=== PATIENT | male | born 1930 | race Caucasian/White ===

== ENCOUNTER 2016-11-26 16:36 | Inpatient (IN) | payer MEDICARE, BC ==
[2016-11-26] MEDS ORDERED: NS 0.9% 1000 ML* 1,000 ML IV ONE (17:15)
[2016-11-26 17:52] LABS: Hematocrit 42 % (42-52); Hemoglobin 14.3 g/dl (14.0-18.0); Mean Corpuscular HGB Conc 34 g/dl (31-36); Mean Corpuscular Hemoglobin 30 pg (27-31); Mean Corpuscular Volume 88 fL (80-94); Mean Platelet Volume 8 um3 (7.4-10.4); Red Cell Distribution Width 13 % (10.5-15); White Blood Count 7.5 10^3/ul (3.5-10.8)
--- NOTE | 2016-11-26 17:53 | RAD ---
INDICATION: Syncope COMPARISON: August 10, 2014 TECHNIQUE: An AP portable view obtained at 1730 hours is submitted. FINDINGS: Bones/Soft Tissues: There are no acute bony findings. Cardiomediastinal: The cardiomediastinal silhouette is normal. Lungs: There are no infiltrates. Pleura: There are no pleural effusions. Other: None IMPRESSION: NO ACTIVE DISEASE.
[2016-11-26 18:09] LABS: Albumin 3.7 g/dL (3.2-5.2); BUN/Creatinine Ratio 26.7 (8-20); Calcium 8.9 mg/dL (8.6-10.3); EGFR African American 90.1 (>60); Magnesium 1.7 mg/dL (1.9-2.7); Potassium 3.5 mmol/L (3.5-5.0); Total Bilirubin 1.3 mg/dL (0.2-1.0); Total Protein 6.7 g/dL (6.4-8.9)
[2016-11-26 18:10] LABS: Troponin I 0.01 ng/mL (<0.04)
--- NOTE | 2016-11-26 18:14 | RAD ---
INDICATION: Syncope COMPARISON: CT brain August 10, 2014 TECHNIQUE: Noncontrast axial source images were acquired from the skull base to the vertex. FINDINGS: Ventricles/sulci: There is cortical atrophy with compensatory dilatation of the CSF spaces. Brain parenchyma: There is mild periventricular and subcortical white matter change compatible with chronic ischemia. Intracranial hemorrhage:None. Extra-axial spaces: There are no abnormal extra axial fluid collections or evidence of extra-axial mass. Calvarium: There is no calvarial fracture or other calvarial abnormality. Scalp: There is no evidence of scalp or extracalvarial soft tissue abnormality. Paranasal sinuses/mastoid: The paranasal sinuses and mastoid air cells are clear. 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 IMPRESSION: No acute intracranial findings. 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
--- NOTE | 2016-11-26 18:19 | RAD ---
INDICATION: Syncope COMPARISON: None TECHNIQUE: Noncontrast axial source images was performed from the skull base to the thoracic inlet. Coronal and and sagittal reformatted images were generated. FINDINGS: Vertebrae: There is no fracture or acute focal bony lesion. There is minor mid cervical facet arthropathy. Alignment: The craniocervical junction appears normal. The cervical vertebrae are normally aligned. Central Canal: There are no significant CT abnormalities of the central canal or foramina. MR imaging is a more sensitive method to evaluate the canal and foramina. Intervertebral disc spaces: The disc spaces are maintained. Brain: The visualized brain appears unremarkable. Soft tissues: The visualized soft tissue elements of the neck are unremarkable. The prevertebral soft tissues appear normal. The lung apices are clear. IMPRESSION: NO ACUTE FINDINGS. MINOR AGE-RELATED DEGENERATIVE CHANGE.
[2016-11-26] MEDS ORDERED: Diltiazem IV* 5 MG/ML 5 ML VIAL (for loading dose/IV Push) (25 MG) IV SLOW PU ONE (18:26)
[2016-11-26 18:35] LABS: TSH (Thyroid Stimulating Horm) 1.47 mcIU/mL (0.34-5.60)
[2016-11-26] MEDS ORDERED: Heparin VIAL(*) 5000 UNITS/ML VIAL (FIVE THOUSAND) IV SCH (20:00)
[2016-11-26] MEDS ORDERED: Heparin DRIP 25,000 UNITS(*) 25,000 UNITS/500 ML BAG IVPB SCH (20:00)
[2016-11-26] MEDS ORDERED: Potassium Chlor TAB* 20 MEQ TAB.ER PO ONE (20:08)
[2016-11-26] MEDS ORDERED: Magnesium Sulfate 2 GM IV* 2 GM/50 ML BAG IVPB ONE (20:09)
[2016-11-26] MEDS ORDERED: NS 0.9% 1000 ML* 1,000 ML IV SCH (20:15)
--- NOTE | 2016-11-26 20:20 | ED ---
Bill Nice Rebecca, scribed for Vika Coy MD on 11/26/16 at 1648 . Syncope/Near Syncope - HPI Summary HPI Summary: Pt is an 86 y/o M BIBA who presents to ED s/p syncopal episode with positive LOC. Pt is unsure of the exact time that LOC occurred, stating that it occurred at some point at 1200 today. Reports he "woke up on the floor" and could not get up due to "not having strength." LOC aggravated by nothing, alleviated by spontaneous resolution. Pt c/o generalized weakness, rhinorrhea and DOLAN. Pt reports DOLAN is currently moderate, ranked 4/10. Denies CP, SOB, urinary or bowel incontinence. Pt lives alone but has a daughter that lives locally. He expresses concerns that he would not like to be D/C and that he is concerned about the episode that occurred today. - History Of Current Complaint Chief Complaint: EDSyncope Time Seen by Provider: 11/26/16 16:47 Hx Obtained From: Patient Onset/Duration: Sudden Onset, Resolved Timing: Constant Context: Loss Of Consciousness Activity At Onset: Unknown Associated Head Trauma: Yes Aggravating Factor(s): Nothing Alleviating Factor(s): Spontaneous Resolution Associated Signs And Symptoms: Headache, Weakness - Generalized, Other - Rhinorrhea Frequency: Episodes x___ - 1 - Allergies/Home Medications Allergies/Adverse Reactions: Allergies Allergy/AdvReac Type Severity Reaction Status Date / Time No Known Allergies Allergy Verified 08/10/14 12:40 Home Medications: Home Medications Aspirin EC Low Dose* [Ecotrin EC Low Dose 81 MG*] 81 mg PO DAILY 11/26/16 [ History Confirmed 11/26/16] Atorvastatin* [Lipitor 20 MG*] 20 mg PO DAILY 11/26/16 [History Confirmed ] Phosphatidylserine [Neuro-Ps] 150 mg PO DAILY 11/26/16 [History Confirmed ] PMH/Surg Hx/FS Hx/Imm Hx Previously Healthy: No Endocrine/Hematology History: Denies: Hx Diabetes, Hx Thyroid Disease, Hx Anemia Cardiovascular History: Reports: Hx Coronary Artery Disease - 2 STENTS, Hx Hypercholesterolemia, Hx Hypertension - ON MEDICATION FOR, Hx Syncope - Admission Dx Denies: Hx Angina, Hx Atrial Fibrillation, Hx Myocardial Infarction, Hx Pacemaker/ICD, Hx Rheumatic Fever, Hx Valvular Heart Disease Respiratory History: Denies: Hx Asthma, Hx Chronic Obstructive Pulmonary Disease (COPD) GI History: Reports: Hx Gall Bladder Disease, Hx Gastroesophageal Reflux Disease , Hx Hiatal Hernia History: Reports: Hx Benign Prostatic Hyperplasia Denies: Hx Dialysis, Hx Kidney Infection, Hx Kidney Stones Musculoskeletal History: Reports: Hx Back Problems - ruptured disc Denies: Hx Arthritis Sensory History: Reports: Hx Cataracts - surgery to both eyes, Hx Contacts or Glasses Denies: Hx Glaucoma, Hx Macular Degeneration, Hx Deafness, Hx Hearing Aid, Hx Hearing Problem Opthamlomology History: Reports: Hx Cataracts - surgery to both eyes, Hx Contacts or Glasses Denies: Hx Glaucoma, Hx Macular Degeneration Neurological History: Reports: Other Neuro Impairments/Disorders - aneurysm on CT brain 11/26/16, stable Psychiatric History: Denies: Hx Panic Disorder - Surgical History Surgery Procedure, Year, and Place: CATARACTS. TOOTH EXTRACTIONS. CARDIAC STENTS--4-5 YEARS AGO-[place]. gallbladder removed 2013. ERCP-2013. cholecystectomy-02/2014 Hx Anesthesia Reactions: No Infectious Disease History: No Infectious Disease History: Denies: Traveled Outside the [place] in Last 30 Days - Family History Known Family History: Positive: Cardiac Disease, Other - Stroke - Social History Lives: Alone Alcohol Use: Occasionally Alcohol Amount: 1 BEER Substance Use Type: Reports: None Smoking Status (MU): Former Smoker Amount Used/How Often: 1/2- 1 PPD X ? YEARS Have You Smoked in the Last Year: No Review of Systems Positive: Fatigue Positive: Nasal Discharge Negative: Chest Pain Negative: Shortness Of Breath Gastrointestinal: Negative Negative: incontinence Musculoskeletal: Negative Positive: Headache, Weakness - Generalized, Syncope - with positive LOC All Other Systems Reviewed And Are Negative: Yes Physical Exam Triage Information Reviewed: Yes Vital Signs On Initial Exam: Initial Vitals Temp Pulse Resp BP Pulse Ox 98.8 F 88 16 136/55 99 11/26/16 16:41 11/26/16 16:41 11/26/16 16:41 11/26/16 16:41 11/26/16 16:41 Vital Signs Reviewed: Yes Appearance: Positive: Well-Nourished, Ill-Appearing, Pain Distress Skin: Positive: Skin Color Reflects Adequate Perfusion, Other - Normal Head/Face: Positive: Normal Head/Face Inspection Eyes: Positive: Conjunctiva Clear ENT: Positive: Normal ENT inspection, Hearing grossly normal. Negative: Muffled /hoarse voice Neck: Positive: Supple, Nontender, No Lymphadenopathy Respiratory/Lung Sounds: Positive: Clear to Auscultation, Breath Sounds Present , Other - No respiratory distress Cardiovascular: Positive: RRR, Pulses are Symmetrical in both Upper and Lower Extremities, Tachycardia - afib on monitor, Other - Brisk capillary refill. Negative: Murmur, Rub Abdomen Description: Positive: Nontender, No Organomegaly, Soft. Negative: CVA Tenderness (R), CVA Tenderness (L), Distended, Guarding, Hepatomegaly, McBurney' s Point Tenderness, Peritoneal Signs, Pulsatile Mass, Splenomegaly Bowel Sounds: Positive: Present Musculoskeletal: Positive: Strength/ROM Intact. Negative: Edema Left, Edema Right Neurological: Positive: Sensory/Motor Intact, Alert, Oriented to Person Place, Time, Speech Normal. Negative: Facial Droop, Focal Deficit @, Slurred Speech Psychiatric: Positive: Normal Diagnostics - Vital Signs Vital Signs Temp Pulse Resp BP Pulse Ox 11/26/16 16:46 83 17 98 11/26/16 16:45 136/55 11/26/16 16:41 98.8 F 88 16 136/55 99 - Laboratory Lab Results: Lab Results 11/26/16 11/26/16 11/26/16 Range/Units 17:38 17:38 17:38 WBC 7.5 (3.5-10.8) 10^3/ul RBC 4.80 (4.0-5.4) 10^6/ul Hgb 14.3 (14.0-18.0) g/dl Hct 42 (42-52) % MCV 88 (80-94) fL MCH 30 (27-31) pg MCHC 34 (31-36) g/dl RDW 13 (10.5-15) % Plt Count 142 L (150-450) 10^3/ul MPV 8 (7.4-10.4) um3 Neut % (Auto) 80.4 (38-83) % Lymph % (Auto) 8.6 L (25-47) % Elmore % (Auto) 10.6 H (1-9) % Eos % (Auto) 0.1 (0-6) % Baso % (Auto) 0.3 (0-2) % Absolute Neuts (auto) 6.0 (1.5-7.7) 10^3/ul Absolute Lymphs (auto) 0.6 L (1.0-4.8) 10^3/ul Absolute Monos (auto) 0.8 (0-0.8) 10^3/ul Absolute Eos (auto) 0 (0-0.6) 10^3/ul Absolute Basos (auto) 0 (0-0.2) 10^3/ul Absolute Nucleated RBC 0 10^3/ul Nucleated RBC % 0 INR (Anticoag Therapy) 1.14 H (0.89-1.11) APTT 29.9 (26.0-36.3) seconds Sodium 134 (133-145) mmol/L Potassium 3.5 (3.5-5.0) mmol/L Chloride 97 L (101-111) mmol/L Carbon Dioxide 29 (22-32) mmol/L Anion Gap 8 (2-11) mmol/L BUN 27 H (6-24) mg/dL Creatinine 1.01 (0.67-1.17) mg/dL Est GFR ( Amer) 90.1 (>60) Est GFR (Non-Af Amer) 70.0 (>60) BUN/Creatinine Ratio 26.7 H (8-20) Glucose 130 H (70-100) mg/dL Lactic Acid (0.5-2.0) mmol/L Calcium 8.9 (8.6-10.3) mg/dL Magnesium 1.7 L (1.9-2.7) mg/dL Total Bilirubin 1.30 H (0.2-1.0) mg/dL AST 18 (13-39) U/L ALT 16 (7-52) U/L Alkaline Phosphatase 53 (34-104) U/L Total Creatine Kinase 54 (10-223) U/L Troponin I 0.01 (<0.04) ng/mL B-Natriuretic Peptide ( - 100) pg/mL Total Protein 6.7 (6.4-8.9) g/dL Albumin 3.7 (3.2-5.2) g/dL Globulin 3.0 (2-4) g/dL Albumin/Globulin Ratio 1.2 (1-3) TSH 1.47 (0.34-5.60) mcIU/mL 11/26/16 11/26/16 Range/Units 17:38 17:38 WBC (3.5-10.8) 10^3/ul RBC (4.0-5.4) 10^6/ul Hgb (14.0-18.0) g/dl Hct (42-52) % MCV (80-94) fL MCH (27-31) pg MCHC (31-36) g/dl RDW (10.5-15) % Plt Count (150-450) 10^3/ul MPV (7.4-10.4) um3 Neut % (Auto) (38-83) % Lymph % (Auto) (25-47) % Elmore % (Auto) (1-9) % Eos % (Auto) (0-6) % Baso % (Auto) (0-2) % Absolute Neuts (auto) (1.5-7.7) 10^3/ul Absolute Lymphs (auto) (1.0-4.8) 10^3/ul Absolute Monos (auto) (0-0.8) 10^3/ul Absolute Eos (auto) (0-0.6) 10^3/ul Absolute Basos (auto) (0-0.2) 10^3/ul Absolute Nucleated RBC 10^3/ul Nucleated RBC % INR (Anticoag Therapy) (0.89-1.11) APTT (26.0-36.3) seconds Sodium (133-145) mmol/L Potassium (3.5-5.0) mmol/L Chloride (101-111) mmol/L Carbon Dioxide (22-32) mmol/L Anion Gap (2-11) mmol/L BUN (6-24) mg/dL Creatinine (0.67-1.17) mg/dL Est GFR ( Amer) (>60) Est GFR (Non-Af Amer) (>60) BUN/Creatinine Ratio (8-20) Glucose (70-100) mg/dL Lactic Acid 0.8 (0.5-2.0) mmol/L Calcium (8.6-10.3) mg/dL Magnesium (1.9-2.7) mg/dL Total Bilirubin (0.2-1.0) mg/dL AST (13-39) U/L ALT (7-52) U/L Alkaline Phosphatase (34-104) U/L Total Creatine Kinase (10-223) U/L Troponin I (<0.04) ng/mL B-Natriuretic Peptide 91 ( - 100) pg/mL Total Protein (6.4-8.9) g/dL Albumin (3.2-5.2) g/dL Globulin (2-4) g/dL Albumin/Globulin Ratio (1-3) TSH (0.34-5.60) mcIU/mL Result Diagrams: 11/26/16 17:38 11/26/16 17:38 Lab Statement: Any lab studies that have been ordered have been reviewed, and results considered in the medical decision making process. - Radiology CXR Xray Interpretation: No Acute Changes - NO ACTIVE DISEASE Radiology Interpretation Completed By: Radiologist - CT Brain CT CT Interpretation: No Acute Changes - No acute intracranial findings. Stable 5.[address] Interpretation Completed By: Radiologist C-Spine CT CT Interpretation: No Acute Changes - NO ACUTE FINDINGS. MINOR AGE-RELATED DEGENERATIVE CHANGE. CT Interpretation Completed By: Radiologist - EKG 1650 Cardiac Rate: NL - 80 bpm EKG Rhythm: Sinus Rhythm Ectopy: PACs EKG Interpretation: Nl AV/IV CT, nl QTC, negative axis (-12) EKG Comparison: No Significant Change - As compared with EKG on 08/11/2014 Re-Evaluation - Re-Evaluation First Eval Re-Evaluation Time: 18:18 Change: Unchanged Comment: Discussed his intermittent A Fib since being in the ED. Reports he has no Hx of a fib and continues to c/o DOLAN. Course/Dx Assessment/Plan: Pt is an 86 y/o M BIBA who presents to ED s/p syncopal episode with positive LOC. Pt is unsure of the exact time that LOC occurred, stating that it occurred at some point at 1200 today. LOC aggravated by nothing, alleviated by spontaneous resolution. Pt c/o generalized weakness, rhinorrhea and DOLAN. Pt reports DOLAN is currently moderate, ranked 4/10. Denies CP, SOB, urinary or bowel incontinence. CXR, Brain CT and C-Spine CT reveal no acute findings. EKG reveals normal sinus rhythm with nl AV/IV CT, nl QTC, negative axis (-12) and is unchanged from a prior EKG. On monitor pt noted with rapid rhythm 130-160's consistent with new onset afib. Diltiazem 20mg IV given with decrease rate to 100's/ Discussed care of pt with Dr. Proctor who accepts pt for admission. Pt will be admitted with Dx of new onset A-fib and syncope. He understands and agrees. - Diagnoses Differential Diagnosis/HQI/PQRI: Positive: Coronary Artery Disease, Dysrhythmia , Metabolic Reaction, Myocardial Infarction Provider Diagnoses: New onset a-fib, Syncope - Physician Notifications Discussed Care of Patient With: Piotr Proctor Time Discussed With Above Provider: 19:15 Instructed by Provider To: Other - Accepts pt for admission. Discharge - Discharge Plan Condition: Good Disposition: ADMITTED TO [facility] The documentation as recorded by the Bill garay Rebecca accurately reflects the service I personally performed and the decisions made by , Vika Coy MD.
[2016-11-26 21:07] LABS: Urine Bilirubin Negative (Negative); Urine Glucose Negative (Negative); Urine Nitrite Negative (Negative)
[2016-11-26] MEDS: Metoprolol Tartrate TAB* 25 MG PO SCH (21:21)
--- NOTE | 2016-11-27 06:07 | HP ---
HISTORY AND PHYSICAL: DATE OF ADMISSION: 11/26/16 PRIMARY CARE PROVIDER: Esvin Tristan MD. ATTENDING PHYSICIAN: Ed Sim MD * (dictated by Anca Delgadillo NP). CHIEF COMPLAINT: Syncopal episode. HISTORY OF PRESENT ILLNESS: Mr. Campbell is an 86-year-old man with past medical history significant for coronary artery disease, hypertension, hyperlipidemia and valvular heart disease who presents to the emergency room with complaints of a headache and syncopal episode earlier today at home. According to Mr. Campbell, he has been feeling in his normal state of health with the exception of having sweats earlier today that soaked his clothes. He also reports three days of low back pain. He is unsure if this is similar to her normal low back pain or if this is new. He denies any numbness, tingling or extremity weakness. He denies any fever, chills, chest pain, palpitations, cough, shortness of breath, nausea, vomiting and diarrhea. The patient reports a headache since the syncopal episode that starts and goes up the back of his neck and into his head; if he does not think about, it it does not bother him. The patient also reports intermittent urinary incontinence. He says that this is normal for him. Due to concern, the patient presented to the emergency room for further evaluation of his symptoms. While in the emergency room, the patient initially had an EKG showing sinus rhythm with a rate of 80 and no acute signs of ischemia. The patient had a chest x-ray showing no active cardiopulmonary disease. He had a brain CT showing no acute intracranial findings and a stable 5.5 mm basilar tip aneurysm. The patient had a C-spine CT scan showing no acute findings and minor age-related degenerative changes. During the patient's time down in the ER, he was monitored on a accounting machine mechanic at which time, he was noted to have elevated heart rate. Upon further assessment, it appeared the patient was in an atrial fibrillation. The patient received a bolus of IV Cardizem and converted in a sinus rhythm with the rate into the 80s. The patient had labs that were fairly unremarkable. His potassium was noted to be 3.5 and his magnesium 1.7. Troponin 0.01 and TSH 1.47. The hospitalists were asked to evaluate the patient for admission. PAST MEDICAL HISTORY: 1. Mixed valvular disease. 2. Coronary artery disease. 3. Hyperlipidemia. 4. Hypertension. 5. GERD. 6. Gallstones. 7. BPH. 8. Chronic back pain. PAST SURGICAL HISTORY: 1. Status post bilateral cataract extraction. 2. Status post cholecystectomy. 3. Status post cardiac catheterization with angioplasty and cardiac stents x2 placed in the LAD and RCA. HOME MEDICATIONS: Include, 1. Potassium 20 mEq oral every morning and 10 mEq oral every evening. 2. Omeprazole 20 mg oral daily. 3. Multivitamin one tablet oral daily. 4. Metoprolol tartrate 25 mg oral twice daily. 5. Hydrochlorothiazide 25 mg oral daily. 6. Fosinopril 40 mg oral daily. 7. Aspirin 81 mg oral daily. 8 Atorvastatin 20 mg oral daily. 9. Glucosamine 3 tablets oral daily. 10. Back and Body 500/30 2.5 one to two tablets oral as needed for pain. 11. Neuro PS 150 mg oral daily. ALLERGIES: No known drug allergies. FAMILY HISTORY: The patient denies any family history of coronary artery disease or diabetes mellitus. The patient had an uncle with a history of brain tumor. SOCIAL HISTORY: The patient is a former smoker. He quit smoking approximately 30 years ago. Prior to that he smoked on and off for approximately 10 years. The patient occasionally drinks alcohol. He denies recreational drug use. He is retired, lives with his significant other. His daughter Amanda Campbell will be his surrogate decision maker in the event that he is unable to make decisions for himself. REVIEW OF SYSTEMS: I performed a 14-point review of systems. All the pertinent positives and negatives are mentioned in the history of present illness. The remaining review of systems is negative. PHYSICAL EXAMINATION GENERAL APPEARANCE: The patient is alert, pleasant, appears to be in no acute distress. VITAL SIGNS: Temperature 98.8, heart rate 101, respiratory rate 20, O2 sat 94% on room air, blood pressure 124/58. HEENT: Normocephalic, atraumatic. Pupils are equal and reactive to light. Extraocular movements are intact. RESPIRATORY: There is no accessory muscle use and lungs are clear to auscultation bilateral. CARDIOVASCULAR: Regular rate and rhythm. S1, S2 present. There are no murmurs , rubs, or gallops heard. ABDOMEN: Soft, nontender, nondistended. There are bowel sounds present x4. EXTREMITIES: There is no lower extremity edema. DP and PT pulses are 2+ and symmetric. MUSCULOSKELETAL: There is no clubbing or cyanosis noted. The patient exhibits good strength in all extremities. NEUROLOGIC: The patient is alert and oriented x4. Cranial nerves II through XII are grossly intact. PSYCHOLOGICAL: The patient is calm and cooperative. SKIN: There are no rashes or abnormalities seen. DIAGNOSTIC STUDIES/LABORATORY DATA: Sodium 134, potassium 3.5, chloride 97, CO2 29, BUN 27, creatinine 1.01, and glucose 130. Magnesium 1.7, troponin 0.01 , TSH 1.47. White blood cell count 7.5, hemoglobin 14.3, hematocrit 42, and platelet count 142. EKG shows a sinus rhythm with a rate of 80. No signs of acute ischemia. There are no changes when compared to previous EKG from 08/21/14. 1. Chest x-ray from today. Radiologist impression: No active disease. 2. Brain CT from today. Radiologist impression: No acute intracranial findings. 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 3. Cervical spine CT from today. Radiologist impression: No acute findings. Minor age-related degenerative change. IMPRESSION: Mr. Campbell is an 86-year-old man with past medical history significant for coronary artery disease, hypertension, hyperlipidemia, who presents to the emergency room with complaints of a syncopal episode with loss of consciousness. He will be admitted under observation for new onset atrial fibrillation and syncope. ASSESSMENT/PLAN: 1. New onset atrial fibrillation. The patient is currently in sinus rhythm. He received a bolus of IV Cardizem in the ER. For now, we will hold on any further medications. We will continue the patient on his home metoprolol dosing. The patient will be placed on a heparin drip. I have discussed with him the need for anticoagulation as his [id number] score is 4 putting him at a stroke risk of 4.8% per year and greater than 90,000 patients and 6.7% risk of stroke/TIA/systemic embolism. Due to the patient's history of valvular heart disease, he is not a candidate for Xarelto and would need to be on warfarin or Eliquis. The patient last had an echocardiogram in May 2016 showing a mixed valvular heart disease with an EF of 55% to 60%, aortic valve with mild regurgitation, mitral valve trace regurgitation, tricuspid mild-to- moderate regurgitation and pulmonic mild regurgitation. The patient will have a goal of potassium of greater than 4 and magnesium of greater than 2. 2. Syncope. The patient will be monitored on telemetry. I suspect part of this is related to the patient being slightly dehydrated. We will get him another liter of IV fluids, overnight and monitor her on telemetry. At this time, we will hold of an echocardiogram as he just had one in May. 3. Electrolyte abnormalities. Hypomagnesemia and hypokalemia. The patient will receive electrolyte replacement. We will recheck the labs in the morning. Due to the patient's new onset of atrial fibrillation he will have a goal of potassium greater than 4 and magnesium greater than 2. 4. Hypertension. At this time, the patient is normotensive. He will be continued on home metoprolol and fosinopril. 5. Hyperlipidemia. The patient will be continued on his home atorvastatin. 6. History of coronary artery disease. The patient will be continued on his beta- delbert, aspirin and statin. 7. Fluid, electrolytes, and nutrition. Heart healthy diet. 8. Code status. Full code. 9. DVT prophylaxis. The patient is at high risk and will be placed on a heparin drip. 10. Disposition. Observation. TIME SPENT: The time for this admission was 60 minutes, greater than half of that was spent with the patient and family discussing medications, past medical history, and the events leading up to his arrival today and performing a physical examination. The case was then reviewed with the attending, Dr. Sim, who agrees with the plan of care. Reviewed by OSMANI CANCHOLA 11/27/16 [id number]/[facility] #: [id number] JERRY
[2016-11-27 06:15] LABS: Hematocrit 39 % (42-52); Hemoglobin 13.2 g/dl (14.0-18.0); Mean Corpuscular HGB Conc 34 g/dl (31-36); Mean Corpuscular Hemoglobin 30 pg (27-31); Mean Corpuscular Volume 88 fL (80-94); Mean Platelet Volume 8 um3 (7.4-10.4); Red Cell Distribution Width 13 % (10.5-15); White Blood Count 5.4 10^3/ul (3.5-10.8)
[2016-11-27 06:28] LABS: BUN/Creatinine Ratio 26.7 (8-20); Calcium 8.1 mg/dL (8.6-10.3); EGFR African American 90.1 (>60); Magnesium 2.1 mg/dL (1.9-2.7); Potassium 3.4 mmol/L (3.5-5.0)
[2016-11-27] MEDS ORDERED: Lisinopril TAB* 10 MG PO SCH ×2 (09:00→13:22)
[2016-11-27] MEDS: Acetaminophen TAB* 325 MG PO PRN ×3 (09:03→20:14)
[2016-11-27] MEDS: Atorvastatin* 20 MG TAB PO SCH (09:04)
[2016-11-27] MEDS: Aspirin EC Low Dose* 81 MG TAB.EC PO SCH (09:04)
[2016-11-27] MEDS: Potassium Chlor TAB* 10 MEQ TAB.ER PO SCH (09:04)
[2016-11-27] MEDS: Metoprolol Tartrate TAB* 25 MG PO SCH (09:04)
[2016-11-27] MEDS: Hydrochlorothiazide TAB* 25 MG PO SCH (09:04)
[2016-11-27] MEDS: Omeprazole CAP* 20 MG PO SCH (09:04)
[2016-11-27] MEDS: Multivitamins/Minerals TAB PO SCH (09:04)
--- NOTE | 2016-11-27 13:47 | PN ---
Subjective Date of Service: 11/27/16 Interval History: C/O lower back pain. Had syncope yesterday, also 2 yrs ago. No palpitations. His SO states his HR was 120 in the ED. Objective Active Medications: Acetaminophen (Tylenol Tab*) 650 mg PO Q4H PRN PRN Reason: FEVER,PAIN Last Admin: 11/27/16 13:28 Dose: 650 mg Aspirin (Aspirin Ec Low Dose*) 81 mg PO DAILY [facility] Last Admin: 11/27/16 09:04 Dose: 81 mg Atorvastatin Calcium (Lipitor*) 20 mg PO DAILY [facility] Last Admin: 11/27/16 09:04 Dose: 20 mg Hydrochlorothiazide (Hydrodiuril Tab*) 25 mg PO DAILY [facility] Last Admin: 11/27/16 09:04 Dose: 25 mg Lisinopril (Prinivil Tab*) 10 mg PO DAILY [facility] Lisinopril (Prinivil Tab*) 20 mg PO DAILY [facility] Metoprolol Tartrate (Lopressor Tab*) 50 mg PO BID [facility] Multivitamins/Minerals (Theragran/Minerals Tab*) 1 tab PO DAILY [facility] Last Admin: 11/27/16 09:04 Dose: 1 tab Omeprazole (Prilosec Cap*) 20 mg PO DAILY [facility] Last Admin: 11/27/16 09:04 Dose: 20 mg Potassium Chloride (Klor Con Er Tab*) 10 meq PO DAILY [facility] Last Admin: 11/27/16 09:04 Dose: 10 meq Warfarin Sodium (Coumadin Tab(*)) 5 mg PO DAILY@1700 [facility] PRN Reason: Protocol Vital Signs 11/26/16 11/26/16 11/27/16 19:51 23:49 04:02 Temperature 100.1 F 99.3 F 99.7 F Pulse Rate 86 80 82 Respiratory 20 16 16 Rate Blood Pressure 131/62 108/49 117/55 (mmHg) O2 Sat by Pulse 99 94 94 Oximetry 11/27/16 11/27/16 08:14 11:16 Temperature 101.1 F 98.9 F Pulse Rate 96 62 Respiratory 16 16 Rate Blood Pressure 130/62 105/51 (mmHg) O2 Sat by Pulse 91 97 Oximetry Oxygen Devices in Use Now: None Appearance: Alert, partly up in bed. In good spirits. Looks comfortable at rest. Eyes: No Scleral Icterus Neck: NL Appearance and Movements; NL JVP, No Thyroid Enlargement, Masses Respiratory: Symmetrical Chest Expansion and Respiratory Effort, Clear to Auscultation, Clear to Percussion Cardiovascular: RRR, No Edema, - - 1/6 systolic murmur across precordium Extremities: No Edema, No Clubbing, Cyanosis, - Skin: No Rash or Ulcers, No Nodules or Sclerosis, - Neurological: Alert and Oriented x 3, NL Sensation, - - Sl wide -based gait. Got OOB unassisted with mild discomfort, walked to BR. Result Diagrams: 11/27/16 05:56 11/27/16 05:56 Additional Lab and Data: Lab Results 11/26/16 11/26/16 11/26/16 Range/Units 17:38 17:38 17:38 WBC 7.5 (3.5-10.8) 10^3/ul RBC 4.80 (4.0-5.4) 10^6/ul Hgb 14.3 (14.0-18.0) g/dl Hct 42 (42-52) % MCV 88 (80-94) fL MCH 30 (27-31) pg MCHC 34 (31-36) g/dl RDW 13 (10.5-15) % Plt Count 142 L (150-450) 10^3/ul MPV 8 (7.4-10.4) um3 Neut % (Auto) 80.4 (38-83) % Lymph % (Auto) 8.6 L (25-47) % [place] % (Auto) 10.6 H (1-9) % Eos % (Auto) 0.1 (0-6) % Baso % (Auto) 0.3 (0-2) % Absolute Neuts (auto) 6.0 (1.5-7.7) 10^3/ul Absolute Lymphs (auto) 0.6 L (1.0-4.8) 10^3/ul Absolute Monos (auto) 0.8 (0-0.8) 10^3/ul Absolute Eos (auto) 0 (0-0.6) 10^3/ul Absolute Basos (auto) 0 (0-0.2) 10^3/ul Absolute Nucleated RBC 0 10^3/ul Nucleated RBC % 0 INR (Anticoag Therapy) 1.14 H (0.89-1.11) APTT 29.9 (26.0-36.3) seconds Sodium 134 (133-145) mmol/L Potassium 3.5 (3.5-5.0) mmol/L Chloride 97 L (101-111) mmol/L Carbon Dioxide 29 (22-32) mmol/L Anion Gap 8 (2-11) mmol/L BUN 27 H (6-24) mg/dL Creatinine 1.01 (0.67-1.17) mg/dL Est GFR ( Amer) 90.1 (>60) Est GFR (Non-Af Amer) 70.0 (>60) BUN/Creatinine Ratio 26.7 H (8-20) Glucose 130 H (70-100) mg/dL Lactic Acid (0.5-2.0) mmol/L Calcium 8.9 (8.6-10.3) mg/dL Magnesium 1.7 L (1.9-2.7) mg/dL Total Bilirubin 1.30 H (0.2-1.0) mg/dL AST 18 (13-39) U/L ALT 16 (7-52) U/L Alkaline Phosphatase 53 (34-104) U/L Total Creatine Kinase 54 (10-223) U/L Troponin I 0.01 (<0.04) ng/mL B-Natriuretic Peptide ( - 100) pg/mL Total Protein 6.7 (6.4-8.9) g/dL Albumin 3.7 (3.2-5.2) g/dL Globulin 3.0 (2-4) g/dL Albumin/Globulin Ratio 1.2 (1-3) TSH 1.47 (0.34-5.60) mcIU/mL 11/26/16 11/26/16 Range/Units 17:38 17:38 WBC (3.5-10.8) 10^3/ul RBC (4.0-5.4) 10^6/ul Hgb (14.0-18.0) g/dl Hct (42-52) % MCV (80-94) fL MCH (27-31) pg MCHC (31-36) g/dl RDW (10.5-15) % Plt Count (150-450) 10^3/ul MPV (7.4-10.4) um3 Neut % (Auto) (38-83) % Lymph % (Auto) (25-47) % [place] % (Auto) (1-9) % Eos % (Auto) (0-6) % Baso % (Auto) (0-2) % Absolute Neuts (auto) (1.5-7.7) 10^3/ul Absolute Lymphs (auto) (1.0-4.8) 10^3/ul Absolute Monos (auto) (0-0.8) 10^3/ul Absolute Eos (auto) (0-0.6) 10^3/ul Absolute Basos (auto) (0-0.2) 10^3/ul Absolute Nucleated RBC 10^3/ul Nucleated RBC % INR (Anticoag Therapy) (0.89-1.11) APTT (26.0-36.3) seconds Sodium (133-145) mmol/L Potassium (3.5-5.0) mmol/L Chloride (101-111) mmol/L Carbon Dioxide (22-32) mmol/L Anion Gap (2-11) mmol/L BUN (6-24) mg/dL Creatinine (0.67-1.17) mg/dL Est GFR ( Amer) (>60) Est GFR (Non-Af Amer) (>60) BUN/Creatinine Ratio (8-20) Glucose (70-100) mg/dL Lactic Acid 0.8 (0.5-2.0) mmol/L Calcium (8.6-10.3) mg/dL Magnesium (1.9-2.7) mg/dL Total Bilirubin (0.2-1.0) mg/dL AST (13-39) U/L ALT (7-52) U/L Alkaline Phosphatase (34-104) U/L Total Creatine Kinase (10-223) U/L Troponin I (<0.04) ng/mL B-Natriuretic Peptide 91 ( - 100) pg/mL Total Protein (6.4-8.9) g/dL Albumin (3.2-5.2) g/dL Globulin (2-4) g/dL Albumin/Globulin Ratio (1-3) TSH (0.34-5.60) mcIU/mL Assess/Plan/Problems-Billing Assessment: - Patient Problems (1) PAF (paroxysmal atrial fibrillation) Current Visit: Yes Status: Acute Code(s): I48.0 - PAROXYSMAL ATRIAL FIBRILLATION SNOMED Code(s): 558734784 Comment: Start warfarin. Increase metoprolol to 50 mg bid and reduce lisinopril to 10 mg daily. Anticipate discharge 11/28 if stable. (2) CAD (coronary artery disease) Current Visit: No Status: Chronic Priority: Medium Code(s): I25.10 - ATHSCL HEART DISEASE OF [place] CORONARY ARTERY W/O ANG PCTRS SNOMED Code(s): 34240817 Comment: Continue ASA, statin, BB. (3) HTN (hypertension) Current Visit: No Status: Chronic Priority: High Code(s): I10 - ESSENTIAL (PRIMARY) HYPERTENSION SNOMED Code(s): 70887219 Comment: Will change back to fosinopril on discharge. (4) GERD (gastroesophageal reflux disease) Current Visit: Yes Status: Acute Code(s): K21.9 - GASTRO-ESOPHAGEAL REFLUX DISEASE WITHOUT ESOPHAGITIS SNOMED Code(s): 464022671 Comment: Continue omeprazole.
--- NOTE | 2016-11-27 14:12 | RAD ---
INDICATION: Low back pain. COMPARISON: There are no prior studies available for comparison. TECHNIQUE: 3 views of the lumbar spine were obtained including lateral, AP and a coned-down lateral view of the lumbar sacral junction. FINDINGS: There is a mild lumbar scoliosis convex toward the right side. The vertebra are otherwise in normal alignment. No fracture is seen. There is [id number] disc space narrowing and endplate hypertrophic changes at the L1-L2, L2-L3, L4-L5 and L5-S1 levels consistent with mild to moderate diffuse degenerative disc disease. 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
[2016-11-27] MEDS: Warfarin TAB(*) 5 MG PO SCH (16:22)
[2016-11-27] MEDS: Metoprolol Tartrate TAB* 50 mg PO SCH (20:14)
[2016-11-28] MEDS: Acetaminophen TAB* 325 MG PO PRN ×3 (03:44→22:15)
[2016-11-28 05:32] LABS: Hematocrit 38 % (42-52); Hemoglobin 13.2 g/dl (14.0-18.0); Mean Corpuscular HGB Conc 35 g/dl (31-36); Mean Corpuscular Hemoglobin 30 pg (27-31); Mean Corpuscular Volume 87 fL (80-94); Mean Platelet Volume 8 um3 (7.4-10.4); Red Blood Count 4.39 10^6/ul (4.0-5.4); Red Cell Distribution Width 13 % (10.5-15); White Blood Count 4.9 10^3/ul (3.5-10.8)
[2016-11-28 09:09] LABS: Urine Bilirubin Negative (Negative); Urine Glucose Negative (Negative); Urine Nitrite Negative (Negative)
[2016-11-28] MEDS: Omeprazole CAP* 20 MG PO SCH (09:12)
[2016-11-28] MEDS: Multivitamins/Minerals TAB PO SCH (09:12)
[2016-11-28] MEDS: Atorvastatin* 20 MG TAB PO SCH (09:12)
[2016-11-28] MEDS: Aspirin EC Low Dose* 81 MG TAB.EC PO SCH (09:12)
[2016-11-28] MEDS: Potassium Chlor TAB* 10 MEQ TAB.ER PO SCH (09:13)
[2016-11-28] MEDS: traMADol TAB* 50 MG PO PRN (09:13)
[2016-11-28] MEDS: Lisinopril TAB* 10 MG PO SCH (09:13)
[2016-11-28] MEDS: Metoprolol Tartrate TAB* 50 mg PO SCH ×2 (09:14→20:01)
[2016-11-28] MEDS: Hydrochlorothiazide TAB* 25 MG PO SCH (09:14)
--- NOTE | 2016-11-28 14:02 | PN ---
"Progress Note - Progress Note Date of Service: 11/28/16 Note: Search Terms: nixon gonzales, 1930 Search Date: 11/28/2016 01:57:11 PM The Drug Utilization Report below displays all of the controlled substance prescriptions, if any, that your patient has filled in the last twelve months. The information displayed on this report is compiled from pharmacy submissions to the Department, and accurately reflects the information as submitted by the pharmacies. This report was requested by: Alfred Mejia | Reference #: [id number] There are no results for the search terms that you entered. Time spent on discharge 50 minutes."
--- NOTE | 2016-11-28 14:10 | DCNOTE ---
Subjective Date of Service: 11/28/16 Interval History: C/O back and hip pain for about 2 years, worse recently. He could walk to the without assistance but was having trouble gardening and doing cooking and cleaning and laundry at home. Objective Active Medications: Acetaminophen (Tylenol Tab*) 650 mg PO Q4H PRN PRN Reason: FEVER,PAIN Last Admin: 11/28/16 03:44 Dose: 650 mg Aspirin (Aspirin Ec Low Dose*) 81 mg PO DAILY [facility] Last Admin: 11/28/16 09:12 Dose: 81 mg Atorvastatin Calcium (Lipitor*) 20 mg PO DAILY [facility] Last Admin: 11/28/16 09:12 Dose: 20 mg Hydrochlorothiazide (Hydrodiuril Tab*) 25 mg PO DAILY [facility] Last Admin: 11/28/16 09:14 Dose: 25 mg Lisinopril (Prinivil Tab*) 10 mg PO DAILY [facility] Last Admin: 11/28/16 09:13 Dose: 10 mg Metoprolol Tartrate (Lopressor Tab*) 50 mg PO BID [facility] Last Admin: 11/28/16 09:14 Dose: 50 mg Multivitamins/Minerals (Theragran/Minerals Tab*) 1 tab PO DAILY [facility] Last Admin: 11/28/16 09:12 Dose: 1 tab Omeprazole (Prilosec Cap*) 20 mg PO DAILY [facility] Last Admin: 11/28/16 09:12 Dose: 20 mg Potassium Chloride (Klor Con Er Tab*) 10 meq PO DAILY [facility] Last Admin: 11/28/16 09:13 Dose: 10 meq Tramadol HCl (Ultram*) 50 mg PO Q8H PRN PRN Reason: PAIN Last Admin: 11/28/16 09:13 Dose: 50 mg Warfarin Sodium (Coumadin Tab(*)) 5 mg PO DAILY@1700 [facility] PRN Reason: Protocol Last Admin: 11/27/16 16:22 Dose: 5 mg Vital Signs 11/27/16 11/27/16 11/27/16 15:44 15:46 20:00 Temperature 98.4 F 98.4 F Pulse Rate 70 71 Respiratory 16 16 Rate Blood Pressure 99/51 (mmHg) O2 Sat by Pulse 96 95 Oximetry 11/27/16 11/27/16 11/28/16 20:19 23:40 03:36 Temperature 100.8 F 99.3 F 100.3 F Pulse Rate 79 84 Respiratory 16 16 16 Rate Blood Pressure 120/63 88/43 137/66 (mmHg) O2 Sat by Pulse 95 94 93 Oximetry 11/28/16 11/28/16 11/28/16 07:19 07:20 07:46 Temperature 98.9 F 98.9 F Pulse Rate 80 98 Respiratory 16 16 16 Rate Blood Pressure 111/53 106/50 (mmHg) O2 Sat by Pulse 94 95 Oximetry 11/28/16 11/28/16 11/28/16 09:13 11:13 11:23 Temperature 99.3 F Pulse Rate 65 Respiratory 16 16 16 Rate Blood Pressure 117/57 (mmHg) O2 Sat by Pulse 96 Oximetry 11/28/16 12:35 Temperature 99.3 F Pulse Rate 65 Respiratory 16 Rate Blood Pressure 117/57 (mmHg) O2 Sat by Pulse 96 Oximetry Oxygen Devices in Use Now: None Appearance: Alert, supine in bed. In fair spirits. Look comfortable. Respiratory: Symmetrical Chest Expansion and Respiratory Effort, Clear to Auscultation, Clear to Percussion Cardiovascular: NL Sounds; No Murmurs; No JVD, RRR, No Edema, - Extremities: No Edema, No Clubbing, Cyanosis, - Skin: No Nodules or Sclerosis, - - many seborrheic keratoses on trunk Neurological: Alert and Oriented x 3, NL Sensation, NL Gait Result Diagrams: 11/28/16 04:26 11/28/16 04:26 Additional Lab and Data: Lab Results 11/26/16 11/26/16 11/26/16 Range/Units 17:38 17:38 17:38 WBC 7.5 (3.5-10.8) 10^3/ul RBC 4.80 (4.0-5.4) 10^6/ul Hgb 14.3 (14.0-18.0) g/dl Hct 42 (42-52) % MCV 88 (80-94) fL MCH 30 (27-31) pg MCHC 34 (31-36) g/dl RDW 13 (10.5-15) % Plt Count 142 L (150-450) 10^3/ul MPV 8 (7.4-10.4) um3 Neut % (Auto) 80.4 (38-83) % Lymph % (Auto) 8.6 L (25-47) % [place] % (Auto) 10.6 H (1-9) % Eos % (Auto) 0.1 (0-6) % Baso % (Auto) 0.3 (0-2) % Absolute Neuts (auto) 6.0 (1.5-7.7) 10^3/ul Absolute Lymphs (auto) 0.6 L (1.0-4.8) 10^3/ul Absolute Monos (auto) 0.8 (0-0.8) 10^3/ul Absolute Eos (auto) 0 (0-0.6) 10^3/ul Absolute Basos (auto) 0 (0-0.2) 10^3/ul Absolute Nucleated RBC 0 10^3/ul Nucleated RBC % 0 INR (Anticoag Therapy) 1.14 H (0.89-1.11) APTT 29.9 (26.0-36.3) seconds Sodium 134 (133-145) mmol/L Potassium 3.5 (3.5-5.0) mmol/L Chloride 97 L (101-111) mmol/L Carbon Dioxide 29 (22-32) mmol/L Anion Gap 8 (2-11) mmol/L BUN 27 H (6-24) mg/dL Creatinine 1.01 (0.67-1.17) mg/dL Est GFR ( Amer) 90.1 (>60) Est GFR (Non-Af Amer) 70.0 (>60) BUN/Creatinine Ratio 26.7 H (8-20) Glucose 130 H (70-100) mg/dL Lactic Acid (0.5-2.0) mmol/L Calcium 8.9 (8.6-10.3) mg/dL Magnesium 1.7 L (1.9-2.7) mg/dL Total Bilirubin 1.30 H (0.2-1.0) mg/dL AST 18 (13-39) U/L ALT 16 (7-52) U/L Alkaline Phosphatase 53 (34-104) U/L Total Creatine Kinase 54 (10-223) U/L Troponin I 0.01 (<0.04) ng/mL B-Natriuretic Peptide ( - 100) pg/mL Total Protein 6.7 (6.4-8.9) g/dL Albumin 3.7 (3.2-5.2) g/dL Globulin 3.0 (2-4) g/dL Albumin/Globulin Ratio 1.2 (1-3) TSH 1.47 (0.34-5.60) mcIU/mL 11/26/16 11/26/16 Range/Units 17:38 17:38 WBC (3.5-10.8) 10^3/ul RBC (4.0-5.4) 10^6/ul Hgb (14.0-18.0) g/dl Hct (42-52) % MCV (80-94) fL MCH (27-31) pg MCHC (31-36) g/dl RDW (10.5-15) % Plt Count (150-450) 10^3/ul MPV (7.4-10.4) um3 Neut % (Auto) (38-83) % Lymph % (Auto) (25-47) % [place] % (Auto) (1-9) % Eos % (Auto) (0-6) % Baso % (Auto) (0-2) % Absolute Neuts (auto) (1.5-7.7) 10^3/ul Absolute Lymphs (auto) (1.0-4.8) 10^3/ul Absolute Monos (auto) (0-0.8) 10^3/ul Absolute Eos (auto) (0-0.6) 10^3/ul Absolute Basos (auto) (0-0.2) 10^3/ul Absolute Nucleated RBC 10^3/ul Nucleated RBC % INR (Anticoag Therapy) (0.89-1.11) APTT (26.0-36.3) seconds Sodium (133-145) mmol/L Potassium (3.5-5.0) mmol/L Chloride (101-111) mmol/L Carbon Dioxide (22-32) mmol/L Anion Gap (2-11) mmol/L BUN (6-24) mg/dL Creatinine (0.67-1.17) mg/dL Est GFR ( Amer) (>60) Est GFR (Non-Af Amer) (>60) BUN/Creatinine Ratio (8-20) Glucose (70-100) mg/dL Lactic Acid 0.8 (0.5-2.0) mmol/L Calcium (8.6-10.3) mg/dL Magnesium (1.9-2.7) mg/dL Total Bilirubin (0.2-1.0) mg/dL AST (13-39) U/L ALT (7-52) U/L Alkaline Phosphatase (34-104) U/L Total Creatine Kinase (10-223) U/L Troponin I (<0.04) ng/mL B-Natriuretic Peptide 91 ( - 100) pg/mL Total Protein (6.4-8.9) g/dL Albumin (3.2-5.2) g/dL Globulin (2-4) g/dL Albumin/Globulin Ratio (1-3) TSH (0.34-5.60) mcIU/mL Assess/Plan/Problems-Billing Assessment: - Patient Problems (1) PAF (paroxysmal atrial fibrillation) Current Visit: Yes Status: Acute Code(s): I48.0 - PAROXYSMAL ATRIAL FIBRILLATION SNOMED Code(s): 716727435 Comment: COntinue warfarin. I discussed bleeding risk, interactions with meds, need to avoid extra ASA or any other NSAID. Continue metoprolol 50 mg bid and lisinopril 10 mg daily. Discharge now. INR in 2 days. Fup Azalea Angel. (2) CAD (coronary artery disease) Current Visit: No Status: Chronic Priority: Medium Code(s): I25.10 - ATHSCL HEART DISEASE OF [place] CORONARY ARTERY W/O ANG PCTRS SNOMED Code(s): 40234874 Comment: Continue ASA, statin, BB. (3) HTN (hypertension) Current Visit: No Status: Chronic Priority: High Code(s): I10 - ESSENTIAL (PRIMARY) HYPERTENSION SNOMED Code(s): 97699719 Comment: Rx for new doses metoprolol and lisinopril given to pt to bring to [place], also fax'd to [facility]. (4) GERD (gastroesophageal reflux disease) Current Visit: Yes Status: Acute Code(s): K21.9 - GASTRO-ESOPHAGEAL REFLUX DISEASE WITHOUT ESOPHAGITIS SNOMED Code(s): 397271017 Comment: Continue omeprazole. Status and Disposition: Discharge now. Fup Azalea Angel.
--- NOTE | 2016-11-28 14:59 | PN ---
Progress Note - Progress Note Date of Service: 11/28/16 Note: In vew of temp 102.1 today and patient's malaise, weakness, and back pain, will cancel discharge and start FUO wup. I note procalcitonin today wnl.
[2016-11-28] MEDS: Warfarin TAB(*) 5 MG PO SCH (17:10)
[2016-11-28] MEDS: Ibuprofen TAB* 400 MG PO PRN (23:16)
[2016-11-29 06:01] LABS: Hematocrit 40 % (42-52); Hemoglobin 14.1 g/dl (14.0-18.0); Mean Corpuscular HGB Conc 35 g/dl (31-36); Mean Corpuscular Hemoglobin 31 pg (27-31); Mean Corpuscular Volume 89 fL (80-94); Mean Platelet Volume 8 um3 (7.4-10.4); Red Blood Count 4.53 10^6/ul (4.0-5.4); Red Cell Distribution Width 13 % (10.5-15); White Blood Count 6.9 10^3/ul (3.5-10.8)
[2016-11-29 06:54] LABS: Erythrocyte Sed Rate 23 mm/Hr (0-40)
[2016-11-29] MEDS: traMADol TAB* 50 MG PO PRN (08:47)
[2016-11-29] MEDS: Lisinopril TAB* 10 MG PO SCH (08:47)
[2016-11-29] MEDS: Metoprolol Tartrate TAB* 50 mg PO SCH ×2 (08:48→22:57)
[2016-11-29] MEDS: Potassium Chlor TAB* 10 MEQ TAB.ER PO SCH (08:48)
[2016-11-29] MEDS: Multivitamins/Minerals TAB PO SCH (08:48)
[2016-11-29] MEDS: Aspirin EC Low Dose* 81 MG TAB.EC PO SCH (08:48)
[2016-11-29] MEDS: Hydrochlorothiazide TAB* 25 MG PO SCH (08:48)
[2016-11-29] MEDS: Acetaminophen TAB* 325 MG PO PRN ×3 (08:48→22:57)
[2016-11-29] MEDS: Omeprazole CAP* 20 MG PO SCH (08:48)
[2016-11-29] MEDS: Atorvastatin* 20 MG TAB PO SCH (08:48)
--- NOTE | 2016-11-29 11:05 | PN ---
Subjective Date of Service: 11/29/16 Interval History: No subj change. Back pain about the same, bothers him when he tries to get OOB. Objective Active Medications: Acetaminophen (Tylenol Tab*) 650 mg PO Q4H PRN PRN Reason: FEVER,PAIN Last Admin: 11/29/16 08:48 Dose: 650 mg Aspirin (Aspirin Ec Low Dose*) 81 mg PO DAILY [facility] Last Admin: 11/29/16 08:48 Dose: 81 mg Atorvastatin Calcium (Lipitor*) 20 mg PO DAILY [facility] Last Admin: 11/29/16 08:48 Dose: 20 mg Hydrochlorothiazide (Hydrodiuril Tab*) 25 mg PO DAILY [facility] Last Admin: 11/29/16 08:48 Dose: 25 mg Ibuprofen (Motrin Tab*) 400 mg PO Q6H PRN PRN Reason: FEVER/PAIN Last Admin: 11/28/16 23:16 Dose: 400 mg Lisinopril (Prinivil Tab*) 10 mg PO DAILY [facility] Last Admin: 11/29/16 08:47 Dose: 10 mg Metoprolol Tartrate (Lopressor Tab*) 50 mg PO BID [facility] Last Admin: 11/29/16 08:48 Dose: 50 mg Multivitamins/Minerals (Theragran/Minerals Tab*) 1 tab PO DAILY [facility] Last Admin: 11/29/16 08:48 Dose: 1 tab Omeprazole (Prilosec Cap*) 20 mg PO DAILY [facility] Last Admin: 11/29/16 08:48 Dose: 20 mg Potassium Chloride (Klor Con Er Tab*) 10 meq PO DAILY [facility] Last Admin: 11/29/16 08:48 Dose: 10 meq Tramadol HCl (Ultram*) 50 mg PO Q8H PRN PRN Reason: PAIN Last Admin: 11/29/16 08:47 Dose: 50 mg Warfarin Sodium (Coumadin Tab(*)) 5 mg PO DAILY@1700 [facility] PRN Reason: Protocol Last Admin: 11/28/16 17:10 Dose: 5 mg Vital Signs 11/28/16 11/28/16 11/28/16 15:10 19:19 20:00 Temperature 100.6 F 99.8 F Pulse Rate 125 81 Respiratory 20 24 24 Rate Blood Pressure 117/64 115/50 (mmHg) O2 Sat by Pulse 94 97 Oximetry 11/29/16 11/29/16 11/29/16 00:09 00:13 03:47 Temperature 101.1 F 99.0 F Pulse Rate 77 78 57 Respiratory 16 16 16 Rate Blood Pressure 94/60 113/44 (mmHg) O2 Sat by Pulse 93 94 95 Oximetry 11/29/16 11/29/16 11/29/16 07:35 08:00 08:47 Temperature 101.0 F Pulse Rate 84 Respiratory 20 16 16 Rate Blood Pressure 130/54 (mmHg) O2 Sat by Pulse 97 Oximetry 11/29/16 11/29/16 10:02 10:47 Temperature 100.1 F Pulse Rate Respiratory 16 Rate Blood Pressure (mmHg) O2 Sat by Pulse Oximetry Oxygen Devices in Use Now: None Appearance: Alert, supine in bed. In fair spirits. Looks comfortable. Eyes: No Scleral Icterus Neck: NL Appearance and Movements; NL JVP, No Thyroid Enlargement, Masses Respiratory: Symmetrical Chest Expansion and Respiratory Effort, Clear to Auscultation, Clear to Percussion Cardiovascular: NL Sounds; No Murmurs; No JVD, RRR, No Edema Extremities: No Edema, No Clubbing, Cyanosis, - Skin: No Rash or Ulcers Neurological: Alert and Oriented x 3, NL Sensation Result Diagrams: 11/29/16 05:44 11/28/16 04:26 Additional Lab and Data: Lab Results 11/26/16 11/26/16 11/26/16 Range/Units 17:38 17:38 17:38 WBC 7.5 (3.5-10.8) 10^3/ul RBC 4.80 (4.0-5.4) 10^6/ul Hgb 14.3 (14.0-18.0) g/dl Hct 42 (42-52) % MCV 88 (80-94) fL MCH 30 (27-31) pg MCHC 34 (31-36) g/dl RDW 13 (10.5-15) % Plt Count 142 L (150-450) 10^3/ul MPV 8 (7.4-10.4) um3 Neut % (Auto) 80.4 (38-83) % Lymph % (Auto) 8.6 L (25-47) % [place] % (Auto) 10.6 H (1-9) % Eos % (Auto) 0.1 (0-6) % Baso % (Auto) 0.3 (0-2) % Absolute Neuts (auto) 6.0 (1.5-7.7) 10^3/ul Absolute Lymphs (auto) 0.6 L (1.0-4.8) 10^3/ul Absolute Monos (auto) 0.8 (0-0.8) 10^3/ul Absolute Eos (auto) 0 (0-0.6) 10^3/ul Absolute Basos (auto) 0 (0-0.2) 10^3/ul Absolute Nucleated RBC 0 10^3/ul Nucleated RBC % 0 INR (Anticoag Therapy) 1.14 H (0.89-1.11) APTT 29.9 (26.0-36.3) seconds Sodium 134 (133-145) mmol/L Potassium 3.5 (3.5-5.0) mmol/L Chloride 97 L (101-111) mmol/L Carbon Dioxide 29 (22-32) mmol/L Anion Gap 8 (2-11) mmol/L BUN 27 H (6-24) mg/dL Creatinine 1.01 (0.67-1.17) mg/dL Est GFR ( Amer) 90.1 (>60) Est GFR (Non-Af Amer) 70.0 (>60) BUN/Creatinine Ratio 26.7 H (8-20) Glucose 130 H (70-100) mg/dL Lactic Acid (0.5-2.0) mmol/L Calcium 8.9 (8.6-10.3) mg/dL Magnesium 1.7 L (1.9-2.7) mg/dL Total Bilirubin 1.30 H (0.2-1.0) mg/dL AST 18 (13-39) U/L ALT 16 (7-52) U/L Alkaline Phosphatase 53 (34-104) U/L Total Creatine Kinase 54 (10-223) U/L Troponin I 0.01 (<0.04) ng/mL B-Natriuretic Peptide ( - 100) pg/mL Total Protein 6.7 (6.4-8.9) g/dL Albumin 3.7 (3.2-5.2) g/dL Globulin 3.0 (2-4) g/dL Albumin/Globulin Ratio 1.2 (1-3) TSH 1.47 (0.34-5.60) mcIU/mL 06/23/17 06/23/17 Range/Units 17:38 17:38 WBC (3.5-10.8) 10^3/ul RBC (4.0-5.4) 10^6/ul Hgb (14.0-18.0) g/dl Hct (42-52) % MCV (80-94) fL MCH (27-31) pg MCHC (31-36) g/dl RDW (10.5-15) % Plt Count (150-450) 10^3/ul MPV (7.4-10.4) um3 Neut % (Auto) (38-83) % Lymph % (Auto) (25-47) % [place] % (Auto) (1-9) % Eos % (Auto) (0-6) % Baso % (Auto) (0-2) % Absolute Neuts (auto) (1.5-7.7) 10^3/ul Absolute Lymphs (auto) (1.0-4.8) 10^3/ul Absolute Monos (auto) (0-0.8) 10^3/ul Absolute Eos (auto) (0-0.6) 10^3/ul Absolute Basos (auto) (0-0.2) 10^3/ul Absolute Nucleated RBC 10^3/ul Nucleated RBC % INR (Anticoag Therapy) (0.89-1.11) APTT (26.0-36.3) seconds Sodium (133-145) mmol/L Potassium (3.5-5.0) mmol/L Chloride (101-111) mmol/L Carbon Dioxide (22-32) mmol/L Anion Gap (2-11) mmol/L BUN (6-24) mg/dL Creatinine (0.67-1.17) mg/dL Est GFR ( Amer) (>60) Est GFR (Non-Af Amer) (>60) BUN/Creatinine Ratio (8-20) Glucose (70-100) mg/dL Lactic Acid 0.8 (0.5-2.0) mmol/L Calcium (8.6-10.3) mg/dL Magnesium (1.9-2.7) mg/dL Total Bilirubin (0.2-1.0) mg/dL AST (13-39) U/L ALT (7-52) U/L Alkaline Phosphatase (34-104) U/L Total Creatine Kinase (10-223) U/L Troponin I (<0.04) ng/mL B-Natriuretic Peptide 91 ( - 100) pg/mL Total Protein (6.4-8.9) g/dL Albumin (3.2-5.2) g/dL Globulin (2-4) g/dL Albumin/Globulin Ratio (1-3) TSH (0.34-5.60) mcIU/mL Assess/Plan/Problems-Billing Assessment: - Patient Problems (1) PAF (paroxysmal atrial fibrillation) Current Visit: Yes Status: Acute Code(s): I48.0 - PAROXYSMAL ATRIAL FIBRILLATION SNOMED Code(s): 048666480 Comment: Continue warfarin. I discussed bleeding risk, interactions with meds, need to avoid extra ASA or any other NSAID. Continue metoprolol 50 mg bid and lisinopril 10 mg daily. INR 6/27. (2) CAD (coronary artery disease) Current Visit: No Status: Chronic Priority: Medium Code(s): I25.10 - ATHSCL HEART DISEASE OF [place] CORONARY ARTERY W/O ANG PCTRS SNOMED Code(s): 21817297 Comment: Continue ASA, statin, BB. (3) HTN (hypertension) Current Visit: No Status: Chronic Priority: High Code(s): I10 - ESSENTIAL (PRIMARY) HYPERTENSION SNOMED Code(s): 28332238 Comment: Rx for new doses metoprolol and lisinopril given to pt to bring to [place], also fax'd to [facility]. (4) GERD (gastroesophageal reflux disease) Current Visit: Yes Status: Acute Code(s): K21.9 - GASTRO-ESOPHAGEAL REFLUX DISEASE WITHOUT ESOPHAGITIS SNOMED Code(s): 448459573 Comment: Continue omeprazole. (5) Fever Current Visit: Yes Status: Acute Code(s): R50.9 - FEVER, UNSPECIFIED SNOMED Code(s): 995207295 Comment: Procalcitoin wnl. CRP 100+. JOSE ALFREDO, RF, tick-borne panel, Lyme serology pending. Dr. Li's consult appreciated. MRI spine pending. (6) Back pain Current Visit: Yes Status: Acute Code(s): M54.9 - DORSALGIA, UNSPECIFIED SNOMED Code(s): 382440521 Comment: MRI spine pending. Little relief with tramadol, with order oxycodone PRN. Status and Disposition: Discharge now. Fup Azalea Angel.
[2016-11-29] MEDS ORDERED: oxyCODONE TAB* 5 MG TAB PO PRN (11:09)
[2016-11-29 11:35] LABS: BUN/Creatinine Ratio 27.4 (8-20); Calcium 8.6 mg/dL (8.6-10.3); EGFR African American 85.2 (>60); EGFR Non-African American 66.2 (>60); Potassium 3.3 mmol/L (3.5-5.0)
--- NOTE | 2016-11-29 12:40 | CONS ---
CONSULTATION REPORT: DATE OF CONSULTATION: 11/29/16 REQUESTING PHYSICIAN: Jose A Mejia MD. CONSULTING SERVICE: Infectious Disease. REASON FOR CONSULTATION: Fever and back pain. IMPRESSION: 1. Daily fevers for the last three days that he has been here. He also endorses two to three weeks of malaise, decreased appetite and sweats. He has a CRP of 100. Blood cultures were negative at 24 hours. That makes an infective endocarditis or other intravascular infection less likely. His focal symptom, which has been persistent for two and a half weeks is low back pain, worse with movement. I do think spinal infection including vertebral osteo diskitis as a consideration. He is neurologically intact in the lower extremities, but he could also have a small epidural abscess as well. 2. New onset atrial fibrillation in the setting of coronary disease and valvular heart disease, could be due to underlying inflammatory disorder. RECOMMENDATIONS: MRI of the thoracic and lumbar spine with and without gadolinium. Will follow up his blood cultures, hold on antibiotics at this point. Pain control as you are doing. HISTORY OF PRESENT ILLNESS: This is an 86-year-old male with coronary disease admitted after an episode of syncope. He was having sweats, decreased appetite and malaise for two to three weeks and then about a week of low back pain that was worse with movement. He had not tried anything for the back pain. It did not feel like his usual back pain. He did not have any weakness or numbness in his legs and no trouble urinating or controlling his bowel movements. He woke up on the floor on the day of admission, unsure of what happened. Was found to have a heart rate and sinus rhythm in the 80s, when he came into the ER. 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 CT of the cervical spine was negative. He was found to be in atrial fibrillation later in the ER. His troponin has been negative. He has had fevers to 38.9 every few hours since he has been here. He has noted sweats when he has been febrile. White count was 7 on admission. Blood pressure has been stable. Blood cultures were sent yesterday and they are negative at 24 hours. Urinalysis showed trace ketones, no blood or leukocyte esterase. He has not been on antibiotics here. PAST MEDICAL HISTORY: 1. Coronary disease. History of angioplasty and stents in the LAD and right coronary artery. 2. Hyperlipidemia. 3. Hypertension. 4. Gastroesophageal reflux disease. 5. Gallstone. 6. Benign prostatic hypertrophy. 7. Chronic back pain. 8. Status post bilateral cataract surgery. 9. Status post cholecystectomy. MEDICATIONS: 1. Tylenol. 2. Aspirin. 3. Hydrochlorothiazide. 4. Ibuprofen as needed. 5. Lisinopril. 6. Metoprolol. 7. Multivitamin. 8. Omeprazole. 9. Warfarin. 10. Tramadol. ALLERGIES: No known drug allergies. FAMILY HISTORY: No recurrent infections. SOCIAL HISTORY: Lives in [place] with his significant other. He has no pets. He spends a lot of time outdoors. No travel. No sick contacts. REVIEW OF SYSTEMS: All negative, except as noted above. PHYSICAL EXAMINATION: Vital Signs: Temperature is 38.3, heart rate 80, respiratory rate 20, blood pressure 130/50, O2 sat 97% on room air. In general, he is awake, not in distress. Neurologic: He is oriented x3 and follows all commands. Sensation is intact to light touch in the lower extremities bilaterally. Strength is 5/5 in the quadriceps, tibialis anterior, and gastrocnemius bilaterally in the lower extremities and there is no lower extremity tenderness bilaterally. Neck is supple without nuchal rigidity. Lymph Nodes: There is no cervical, supraclavicular, inguinal, axillary or epitrochlear lymphadenopathy. Heart has regular rate and rhythm without murmurs , rubs or gallops. Cardiovascular: He has bounding radial pulses bilaterally. Lungs: Clear to auscultation bilaterally. Abdomen: Soft, nontender, nondistended. There are bowel sounds present. Skin: There is no rash or splinter hemorrhages. Musculoskeletal: There is lumbar spine tenderness to palpation. There is no joint synovitis. A logroll is negative bilaterally. LABORATORY DATA: Creatinine is 1. CRP is 100. White blood cell count is 7, hemoglobin 14, platelets 127. A TSH was 1.4. Please see impressions and recommendations as outlined above, which I have discussed with Dr. Mejia. Thank you for asking me to see Mr. Campbell in consultation. [id number]/[facility] #: [id number] MTDD
--- NOTE | 2016-11-29 13:56 | ECHO ---
Patient: NATAN ALDRICH [facility] Rec#: [id number] : 1930 Date: 11/29/2016 Age: 86y Height: 172.72 cm / 68.0 in Weight: 77.11 kg / 170.0 lbs Sex: M BSA: 1.91 Room#: 439 Admit Date#: 11/28/2016 Type: Inpatient Referring: Alfred Mejia MD Reading: Odell Ritchie MD Rope Maker: Anca BurtJAMES CC: Esvin Tristan MD Transthoracic Echocardiogram Indication: Fever BP: 130/54 HR: 75 Rhythm: NSR with PACs Indications Fever Findings History: CAD, HTN, HLD, valvular disease. Technical Comments: The study quality is fair. Completed at 1300. Left Ventricle: The left ventricular chamber size is normal. There is no left ventricular hypertrophy. Global left ventricular wall motion and contractility are within normal limits. Left ventricular systolic function is at the lower limits of normal. The estimated ejection fraction is 50-55%. There is no consistent Doppler evidence of clinically significant diastolic dysfunction. Left Atrium: The left atrium is severely dilated. Right Ventricle: Moderator Band present. The right ventricular cavity size is normal. The right ventricular global systolic function is normal. Right Atrium: The right atrium is mildly dilated. Aortic Valve: The aortic valve is trileaflet. The aortic valve leaflets are mildly thickened. There is evidence of aortic sclerosis without stenosis. There is mild to moderate aortic regurgitation. There is no evidence of aortic stenosis. Mitral Valve: The mitral valve leaflets are mildly thickened. There is trace to mild mitral regurgitation. There is no evidence of mitral stenosis. Tricuspid Valve: The tricuspid valve leaflets are normal. There is moderate tricuspid regurgitation. There is evidence of moderate pulmonary hypertension. There is no tricuspid stenosis. Pulmonic Valve: The pulmonic valve appears normal. There is mild to moderate pulmonic regurgitation. There is no pulmonic stenosis. Pericardium: There is no significant pericardial effusion. A pericardial fat pad is visualized. Aorta: There is mild dilatation of the ascending aorta. There is no dilatation of the aortic arch. There is no dilation of the aortic root. Pulmonary Artery: The main pulmonary artery appears normal. Venous: The inferior vena cava is dilated. There is a greater than 50% respiratory change in the inferior vena cava dimension. Summary: There are no significant changes when compared to the previous study done on 08/12/14 Conclusions Global left ventricular wall motion and contractility are within normal limits. Left ventricular systolic function is at the lower limits of normal. The estimated ejection fraction is 50-55%. The right ventricular global systolic function is normal. There is mild to moderate aortic regurgitation. There is no evidence of aortic stenosis. There is trace to mild mitral regurgitation. There is moderate tricuspid regurgitation. There is evidence of moderate pulmonary hypertension. There is no significant pericardial effusion. There are no significant changes when compared to the previous study done on 08/12/14 Measurements Name Value Normal Range RVIDd (AP) 2D 2.6 cm (0.9 - 2.6) RVDdMajor (2D) 3.6 cm (2.2 - 4.4) RAd ISD 4CH 4.9 cm (3.4 - 4.9) RA (A4C)W 4.8 cm (2.9 - 4.6) IVSd (2D) 0.7 cm (0.6 - 1) LVPWd (2D) 0.9 cm (0.6 - 1) LVIDd (2D) 4 cm (3.6 - 5.4) LVIDs (2D) 2.7 cm - LV FS (2D) 32 % (25 - 45) Aortic Annulus 1.9 cm (1.4 - 2.6) Ao root diameter (2D) 3.4 cm (2.1 - 3.5) Ascending Ao 3.8 cm (2.1 - 3.4) Aortic arch 3.15 cm (1.8 - 3.4) LA dimension (AP) 2D 3.8 cm (2.3 - 3.8) LAd ISD 4CH 6 cm (2.9 - 5.3) LA ISD 4CH W 4.1 cm (2.5 - 4.5) Name Value Normal Range LA ESV SP 4CH (A/L) 120 ml - LA ESV SP 2CH (A/L) 74 ml - LA ESV BP (A/L) 95 ml - LA ESV BP (A/L) index 49.93 ml/m2 - LA ESV SP 4CH (MOD) 109 ml - LA ESV SP 2CH (MOD) 70 ml - Name Value Normal Range MV E-wave Vmax 0.75 m/sec - MV deceleration time 226.33 msec - MV A-wave Vmax 0.97 m/sec - MV E:A ratio 0.77 ratio - LV septal e' Vmax 0.1 m/sec - LV lateral e' Vmax 0.06 m/sec - LV E:e' septal ratio 7.5 ratio - LV E:e' lateral ratio 12.5 ratio - Name Value Normal Range AV Vmax 1.8 m/sec - AV VTI 37.5 cm - AV peak gradient 12.57 mmHg - AV mean gradient 7.51 mmHg - LVOT diameter 2 cm - LVOT Vmax 1.1 m/sec - LVOT VTI 21.3 cm - LVOT peak gradient 5.18 mmHg - LVOT mean gradient 2.9 mmHg - AR PHT 300.39 msec - AR peak gradient 55.4 mmHg - BIGG Vmax 0.62 m/sec - Name Value Normal Range TR Vmax 3.1 m/sec - TR peak gradient 38 mmHg - RAP 8 mmHg - RVSP 46 mmHg - IVC diameter 2.1 cm - Name Value Normal Range PV Vmax 0.9 m/sec - PV peak gradient 3.41 mmHg - AK end-diastolic Vmax 1.26 m/sec -
[2016-11-29] MEDS: Warfarin TAB(*) 5 MG PO SCH (15:49)
[2016-11-29] MEDS: Ibuprofen TAB* 400 MG PO PRN (17:50)
--- NOTE | 2016-11-29 21:26 | RAD ---
INDICATION: Screening for orbital foreign bodies prior to MRI. COMPARISON: No relevant prior exams available on the [facility] PACS for comparison. TECHNIQUE: AP and lateral views of the orbits were obtained. FINDINGS: No radiopaque foreign bodies are identified at the level of the orbits or visualized calvarium. Senile morphology mandible. Edentulous. IMPRESSION: No radiopaque orbital foreign bodies evident.
[2016-11-29] MEDS ORDERED: Gadoteridol* (CONTRAST) 279.3 MG/ML 10 ML IV ONE (21:38)
--- NOTE | 2016-11-29 22:48 | RAD ---
Indication: Back pain with fever for 3 days. Presented with syncopal episode and acute onset headache. Assess for spinal infection. Comparison: August 11, 2014 CT angiogram chest with sagittal reformatted images of the thoracic spine. Technique: Seva Searcha 1.5 Breanna [id number] with GEM suite. Noncontrast and contrast-enhanced MRI thoracic spine. 15 mL ProHance administered IV. Report: The thoracic spinal cord is normal in morphology and patterns of signal intensity. Negative syringohydromyelia. Negative for abnormal intra or extra-axial enhancement. No epidural fluid collection or lesion evident. Bone marrow signal is normal throughout. Negative for abnormal osseous enhancement. Negative for T2 hyperintense edema or abnormal enhancement at the disc spaces. Negative for fracture or spondylolysis at any level. Normal vertebral alignment accounting for exam positioning without spondylolisthesis or subluxation at any level. Small Schmorl node endplate herniations noted without concern. At T10-T11 there is moderate disc space narrowing and mild annular disc bulge without significant resulting acquired spinal stenosis. At T12-L1 there is a small LEFT paracentral to RIGHT foraminal disc protrusion without significant resulting acquired spinal stenosis. IMPRESSION: No evidence for osteomyelitis discitis of the thoracic spine. No inflammatory process evident throughout the [id number].
--- NOTE | 2016-11-29 23:16 | RAD ---
Indication: Back pain and fever for 3 days. Presented with syncopal episode. Acute onset headache. History of chronic low back pain. Assess for infection. Comparison: November 27, 2016 radiographs. Technique: NudgeRxa 1.5 Breanna [id number] with GEM suite. Noncontrast MRI lumbar sacral spine. The patient refused administration of contrast for the lumbar sacral spine exam due to poor tolerance for MRI examination secondary to magnitude of back pain. Report: Unremarkable conus medullaris and cauda equina. Bone marrow signal is normal throughout. Negative for fracture or spondylolysis at any level. Normal vertebral alignment accounting for exam positioning without spondylolisthesis or subluxation at any level. Multilevel mild Schmorl node endplate herniations. T12-L1: Posterior central to RIGHT foraminal mild disc protrusion with only mild resulting impression on the RIGHT anterior margin of the thecal sac. Along with facet joint osteoarthritis this results in mild RIGHT foraminal stenosis. L1-L2: RIGHT subarticular to foraminal mild disc protrusion and vertebral endplate osteophytosis which results in mild RIGHT foraminal stenosis. L2-L3: Bilateral subarticular to foraminal mild disc protrusions and vertebral endplate osteophytosis with resulting mild acquired foraminal stenosis. L3-L4: Severe RIGHT and less marked LEFT facet joint osteoarthritis with resulting mild bilateral foraminal stenosis. Mild alteration in the shape of the thecal sac without significant resulting central canal stenosis. L4-L5: Moderately severe bilateral facet joint osteoarthritis which along with mild vertebral endplate osteophytosis results in moderate LEFT foraminal stenosis. Only slight RIGHT foraminal stenosis. L5-S1: Severe disc space narrowing. Mild annular disc bulge with mild resulting impression on the ventral margin of the thecal sac. Degenerative spondylosis and mild facet joint osteoarthritis results in mild RIGHT and moderate LEFT foraminal stenosis. No epidural or paravertebral inflammatory process evident within limits of noncontrast examination. The inferior vena cava is partially decompressed indicating lower volume state. IMPRESSION: 1. While sensitivity is decreased without IV contrast there is no compelling evidence for osteomyelitis discitis of the lumbar sacral spine. The patient refused IV contrast administration for the lumbar spine exam due to magnitude of pain/discomfort during the examination. 2. 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 3. Partially decompressed IVC indicating lower volume state.
[2016-11-30 06:16] LABS: Hematocrit 38 % (42-52); Hemoglobin 13.4 g/dl (14.0-18.0); Mean Corpuscular HGB Conc 35 g/dl (31-36); Mean Corpuscular Hemoglobin 31 pg (27-31); Mean Corpuscular Volume 88 fL (80-94); Mean Platelet Volume 9 um3 (7.4-10.4); Red Blood Count 4.35 10^6/ul (4.0-5.4); Red Cell Distribution Width 13 % (10.5-15); White Blood Count 8.6 10^3/ul (3.5-10.8)
[2016-11-30] MEDS: Omeprazole CAP* 20 MG PO SCH (08:11)
[2016-11-30] MEDS: Atorvastatin* 20 MG TAB PO SCH (08:11)
[2016-11-30] MEDS: Potassium Chlor TAB* 10 MEQ TAB.ER PO SCH (08:11)
[2016-11-30] MEDS: Aspirin EC Low Dose* 81 MG TAB.EC PO SCH (08:11)
[2016-11-30] MEDS: Lisinopril TAB* 10 MG PO SCH (08:12)
[2016-11-30] MEDS: Multivitamins/Minerals TAB PO SCH (08:12)
[2016-11-30] MEDS: Metoprolol Tartrate TAB* 50 mg PO SCH ×2 (08:12→20:56)
[2016-11-30] MEDS: Hydrochlorothiazide TAB* 25 MG PO SCH (08:12)
[2016-11-30 12:11] LABS: Rheumatoid Factor <15 IU/mL (<15)
--- NOTE | 2016-11-30 12:26 | PN ---
Subjective Date of Service: 11/30/16 Interval History: No new c/o. Still has back pain. Walked to once so far today. Objective Active Medications: Acetaminophen (Tylenol Tab*) 650 mg PO Q4H PRN PRN Reason: FEVER,PAIN Last Admin: 11/29/16 22:57 Dose: 650 mg Aspirin (Aspirin Ec Low Dose*) 81 mg PO DAILY [facility] Last Admin: 11/30/16 08:11 Dose: 81 mg Atorvastatin Calcium (Lipitor*) 20 mg PO DAILY [facility] Last Admin: 11/30/16 08:11 Dose: 20 mg Ibuprofen (Motrin Tab*) 400 mg PO Q6H PRN PRN Reason: FEVER/PAIN Last Admin: 11/29/16 17:50 Dose: 400 mg Lisinopril (Prinivil Tab*) 10 mg PO DAILY [facility] Last Admin: 11/30/16 08:12 Dose: 10 mg Metoprolol Tartrate (Lopressor Tab*) 50 mg PO BID [facility] Last Admin: 11/30/16 08:12 Dose: 50 mg Multivitamins/Minerals (Theragran/Minerals Tab*) 1 tab PO DAILY [facility] Last Admin: 11/30/16 08:12 Dose: 1 tab Omeprazole (Prilosec Cap*) 20 mg PO DAILY [facility] Last Admin: 11/30/16 08:11 Dose: 20 mg Oxycodone HCl (Roxycodone Tab*) 5 mg PO Q4H PRN PRN Reason: PAIN Potassium Chloride (Klor Con Er Tab*) 10 meq PO DAILY [facility] Last Admin: 11/30/16 08:11 Dose: 10 meq Vital Signs 11/29/16 11/29/16 11/29/16 15:26 17:47 19:32 Temperature 103.0 F 101 F 99.0 F Pulse Rate 90 79 Respiratory 24 20 Rate Blood Pressure 133/60 109/47 (mmHg) O2 Sat by Pulse 94 93 Oximetry 11/29/16 11/30/16 11/30/16 20:00 00:24 00:56 Temperature 98.5 F Pulse Rate 59 Respiratory 18 16 Rate Blood Pressure 89/49 104/51 (mmHg) O2 Sat by Pulse 92 Oximetry 11/30/16 11/30/16 11/30/16 04:39 07:11 08:00 Temperature 98.4 F 98.0 F Pulse Rate 67 68 Respiratory 16 16 16 Rate Blood Pressure 105/50 116/69 (mmHg) O2 Sat by Pulse 91 93 Oximetry Oxygen Devices in Use Now: None Appearance: Alert, supine in bed. In fair spirits. Looks comfortable at rest. Eyes: No Scleral Icterus Neck: NL Appearance and Movements; NL JVP, No Thyroid Enlargement, Masses Respiratory: Symmetrical Chest Expansion and Respiratory Effort, Clear to Auscultation, Clear to Percussion Cardiovascular: NL Sounds; No Murmurs; No JVD, No Edema, - - frequent premature beats Extremities: No Edema, No Clubbing, Cyanosis, - Skin: No Rash or Ulcers, No Nodules or Sclerosis, - Neurological: Alert and Oriented x 3, NL Sensation Result Diagrams: 11/30/16 05:35 11/29/16 11:07 Additional Lab and Data: Lab Results 11/26/16 11/26/16 11/26/16 Range/Units 17:38 17:38 17:38 WBC 7.5 (3.5-10.8) 10^3/ul RBC 4.80 (4.0-5.4) 10^6/ul Hgb 14.3 (14.0-18.0) g/dl Hct 42 (42-52) % MCV 88 (80-94) fL MCH 30 (27-31) pg MCHC 34 (31-36) g/dl RDW 13 (10.5-15) % Plt Count 142 L (150-450) 10^3/ul MPV 8 (7.4-10.4) um3 Neut % (Auto) 80.4 (38-83) % Lymph % (Auto) 8.6 L (25-47) % [place] % (Auto) 10.6 H (1-9) % Eos % (Auto) 0.1 (0-6) % Baso % (Auto) 0.3 (0-2) % Absolute Neuts (auto) 6.0 (1.5-7.7) 10^3/ul Absolute Lymphs (auto) 0.6 L (1.0-4.8) 10^3/ul Absolute Monos (auto) 0.8 (0-0.8) 10^3/ul Absolute Eos (auto) 0 (0-0.6) 10^3/ul Absolute Basos (auto) 0 (0-0.2) 10^3/ul Absolute Nucleated RBC 0 10^3/ul Nucleated RBC % 0 INR (Anticoag Therapy) 1.14 H (0.89-1.11) APTT 29.9 (26.0-36.3) seconds Sodium 134 (133-145) mmol/L Potassium 3.5 (3.5-5.0) mmol/L Chloride 97 L (101-111) mmol/L Carbon Dioxide 29 (22-32) mmol/L Anion Gap 8 (2-11) mmol/L BUN 27 H (6-24) mg/dL Creatinine 1.01 (0.67-1.17) mg/dL Est GFR ( Amer) 90.1 (>60) Est GFR (Non-Af Amer) 70.0 (>60) BUN/Creatinine Ratio 26.7 H (8-20) Glucose 130 H (70-100) mg/dL Lactic Acid (0.5-2.0) mmol/L Calcium 8.9 (8.6-10.3) mg/dL Magnesium 1.7 L (1.9-2.7) mg/dL Total Bilirubin 1.30 H (0.2-1.0) mg/dL AST 18 (13-39) U/L ALT 16 (7-52) U/L Alkaline Phosphatase 53 (34-104) U/L Total Creatine Kinase 54 (10-223) U/L Troponin I 0.01 (<0.04) ng/mL B-Natriuretic Peptide ( - 100) pg/mL Total Protein 6.7 (6.4-8.9) g/dL Albumin 3.7 (3.2-5.2) g/dL Globulin 3.0 (2-4) g/dL Albumin/Globulin Ratio 1.2 (1-3) TSH 1.47 (0.34-5.60) mcIU/mL 11/26/16 11/26/16 Range/Units 17:38 17:38 WBC (3.5-10.8) 10^3/ul RBC (4.0-5.4) 10^6/ul Hgb (14.0-18.0) g/dl Hct (42-52) % MCV (80-94) fL MCH (27-31) pg MCHC (31-36) g/dl RDW (10.5-15) % Plt Count (150-450) 10^3/ul MPV (7.4-10.4) um3 Neut % (Auto) (38-83) % Lymph % (Auto) (25-47) % [place] % (Auto) (1-9) % Eos % (Auto) (0-6) % Baso % (Auto) (0-2) % Absolute Neuts (auto) (1.5-7.7) 10^3/ul Absolute Lymphs (auto) (1.0-4.8) 10^3/ul Absolute Monos (auto) (0-0.8) 10^3/ul Absolute Eos (auto) (0-0.6) 10^3/ul Absolute Basos (auto) (0-0.2) 10^3/ul Absolute Nucleated RBC 10^3/ul Nucleated RBC % INR (Anticoag Therapy) (0.89-1.11) APTT (26.0-36.3) seconds Sodium (133-145) mmol/L Potassium (3.5-5.0) mmol/L Chloride (101-111) mmol/L Carbon Dioxide (22-32) mmol/L Anion Gap (2-11) mmol/L BUN (6-24) mg/dL Creatinine (0.67-1.17) mg/dL Est GFR ( Amer) (>60) Est GFR (Non-Af Amer) (>60) BUN/Creatinine Ratio (8-20) Glucose (70-100) mg/dL Lactic Acid 0.8 (0.5-2.0) mmol/L Calcium (8.6-10.3) mg/dL Magnesium (1.9-2.7) mg/dL Total Bilirubin (0.2-1.0) mg/dL AST (13-39) U/L ALT (7-52) U/L Alkaline Phosphatase (34-104) U/L Total Creatine Kinase (10-223) U/L Troponin I (<0.04) ng/mL B-Natriuretic Peptide 91 ( - 100) pg/mL Total Protein (6.4-8.9) g/dL Albumin (3.2-5.2) g/dL Globulin (2-4) g/dL Albumin/Globulin Ratio (1-3) TSH (0.34-5.60) mcIU/mL Assess/Plan/Problems-Billing Assessment: - Patient Problems (1) PAF (paroxysmal atrial fibrillation) Current Visit: Yes Status: Acute Code(s): I48.0 - PAROXYSMAL ATRIAL FIBRILLATION SNOMED Code(s): 382358739 Comment: Hold warfarin 11/30, repeat INR 12/01. Continue metoprolol 50 mg bid and lisinopril 10 mg daily. (2) CAD (coronary artery disease) Current Visit: No Status: Chronic Priority: Medium Code(s): I25.10 - ATHSCL HEART DISEASE OF [place] CORONARY ARTERY W/O ANG PCTRS SNOMED Code(s): 03286669 Comment: Continue ASA, statin, BB. (3) HTN (hypertension) Current Visit: No Status: Chronic Priority: High Code(s): I10 - ESSENTIAL (PRIMARY) HYPERTENSION SNOMED Code(s): 45026067 Comment: Rx for new doses metoprolol and lisinopril given to pt to bring to [place], also fax'd to [facility]. Stop thiazide, continue KCL for now. (4) GERD (gastroesophageal reflux disease) Current Visit: Yes Status: Acute Code(s): K21.9 - GASTRO-ESOPHAGEAL REFLUX DISEASE WITHOUT ESOPHAGITIS SNOMED Code(s): 211003671 Comment: Continue omeprazole. (5) Fever Current Visit: Yes Status: Acute Code(s): R50.9 - FEVER, UNSPECIFIED SNOMED Code(s): 449452532 Comment: Procalcitoin wnl. CRP 100+. JOSE ALFREDO, RF, tick-borne panel, Lyme serology pending. Dr. Li's consult appreciated. MRI spine pending. (6) Back pain Current Visit: Yes Status: Acute Code(s): M54.9 - DORSALGIA, UNSPECIFIED SNOMED Code(s): 706652525 Comment: MRI spine pending. Little relief with tramadol, with order oxycodone PRN. Status and Disposition: Discharge now. Fup Azalea Angel.
[2016-12-01 00:54] LABS: B. miyamotoi PCR, B Negative (Negative); Babesia divergens/MO-1 Negative (Negative); Babesia ducani Negative (Negative); Ehrlichia ewingii/canis Negative (Negative)
[2016-12-01] MEDS ORDERED: Lidocaine 2% JELLY* 6 ML JELLY TOPICAL ONE (01:02)
[2016-12-01] MEDS: Acetaminophen TAB* 325 MG PO PRN ×3 (01:17→20:20)
[2016-12-01 05:28] LABS: Hematocrit 39 % (42-52); Hemoglobin 13.8 g/dl (14.0-18.0); Mean Corpuscular HGB Conc 35 g/dl (31-36); Mean Corpuscular Hemoglobin 31 pg (27-31); Mean Corpuscular Volume 88 fL (80-94); Mean Platelet Volume 8 um3 (7.4-10.4); Red Blood Count 4.48 10^6/ul (4.0-5.4); Red Cell Distribution Width 13 % (10.5-15); White Blood Count 9.4 10^3/ul (3.5-10.8)
[2016-12-01] MEDS: Lisinopril TAB* 10 MG PO SCH (09:34)
[2016-12-01] MEDS: Atorvastatin* 20 MG TAB PO SCH (09:34)
[2016-12-01] MEDS: Multivitamins/Minerals TAB PO SCH (09:34)
[2016-12-01] MEDS: Omeprazole CAP* 20 MG PO SCH (09:34)
[2016-12-01] MEDS: Metoprolol Tartrate TAB* 50 mg PO SCH ×2 (09:35→20:12)
[2016-12-01] MEDS: Potassium Chlor TAB* 10 MEQ TAB.ER PO SCH (09:35)
[2016-12-01] MEDS: Aspirin EC Low Dose* 81 MG TAB.EC PO SCH (09:35)
--- NOTE | 2016-12-01 10:14 | PN ---
Progress Note - Progress Note Date of Service: 12/01/16 SOAP: Subjective: CC: fever HPI: 86 yo man with fever, sweats, low back pain admitted with syncope. Low back pain about the same, worse with movement. Neck pain today as well, most muscles feel achy. No rash or diarrhea. Objective: [] Vital Signs Temp 36.9 C 12/01/16 07:21 Pulse 73 12/01/16 07:21 Resp 16 12/01/16 07:21 BP 106/53 12/01/16 07:21 Pulse Ox 96 12/01/16 07:21 Intake & Output 11/30/16 12/01/16 12/01/16 18:59 06:59 18:59 Intake Total 810 100 Output Total 200 250 Balance 610 -150 Intake: Oral 810 100 Output: Urine 200 250 Other: Estimated Void Small Medium # Bowel Movements 1 0 Estimated Stool Amount Small # Voids 2 3 Gen:awake, no distress HEENT:PERRL, MMM Neck:supple no rigidity Heart:RRR no murmur Lungs:CTA BL Abd:+BS NTND soft Skin: on his left thigh there is a faint erythematous oval patch approx 4 cm MSK: no spine tenderness Laboratory Results - last 24 hr 11/29/16 11/29/16 11/29/16 05:44 05:44 11:07 WBC RBC Hgb Hct MCV MCH MCHC RDW Plt Count MPV Neut % (Auto) Lymph % (Auto) [place] % (Auto) Eos % (Auto) Baso % (Auto) Absolute Neuts (auto) Absolute Lymphs (auto) Absolute Monos (auto) Absolute Eos (auto) Absolute Basos (auto) Absolute Nucleated RBC Nucleated RBC % INR (Anticoag Therapy) Rheumatoid Factor <15 Anti-Nuclear Antibody 0.3 Anaplasma DNA (PCR) Negative B. divergens/MO-1 PCR Negative Babesia duncani DNA PCR Negative Babesia microti DNA PCR Negative Borrelia miyamotoi (PCR) Negative E.chaffeensis DNA (PCR) Negative E. ewingii/canis (PCR) Negative E. muris-like DNA (PCR) Negative Miscellaneous Test See comment 12/01/16 12/01/16 05:13 05:13 WBC 9.4 RBC 4.48 Hgb 13.8 L Hct 39 L MCV 88 MCH 31 MCHC 35 RDW 13 Plt Count 147 L MPV 8 Neut % (Auto) 79.7 Lymph % (Auto) 11.3 L [place] % (Auto) 7.6 Eos % (Auto) 0.9 Baso % (Auto) 0.5 Absolute Neuts (auto) 7.5 Absolute Lymphs (auto) 1.1 Absolute Monos (auto) 0.7 Absolute Eos (auto) 0.1 Absolute Basos (auto) 0 Absolute Nucleated RBC 0 Nucleated RBC % 0 INR (Anticoag Therapy) 4.59 H Rheumatoid Factor Anti-Nuclear Antibody Anaplasma DNA (PCR) B. divergens/MO-1 PCR Babesia duncani DNA PCR Babesia microti DNA PCR Borrelia miyamotoi (PCR) E.chaffeensis DNA (PCR) E. ewingii/canis (PCR) E. muris-like DNA (PCR) Miscellaneous Test MRI T and L spine no infection or inflammatory changes Telemetry: PVC's no bradycardia Assessment: 1. fever, small rash on left thigh, significant outdoor time, will treat emperically for Lyme 2. back pain with negative MRI 3. syncope Plan: 1. emperic doxycycline 100 mg po bid x10 days. Tyelnol. 25 minutes floor time >50% face to face in counseling with patient and daughter about empiric Lyme treatment, all questions answered.
[2016-12-01] MEDS: DOXYcycline CAP(*) 100 MG PO SCH ×2 (12:15→20:12)
--- NOTE | 2016-12-01 13:24 | PN ---
Subjective Date of Service: 12/01/16 Interval History: Pt feels well. Telem shows sinus arrhythmia. Did well with PT , but was noted to have OT needs. Need for rehab d/w pt and daughter. Daughter stated that pt lives alone in a mobile home Objective Active Medications: Acetaminophen (Tylenol Tab*) 650 mg PO Q4H PRN PRN Reason: FEVER,PAIN Last Admin: 12/01/16 01:17 Dose: 650 mg Aspirin (Aspirin Ec Low Dose*) 81 mg PO DAILY [facility] Last Admin: 12/01/16 09:35 Dose: 81 mg Atorvastatin Calcium (Lipitor*) 20 mg PO DAILY [facility] Last Admin: 12/01/16 09:34 Dose: 20 mg Doxycycline Hyclate (Vibramycin Cap(*)) 100 mg PO BID [facility] Last Admin: 12/01/16 12:15 Dose: 100 mg Ibuprofen (Motrin Tab*) 400 mg PO Q6H PRN PRN Reason: FEVER/PAIN Last Admin: 11/29/16 17:50 Dose: 400 mg Metoprolol Tartrate (Lopressor Tab*) 50 mg PO BID [facility] Last Admin: 12/01/16 09:35 Dose: 50 mg Multivitamins/Minerals (Theragran/Minerals Tab*) 1 tab PO DAILY [facility] Last Admin: 12/01/16 09:34 Dose: 1 tab Omeprazole (Prilosec Cap*) 20 mg PO DAILY [facility] Last Admin: 12/01/16 09:34 Dose: 20 mg Oxycodone HCl (Roxycodone Tab*) 5 mg PO Q4H PRN PRN Reason: PAIN Potassium Chloride (Klor Con Er Tab*) 10 meq PO DAILY [facility] Last Admin: 12/01/16 09:35 Dose: 10 meq Vital Signs 11/30/16 11/30/16 11/30/16 15:16 19:45 20:00 Temperature 99.6 F 99.2 F Pulse Rate 80 90 Respiratory 22 20 20 Rate Blood Pressure 139/61 (mmHg) O2 Sat by Pulse 95 93 Oximetry 12/01/16 12/01/16 12/01/16 00:30 04:19 07:21 Temperature 100.7 F 98.7 F 98.4 F Pulse Rate 77 70 73 Respiratory 16 16 16 Rate Blood Pressure 126/61 114/50 106/53 (mmHg) O2 Sat by Pulse 94 96 96 Oximetry 12/01/16 12/01/16 11:14 12:50 Temperature 98.5 F Pulse Rate 70 Respiratory 16 16 Rate Blood Pressure 111/48 (mmHg) O2 Sat by Pulse 96 Oximetry Oxygen Devices in Use Now: None Appearance: 86 yo M in nAD, AAOx3 Eyes: No Scleral Icterus, PERRLA Ears/Nose/Mouth/Throat: NL Teeth, Lips, Gums, Mucous Membranes Moist Neck: NL Appearance and Movements; NL JVP, Trachea Midline Respiratory: Symmetrical Chest Expansion and Respiratory Effort, Clear to Auscultation Cardiovascular: NL Sounds; No Murmurs; No JVD, - - irregular Lymphatic: No Cervical Adenopathy Extremities: No Edema, No Clubbing, Cyanosis Skin: No Nodules or Sclerosis, - - 4 cm area of erythema on left anterior thigh Neurological: Alert and Oriented x 3, NL Muscle Strength and Tone Result Diagrams: 12/01/16 05:13 11/29/16 11:07 Additional Lab and Data: Lab Results 11/26/16 11/26/16 11/26/16 Range/Units 17:38 17:38 17:38 WBC 7.5 (3.5-10.8) 10^3/ul RBC 4.80 (4.0-5.4) 10^6/ul Hgb 14.3 (14.0-18.0) g/dl Hct 42 (42-52) % MCV 88 (80-94) fL MCH 30 (27-31) pg MCHC 34 (31-36) g/dl RDW 13 (10.5-15) % Plt Count 142 L (150-450) 10^3/ul MPV 8 (7.4-10.4) um3 Neut % (Auto) 80.4 (38-83) % Lymph % (Auto) 8.6 L (25-47) % [place] % (Auto) 10.6 H (1-9) % Eos % (Auto) 0.1 (0-6) % Baso % (Auto) 0.3 (0-2) % Absolute Neuts (auto) 6.0 (1.5-7.7) 10^3/ul Absolute Lymphs (auto) 0.6 L (1.0-4.8) 10^3/ul Absolute Monos (auto) 0.8 (0-0.8) 10^3/ul Absolute Eos (auto) 0 (0-0.6) 10^3/ul Absolute Basos (auto) 0 (0-0.2) 10^3/ul Absolute Nucleated RBC 0 10^3/ul Nucleated RBC % 0 INR (Anticoag Therapy) 1.14 H (0.89-1.11) APTT 29.9 (26.0-36.3) seconds Sodium 134 (133-145) mmol/L Potassium 3.5 (3.5-5.0) mmol/L Chloride 97 L (101-111) mmol/L Carbon Dioxide 29 (22-32) mmol/L Anion Gap 8 (2-11) mmol/L BUN 27 H (6-24) mg/dL Creatinine 1.01 (0.67-1.17) mg/dL Est GFR ( Amer) 90.1 (>60) Est GFR (Non-Af Amer) 70.0 (>60) BUN/Creatinine Ratio 26.7 H (8-20) Glucose 130 H (70-100) mg/dL Lactic Acid (0.5-2.0) mmol/L Calcium 8.9 (8.6-10.3) mg/dL Magnesium 1.7 L (1.9-2.7) mg/dL Total Bilirubin 1.30 H (0.2-1.0) mg/dL AST 18 (13-39) U/L ALT 16 (7-52) U/L Alkaline Phosphatase 53 (34-104) U/L Total Creatine Kinase 54 (10-223) U/L Troponin I 0.01 (<0.04) ng/mL B-Natriuretic Peptide ( - 100) pg/mL Total Protein 6.7 (6.4-8.9) g/dL Albumin 3.7 (3.2-5.2) g/dL Globulin 3.0 (2-4) g/dL Albumin/Globulin Ratio 1.2 (1-3) TSH 1.47 (0.34-5.60) mcIU/mL 11/26/16 11/26/16 Range/Units 17:38 17:38 WBC (3.5-10.8) 10^3/ul RBC (4.0-5.4) 10^6/ul Hgb (14.0-18.0) g/dl Hct (42-52) % MCV (80-94) fL MCH (27-31) pg MCHC (31-36) g/dl RDW (10.5-15) % Plt Count (150-450) 10^3/ul MPV (7.4-10.4) um3 Neut % (Auto) (38-83) % Lymph % (Auto) (25-47) % [place] % (Auto) (1-9) % Eos % (Auto) (0-6) % Baso % (Auto) (0-2) % Absolute Neuts (auto) (1.5-7.7) 10^3/ul Absolute Lymphs (auto) (1.0-4.8) 10^3/ul Absolute Monos (auto) (0-0.8) 10^3/ul Absolute Eos (auto) (0-0.6) 10^3/ul Absolute Basos (auto) (0-0.2) 10^3/ul Absolute Nucleated RBC 10^3/ul Nucleated RBC % INR (Anticoag Therapy) (0.89-1.11) APTT (26.0-36.3) seconds Sodium (133-145) mmol/L Potassium (3.5-5.0) mmol/L Chloride (101-111) mmol/L Carbon Dioxide (22-32) mmol/L Anion Gap (2-11) mmol/L BUN (6-24) mg/dL Creatinine (0.67-1.17) mg/dL Est GFR ( Amer) (>60) Est GFR (Non-Af Amer) (>60) BUN/Creatinine Ratio (8-20) Glucose (70-100) mg/dL Lactic Acid 0.8 (0.5-2.0) mmol/L Calcium (8.6-10.3) mg/dL Magnesium (1.9-2.7) mg/dL Total Bilirubin (0.2-1.0) mg/dL AST (13-39) U/L ALT (7-52) U/L Alkaline Phosphatase (34-104) U/L Total Creatine Kinase (10-223) U/L Troponin I (<0.04) ng/mL B-Natriuretic Peptide 91 ( - 100) pg/mL Total Protein (6.4-8.9) g/dL Albumin (3.2-5.2) g/dL Globulin (2-4) g/dL Albumin/Globulin Ratio (1-3) TSH (0.34-5.60) mcIU/mL Assess/Plan/Problems-Billing Assessment: 86 yo M presented after a syncopal episode at home, noted to be in a. fib, also fevers, myalgias x several days - Patient Problems (1) Fever Comment: Procalcitoin wnl. CRP 100+. JOSE ALFREDO, RF neg. tick-borne panel neg, Lyme serology pending. Dr. Flor's consult appreciated. MRI spine shows DDD, but no infection today pt noted a patch of erythema on left thigh. As per d/w Dr. Flor , will tx empiricallly for Lyme (2) PAF (paroxysmal atrial fibrillation) Comment: Hold warfarin , repeat INR>4. Continue metoprolol 50 mg bid, due to SBP 's in 110, will hold ACEI (3) Back pain Comment: MRI spine shows DDD and acquires spinal stenosis. Lidocaine jelly ordered as per pt's request (4) HTN (hypertension) Comment: cont metoprolol Stop thiazide, ACEI, continue KCL for now. (5) DVT prophylaxis Comment: fully anticoagulated Status and Disposition: inpatient, awaiting STR, medically ready for discharge
[2016-12-01] MEDS ORDERED: Potassium Chlor TAB* 20 MEQ TAB.ER PO ONE (13:26)
[2016-12-01] MEDS: Lidocaine 2% JELLY* 30 GM TUBE TOPICAL PRN ×2 (15:00→20:13)
[2016-12-02] MEDS: Acetaminophen TAB* 325 MG PO PRN ×2 (00:21→11:49)
[2016-12-02] MEDS: Aspirin EC Low Dose* 81 MG TAB.EC PO SCH (09:18)
[2016-12-02] MEDS: Atorvastatin* 20 MG TAB PO SCH (09:18)
[2016-12-02] MEDS: Metoprolol Tartrate TAB* 50 mg PO SCH (09:18)
[2016-12-02] MEDS: Potassium Chlor TAB* 10 MEQ TAB.ER PO SCH (09:18)
[2016-12-02] MEDS: Multivitamins/Minerals TAB PO SCH (09:18)
[2016-12-02] MEDS: DOXYcycline CAP(*) 100 MG PO SCH (09:19)
[2016-12-02] MEDS: Omeprazole CAP* 20 MG PO SCH (09:19)
[2016-12-02 14:15] VITALS: BP 115/40
[2016-12-02] MEDS ORDERED: Warfarin TAB(*) 3 MG PO SCH (17:00)
--- NOTE | 2016-12-03 10:29 | DS ---
CC: Dr. Tristan; Dr. Li; [facility].* DISCHARGE SUMMARY: DATE OF ADMISSION: 11/26/16 DATE OF DISCHARGE AND TRANSFER TO [facility] FACILITY: 12/02/16 PRIMARY CARE PROVIDER: Dr. Tristan. DISCHARGE DIAGNOSES: 1. Febrile illness, most likely due to Lyme. 2. Syncopal episodes due to new diagnosis paroxysmal atrial fibrillation. SECONDARY DIAGNOSES: 1. History of coronary artery disease. 2. Hyperlipidemia. 3. Hypertension. 4. Gastroesophageal reflux disease. 5. Cholelithiasis. 6. Chronic back pain. 7. History of bilateral cataract surgery. 8. Cholecystectomy. 9. Cardiac stents placed into LAD and RCA in 2008. CONSULTATIONS DURING THE HOSPITAL STAY: Included Dr. Li from Infectious Diseases. LABORATORY DATA: Performed included tick-borne disease serology was negative and that includes negative anaplasma, negative B. divergens, negative Babesia duncani and Babesia microti, as well as Borrelia miyamotoi. Ehrlichia PCRs were also negative. Blood cultures were negative to date. Lyme serology is pending at the time of dictation. On 11/29/16; sodium of 132, potassium 3.3, chloride 97, carbon dioxide 28, BUN 29, creatinine 1.06. C-reactive protein was 104 documented on 11/29/16. Procalcitonin level was 0.2 documented on 11/28/16. TSH was within normal limits at 1.47 on 11/26/16. The patient's most recent INR was 3.98. The patient's INR was 3.9 on 11/30/16 and 4.5 on 12/01/16. The patient's Coumadin was held on 11/30/16 and prior to that the patient was taking 5 mg of Coumadin daily for 4 days. Coumadin is being restarted at the time of discharge at 3 mg daily with recommendations to have a next INR check tomorrow. Thoracic spine MRI obtained on 11/29/16. Impression: "No evidence of osteomyelitis or discitis of the thoracic spine. No inflammatory process evident throughout the field of view." Lumbar spine MRI. Impression: "While the sensitivity is decreased without IV contrast, there is no compelling evidence of osteomyelitis or discitis of the lumbosacral spine. The patient refused IV contrast administration to the lumbar spine due to magnitude of discomfort during the evaluation. Multilevel degenerative spondylosis with posterior element osteoarthritis with resulting multilevel foraminal stenosis associated level by level. Partially decompressed IVC indicated lower volume status." Cervical spine CT obtained on 11/26/16 showed "no acute findings. Minor age- related degenerative change." Chest x-ray obtained on 11/26/16. Impression: "No active disease." Transthoracic echocardiogram obtained on 11/29/16. Impression: "Global left ventricular wall motion and contractility within normal limits. Left ventricular systolic function is in the lower-limit of normal. The estimated ejection fraction is 50% to 55%. The right ventricular global systolic function is normal. There is mild to moderate aortic regurgitation. There is no evidence of aortic stenosis. There was trace to mild mitral regurgitation and moderate tricuspid regurgitation. There was evidence of moderate pulmonary hypertension and no significant pericardial effusion. There are no significant changes when compared to previous study from 08/12/14." HOSPITAL COURSE: Gene Cambpell is an 86-year-old male who lives alone with a history of coronary artery disease and hypertension, who presented to the hospital after an episode of syncope. He stated that he fainted in his trailer on the way to his bedroom. He lost consciousness and he was not sure how long he was unconscious. In addition to that the patient has been having problems with myalgias for the past several days as well as chills. The patient was noted to be in atrial fibrillation with rapid ventricular response on admission. That was controlled with increase in the dose of his beta-delbert. The patient was started on Coumadin and eventually he was noted to be in sinus arrhythmia for the remaining time of his hospital stay and converted spontaneously from atrial fibrillation. He is going to be anticoagulated with Coumadin at the time of discharge. Initially, he was placed on Coumadin at 5 mg daily for approximately 3 days and his INR xiomara up to 4.59 on 12/01/16. His Coumadin was held for the last 3 days of his hospital stay and is going to be restarted on the day of discharge at a lower dose at 3 mg. On 12/02/16, his INR was 3.98. The patient has had intermittent fevers throughout his hospital stay with its peak at 103 degrees on 11/29/16. Due to low procalcitonin levels and no leukocytosis, it was very difficult to evaluate this patient and the source of his fevers. The patient's erythrocyte sedimentation rate was also low at 26, but his C-reactive protein was over 100. Dr. Li saw the patient in consultation. Tick-borne diseases serology was obtained and was negative. The day prior to the patient's discharge, the patient developed a circular lesion on his left thigh, although it was not clear cut target lesion it was suspicious for such and he was empirically started on doxycycline. At this point, the patient was diagnosed with possible lyme by Dr. Li and recommended to take doxycycline for a total of 10 days after discharge. Please note that on the day of discharge, the patient has still had an episode of fever of 101 degrees and some myalgias, but since the was just started within the past 24 hours, it was acceptable. During this hospital stay, he was noted to have occupational therapy needs and due to that he lives alone and has history of recent syncope and that he is on need of anticoagulation, he was recommended for a short-term rehabilitation at [facility]. He is going to be transferred to [facility] on 12/02/16. At discharge, the patient is recommended to have an INR check tomorrow. The patient is recommended to follow up with the physician at [facility] within the next 3 days or so. There are no ambulation limitations. Please also note that due to the patient had been normotensive throughout his hospital stay, his fosinopril and hydrochlorothiazide was discontinued. PHYSICAL EXAMINATION: At the time of discharge temperature of 99.2, heart rate of 83 and regular, respiratory rate 16, oxygen saturation 93% on room air, blood pressure of 105/47. General: The patient is a very pleasant 86-year-old male who is in no acute distress. The patient is alert, awake, and oriented x3. HEENT: Head atraumatic and normocephalic. Eyes; pupils are equal, round, and reactive to light and accommodation. Oropharynx clear. Mucosa moist. Neck is supple. No JVD, no bruits bilaterally. Cardiovascular: Regular, rate, and rhythm. No murmur. Respiratory: Clear to auscultation bilaterally. Abdomen: Soft and nontender. Bowel sounds present in all 4 quadrants. Extremities: There is no edema. Pulses are +2 bilaterally. There is no clubbing or cyanosis. Skin: The patient has a circular lesion of erythema of approximately 5 cm on his anterior mid left thigh. There is no evidence of central sparing. Neuro Evaluation: Speech clear. Cranial nerves II through XII grossly intact. Motor strength is 5/5 bilaterally. Please note that this is a short summary of the patient's hospital stay, please refer to further medical records for details. Approximately 40 minutes was spent on the patient's discharge. [id number]/[facility] #: [id number] [facility] HOSPITALYohannes
[2016-12-05 11:58] LABS: Lyme Disease IgG Ab WB Negative (Negative)
== END 2016-12-02 15:30 | DRG 869 ==
LOC: ED 16:36 → MEDTELE 19:19 → OBSVTOIN 11-28 14:54
PROVIDERS: ADMIT Hospitalist; ATTEND Internal Medicine
DX: A69.20 Lyme disease, unspecified (principal); I27.2 Other secondary pulmonary hypertension; I48.0 Paroxysmal atrial fibrillation; R55 Syncope and collapse; E78.5 Hyperlipidemia, unspecified; I08.3 Combined rheumatic disorders of mitral, aortic and tricuspid valves; I10 Essential (primary) hypertension; I25.10 Atherosclerotic heart disease of native coronary artery without angina pectoris; G89.29 Other chronic pain; K21.9 Gastro-esophageal reflux disease without esophagitis; M54.9 Dorsalgia, unspecified; Z90.49 Acquired absence of other specified parts of digestive tract; Z95.5 Presence of coronary angioplasty implant and graft; Z98.42 Cataract extraction status, left eye; Z98.41 Cataract extraction status, right eye; M47.896 Other spondylosis, lumbar region; M48.06 Spinal stenosis, lumbar region; L98.8 Other specified disorders of the skin and subcutaneous tissue; Z79.01 Long term (current) use of anticoagulants; Z72.89 Other problems related to lifestyle; E78.00 Pure hypercholesterolemia, unspecified; N40.0 Benign prostatic hyperplasia without lower urinary tract symptoms; Z82.49 Family history of ischemic heart disease and other diseases of the circulatory system; Z82.3 Family history of stroke; Z87.891 Personal history of nicotine dependence; Z83.3 Family history of diabetes mellitus; Z80.8 Family history of malignant neoplasm of other organs or systems
CPT/HCPCS: 36415; 70030; 70450; 71010; 72100; 72125; 72148; 72157; 80048; 80053; 81003; 82550; 83605; 83735; 83880; 84145; 84443; 84484; 84520; 85025; 85610; 85652; 85730; 86038; 86140; 86431; 86617; 86618; 86666; 86753; 87040; 87798; 93005; 93306; A9270-GY; A9579; G0378; J1644

== ENCOUNTER 2019-06-23 17:25 | Emergency (ER) | payer MEDICARE, BC ==
--- NOTE | 2019-06-23 17:44 | ED ---
Abdominal Pain/Male - HPI Summary HPI Summary: 89-year-old male with a significant past medical history of atrial fibrillation on Coumadin, coronary artery disease, hyperlipidemia, hypertension, cholelithiasis status post cholecystectomy, cardiac stents placed into LAD and RCA in 2008 Presents to the emergency department today complaining of diffuse 4 out of 10 "bloating" abdominal pain which began this morning. Patient states he has had "on and off" constipation for 3 weeks and today woke with this abdominal pain, nausea, vomiting, diarrhea. Patient denies blood per rectum or dark stools. Patient believes he had a fever this morning. Patient otherwise feels well and denies chest pain, shortness breath, cough, rash, pain with urination. Patient denies recent alcohol use or recreational drug use. Social history and family history noncontributory. - History of Current Complaint Chief Complaint: EDAbdPain Stated Complaint: GENERAL ILLNESS PER EMS Time Seen by Provider: 06/23/19 17:32 Hx Obtained From: Patient, Family/Fitting Room Associate - daughter Onset/Duration: Gradual Onset Timing: Constant Severity Initially: Moderate Severity Currently: Moderate Pain Intensity: 5 Pain Scale Used: 0-10 Numeric Location: Diffuse Radiates: No Character: Cramping Alleviating Factor(s): Bowel Movement Associated Signs And Symptoms: Positive: Fever, Constipation, Nausea, Vomiting, Diarrhea. Negative: Cough, Chest Pain, Urinary Symptoms - Allergies/Home Medications Allergies/Adverse Reactions: Allergies Allergy/AdvReac Type Severity Reaction Status Date / Time No Known Allergies Allergy Verified 08/10/14 12:40 Home Medications: Home Medications Finasteride TAB* [Proscar TAB*] 5 mg PO DAILY 06/23/19 [History Confirmed ] Glucosam/Chondr/Collagn/Hyalur [Th Glucosamine/Chondroiti] 2 cap PO DAILY [History Confirmed 06/23/19] Hydrochlorothiazide TAB* [Hydrodiuril TAB*] 25 mg PO DAILY 06/23/19 [History Confirmed 06/23/19] Lisinopril TAB* [Prinivil TAB*] 10 mg PO DAILY 06/23/19 [History Confirmed 06/23] Potassium Chlor TAB* [Klor Con ER TAB*] 10 meq PO DAILY 06/23/19 [History Confirmed 06/23/19] Tamsulosin HCl 0.4 mg PO DAILY 06/23/19 [History Confirmed 06/23/19] Warfarin TAB(*) [Coumadin TAB(*)] 2 mg PO SEE INSTRUCTIONS 06/23/19 [History Confirmed 06/23/19] Warfarin TAB(*) [Coumadin TAB(*)] 3 mg PO SEE INSTRUCTIONS 06/23/19 [History Confirmed 06/23/19] PMH/Surg Hx/FS Hx/Imm Hx Endocrine/Hematology History: Denies: Hx Diabetes, Hx Thyroid Disease, Hx Anemia Cardiovascular History: Reports: Hx Coronary Artery Disease - 2 STENTS, Hx Hypercholesterolemia, Hx Hypertension, Hx Syncope - Admission Dx Denies: Hx Angina, Hx Atrial Fibrillation, Hx Myocardial Infarction, Hx Pacemaker/ICD, Hx Rheumatic Fever, Hx Valvular Heart Disease Respiratory History: Denies: Hx Asthma, Hx Chronic Obstructive Pulmonary Disease (COPD) GI History: Reports: Hx Gall Bladder Disease, Hx Gastroesophageal Reflux Disease , Hx Hiatal Hernia, Other GI Disorders - GALLSTONES History: Reports: Hx Benign Prostatic Hyperplasia Denies: Hx Dialysis, Hx Kidney Infection, Hx Kidney Stones, Hx Renal Disease Musculoskeletal History: Reports: Hx Back Problems - ruptured disc Denies: Hx Arthritis Sensory History: Reports: Hx Cataracts - surgery to both eyes, Hx Contacts or Glasses Denies: Hx Glaucoma, Hx Macular Degeneration, Hx Deafness, Hx Hearing Aid, Hx Hearing Problem Opthamlomology History: Reports: Hx Cataracts - surgery to both eyes, Hx Contacts or Glasses Denies: Hx Glaucoma, Hx Macular Degeneration Neurological History: Reports: Other Neuro Impairments/Disorders - 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 TOOTH EXTRACTIONS. CARDIAC STENTS--4-5 YEARS AGO-[place]. gallbladder removed 2013. ERCP-2013. cholecystectomy-02/2014 Hx Anesthesia Reactions: No Infectious Disease History: No Infectious Disease History: Denies: Traveled Outside the [place] in Last 30 Days - Family History Known Family History: Positive: Cardiac Disease, Other - Stroke - Social History Alcohol Use: Occasionally Alcohol Amount: 1 BEER Substance Use Type: Reports: None Smoking Status (MU): Former Smoker Amount Used/How Often: 1/2- 1 PPD X ? YEARS Have You Smoked in the Last Year: No Review of Systems Positive: Fever. Negative: Chills, Fatigue, Skin Diaphoresis, Other Eyes: Negative ENT: Negative Cardiovascular: Negative Respiratory: Negative Positive: Abdominal Pain, Vomiting, Diarrhea, Nausea Genitourinary: Negative Musculoskeletal: Negative Skin: Negative Neurological: Negative Psychological: Normal All Other Systems Reviewed And Are Negative: Yes Physical Exam - Summary Physical Exam Summary: Inspection of the abdomen reveals no ecchymosis or masses. Auscultation reveals normoactive bowel sounds. Palpation reveals diffuse 4 out of 10 abdominal pain with no guarding or rigidity, or peritoneal signs. Negative psoas, Rovsing, obturator, McBurney's, Bryant's sign. Triage Information Reviewed: Yes Vital Signs On Initial Exam: Initial Vitals Temp Pulse Resp BP Pulse Ox 98 F 119 20 140/94 92 06/23/19 17:35 06/23/19 17:35 06/23/19 17:35 06/23/19 17:35 06/23/19 17:35 Vital Signs Reviewed: Yes Appearance: Positive: Well-Appearing, No Pain Distress, Well-Nourished Skin: Positive: Warm, Skin Color Reflects Adequate Perfusion Eyes: Positive: EOMI, MARGIE ENT: Positive: Hearing grossly normal Respiratory/Lung Sounds: Positive: Clear to Auscultation, Breath Sounds Present Cardiovascular: Positive: IRR, S1, S2 Abdomen Description: Positive: Soft. Negative: Distended, Guarding, McBurney's Point Tenderness, Peritoneal Signs Bowel Sounds: Positive: Present Musculoskeletal: Positive: Strength/ROM Intact Neurological: Positive: Sensory/Motor Intact, Alert, Oriented to Person Place, Time, Normal Gait, Facial Symmetry, Speech Normal Psychiatric: Positive: Normal, Affect/Mood Appropriate AVPU Assessment: Alert Procedures - Sedation Patient Received Moderate/Deep Sedation with Procedure: No Diagnostics - Vital Signs Vital Signs Temp Pulse Resp BP Pulse Ox 06/23/19 17:35 98 F 119 20 140/94 92 - Laboratory Result Diagrams: 06/23/19 17:49 06/23/19 17:49 Lab Statement: Any lab studies that have been ordered have been reviewed, and results considered in the medical decision making process. Abdominal Pain Male Course/Dx - Course Course Of Treatment: Patient was evaluated in the emergency department today for abdominal pain. Patient seen and examined his vitals are stable and he is afebrile. The patient is mildly tachycardic with a heart rate of 119. Labs returned showing no leukocytosis with white blood cell count of 8.1. There is an elevated CRP at 12. 3. There is evidence of hyperglycemia at 171. Mild hypomagnesemia at 1.5. Patient given normal saline 2 L for dehydration and hyperglycemia as well as 2 g of magnesium sulfate for hypomagnesemia. CT abd/ pelvis W showed evidence of enteritis without obstruction, and diverticulosis without active diverticulitis. Pt is likely suffering from a viral gastroenteritis, and has secondary mild dehydration and hypomagnesemia. Pt discharged with outpatient followup. - Diagnoses Differential Diagnosis/HQI/PQRI: Appendicitis, Bowel Obstruction, Constipation, Gall Bladder Disease, Ischemic Bowel, Peptic Ulcer Disease, Urinary Tract Infection Provider Diagnoses: Gastroenteritis, Hypomagnesemia Discharge ED - Sign-Out/Discharge Documenting (check all that apply): Patient Departure - Discharge Plan Condition: Stable Disposition: HOME Patient Education Materials: Acute Abdominal Pain (ED) Referrals: Esvin Tristan MD [Primary Care Provider] - 5 Days Additional Instructions: You were seen in the emergency department today for abdominal pain. There is no evidence that your symptoms are due to a life-threatening or infectious process requiring intervention at this time. Please follow up with your primary care provider or courtesy car driver in 3 days for further evaluation and management of your symptoms. Please return to the emergency department immediately if you develop any new or worsening symptoms. - Billing Disposition and Condition Condition: STABLE Disposition: Home - Attestation Statements Provider Attestation: I was available for consult. This patient was seen by the [facility]. The patient was not presented to, seen by, or examined by me. Asher Quintana MD
[2019-06-23 18:08] LABS: ABS Lymphocytes 0.3 10^3/ul (1.0-4.8); ABS Monocytes 0.4 10^3/ul (0-0.8); ABS Neutrophils 7.3 10^3/ul (1.5-7.7); Eosinophil % 0.1 %; Hematocrit 47 % (42-52); Hemoglobin 16.7 g/dL (14.0-18.0); Lymphocyte % 4.1 %; Mean Corpuscular HGB Conc 36 g/dL (31-36); Mean Corpuscular Hemoglobin 33 pg (27-31); Mean Corpuscular Volume 92 fL (80-94); Mean Platelet Volume 7.9 fL (7.4-10.4); Nucleated Red Blood Cells % 0.1; Platelet Count 170 10^3/uL (150-450); Red Blood Count 5.12 10^6 /uL (4.18-5.48); Red Cell Distribution Width 13 % (10-15); White Blood Count 8.1 10^3/uL (3.5-10.8)
[2019-06-23 18:10] LABS: INR 2.69 (0.82-1.09)
[2019-06-23] MEDS ORDERED: NS 0.9% 1000 ML** 1,000 ML IV ONE ×2 (18:10→20:24)
[2019-06-23 18:23] LABS: Albumin 3.9 g/dL (3.2-5.2); Albumin/Globulin Ratio 1.4 (1-3); BUN/Creatinine Ratio 26.6 (8-20); C Reactive Protein 12.27 mg/L (<8.01); EGFR African American 66.4 (>60); EGFR Non-African American 54.9 (>60); Globulin 2.8 g/dL (2-4); Magnesium 1.5 mg/dL (1.9-2.7); Potassium 3.7 mmol/L (3.5-5.0); Total Bilirubin 1.4 mg/dL (0.2-1.0); Total Protein 6.7 g/dL (6.4-8.9)
[2019-06-23 18:24] LABS: Troponin I 0.01 ng/mL (<0.03)
[2019-06-23] MEDS ORDERED: Ondansetron INJ* 2 MG/ML VIAL IV ONE (18:29)
[2019-06-23 18:53] LABS: TSH (Thyroid Stimulating Horm) 2.99 mcIU/mL (0.34-5.60)
[2019-06-23] MEDS ORDERED: Iodixanol* (CONTRAST) 320 MG/ML 100 ML SDV IV ONE (19:40)
[2019-06-23] MEDS ORDERED: Magnesium Sulfate 2 GM IV* 2 GM/50 ML BAG IVPB ONE (20:24)
[2019-06-23 21:53] LABS: Urine Appearance Clear; Urine Bilirubin Negative (Negative); Urine Blood Negative (Negative); Urine Color Yellow; Urine Glucose Negative (Negative); Urine Ketones Negative (Negative); Urine Nitrite Negative (Negative); Urine Protein Negative (Negative); Urine Urobilinogen Negative (Negative)
[2019-06-23 22:51] VITALS: BP 110/69
== END 2019-06-23 23:00 | disposition home or self-care (01) ==
LOC: ED 17:25
DX: K52.9 Noninfective gastroenteritis and colitis, unspecified (principal); E83.42 Hypomagnesemia; R50.9 Fever, unspecified; K59.00 Constipation, unspecified; R11.2 Nausea with vomiting, unspecified; I25.10 Atherosclerotic heart disease of native coronary artery without angina pectoris; Z95.5 Presence of coronary angioplasty implant and graft; E78.00 Pure hypercholesterolemia, unspecified; I10 Essential (primary) hypertension; Z79.01 Long term (current) use of anticoagulants; Z79.899 Other long term (current) drug therapy
CPT/HCPCS: 36415; 74177; 80053; 81003; 83605; 83690; 83735; 83880; 84443; 84484; 85025; 85610; 86140; 96365; 99283; J2405; J3475; Q9967

== ENCOUNTER 2019-07-15 10:18 | Inpatient (IN) | payer MEDICARE, BC ==
[2019-07-15] MEDS ORDERED: NS 0.9% 1000 ML** 1,000 ML IV ONE (10:28)
--- NOTE | 2019-07-15 10:31 | ED ---
Syncope/Near Syncope - HPI Summary HPI Summary: 89 y/o male presented to [facility] after passing out at a diner [employer] while getting breakfast. According to family, patient spontaneously became shaky, had trouble breathing and became unresponsive. Family endorses diaphoretic skin, and the patient and family deny headache, blurry vision, nausea, vomiting, abdominal pain, and fever. Family notes the patient has been feeling weak the past couple of days, has had runny stool, and has low blood pressure this morning. He has had the stomach flu recently. Patient has a history of heart issues and takes his medication regularly, including this morning. - History Of Current Complaint Hx Obtained From: Patient, Family/Line Service Supervisor Onset/Duration: Sudden Onset, Resolved Context: Witnessed Activity At Onset: At Rest Aggravating Factor(s): Nothing Alleviating Factor(s): Nothing Associated Signs And Symptoms: Diaphoresis, Other - runny stool - Allergies/Home Medications Allergies/Adverse Reactions: Allergies Allergy/AdvReac Type Severity Reaction Status Date / Time No Known Allergies Allergy Verified 07/15/19 10:29 PMH/Surg Hx/FS Hx/Imm Hx Endocrine/Hematology History: Denies: Hx Diabetes, Hx Thyroid Disease, Hx Anemia Cardiovascular History: Reports: Hx Coronary Artery Disease - 2 STENTS, Hx Hypercholesterolemia, Hx Hypertension, Hx Syncope - Admission Dx Denies: Hx Angina, Hx Atrial Fibrillation, Hx Myocardial Infarction, Hx Pacemaker/ICD, Hx Rheumatic Fever, Hx Valvular Heart Disease Respiratory History: Denies: Hx Asthma, Hx Chronic Obstructive Pulmonary Disease (COPD) GI History: Reports: Hx Gall Bladder Disease, Hx Gastroesophageal Reflux Disease , Hx Hiatal Hernia, Other GI Disorders - GALLSTONES History: Reports: Hx Benign Prostatic Hyperplasia Denies: Hx Dialysis, Hx Kidney Infection, Hx Kidney Stones, Hx Renal Disease Musculoskeletal History: Reports: Hx Back Problems - ruptured disc Denies: Hx Arthritis Sensory History: Reports: Hx Cataracts - surgery to both eyes, Hx Contacts or Glasses Denies: Hx Glaucoma, Hx Macular Degeneration, Hx Deafness, Hx Hearing Aid, Hx Hearing Problem Opthamlomology History: Reports: Hx Cataracts - surgery to both eyes, Hx Contacts or Glasses Denies: Hx Glaucoma, Hx Macular Degeneration Neurological History: Reports: Other Neuro Impairments/Disorders - 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 TOOTH EXTRACTIONS. CARDIAC STENTS--4-5 YEARS AGO-[place]. gallbladder removed 2013. ERCP-2013. cholecystectomy-02/2014 Hx Anesthesia Reactions: No Infectious Disease History: No Infectious Disease History: Denies: Traveled Outside the [place] in Last 30 Days - Family History Known Family History: Positive: Cardiac Disease, Other - Stroke - Social History Alcohol Use: Occasionally Alcohol Amount: 1 BEER Substance Use Type: Reports: None Smoking Status (MU): Former Smoker Amount Used/How Often: 1/2- 1 PPD X ? YEARS Have You Smoked in the Last Year: No Review of Systems Positive: Skin Diaphoresis. Negative: Fever Negative: Blurred Vision Negative: Abdominal Pain, Vomiting, Nausea Negative: Headache All Other Systems Reviewed And Are Negative: Yes Physical Exam - Summary Physical Exam Summary: VITAL SIGNS: Reviewed. GENERAL: Patient is a well-developed and nourished male who is lying comfortable in the stretcher. Patient is not in any acute respiratory distress. HEAD AND FACE: No signs of trauma. No ecchymosis, hematomas or skull depressions. No sinus tenderness. EYES: PERRLA, EOMI x 2, No injected conjunctiva, no nystagmus. EARS: Hearing grossly intact. Ear canals and tympanic membranes are within normal limits. MOUTH: Oropharynx within normal limits. NECK: Supple, trachea is midline, no adenopathy, no JVD, no carotid bruit, no c- spine tenderness, neck with full ROM. CHEST: Symmetric, no tenderness at palpation. LUNGS: Clear to auscultation bilaterally. No wheezing or crackles. CVS: Regular rate and rhythm, S1 and S2 present, no murmurs or gallops appreciated. ABDOMEN: Soft, non-tender. No signs of distention. No rebound, no guarding, and no masses palpated. Bowel sounds are normal. EXTREMITIES: FROM in all major joints, no edema, no cyanosis or clubbing. NEURO: Alert and oriented x 3. No acute neurological deficits. Speech is normal and follows commands. SKIN: Dry and warm. GCS: 15. Triage Information Reviewed: Yes Vital Signs On Initial Exam: Initial Vitals Temp Pulse Resp BP Pulse Ox 97.8 F 54 16 114/61 95 07/15/19 10:27 07/15/19 10:27 07/15/19 10:27 07/15/19 10:27 07/15/19 10:27 Vital Signs Reviewed: Yes - [place] Coma Scale Best Eye Response: 4 - Spontaneous Best Motor Response: 6 - Obeys Commands Best Verbal Response: 5 - Oriented Coma Scale Total: 15 Procedures - Sedation Patient Received Moderate/Deep Sedation with Procedure: No Diagnostics - Vital Signs Vital Signs Temp Pulse Resp BP Pulse Ox 07/15/19 10:27 97.8 F 54 16 114/61 95 - Laboratory Result Diagrams: 07/15/19 10:55 07/15/19 10:55 Lab Statement: Any lab studies that have been ordered have been reviewed, and results considered in the medical decision making process. - Radiology cxr Radiology Interpretation Completed By: Radiologist Summary of Radiographic Findings: IMPRESSION: STABLE RIGHT LOWER LUNG ATELECTASIS. Thsi report was reviewed by the ED physician. - CT head CT Interpretation Completed By: Radiologist Summary of CT Findings: IMPRESSION: NO ACUTE INTRACRANIAL PATHOLOGY. DIFFUSE INVOLUTIONAL CHANGE WITH CHRONIC SMALL VESSEL ISCHEMIC CHANGES. This report was reviewed by the ED physician. - EKG 1040 Cardiac Rate: Bradycardia EKG Rhythm: Sinus Bradycardia Summary of EKG Findings: Sinus bradycardia at 49bpm. No ST elevations. No STEMI. This EKG was reviewed and interpreted by the ED physician. Course/Dx Assessment/Plan: 89 y/o male presented to [facility] after passing out at a diner [employer] while getting breakfast. According to family, the patient spontaneously became shaky, had trouble breathing and became unresponsive. Family endorses diaphoretic skin, and the patient and family deny headache, blurry vision, nausea, vomiting, abdominal pain, and fever. Family notes the patient has been feeling weak the past couple of days, has had runny stool, and has low blood pressure this morning. He has had the stomach flu recently. Patient has a history of heart issues and takes his medication regularly, including this morning. In the ED course the patient was placed in a steam oven operator, IV access was obtained, IV fluids started. Blood test w/o a significant abnormality except for potassium of 3.4, BUN of 34, glucose of 138, and ammonia of 61. Urinalysis show nitrates, 3+ WBCs, 2+ RBCs, appearing contaminated. EKG shows a sinus bradycardia without any ST elevation. Chest x-ray impression: Stable right lower lung atelectasis. Head CT impression: No acute interconnected pathology. Diffuse involutional changes with chronic a small distal ischemic changes. I discussed my physical exam and test results with Dr. Meraz from the hospitalist services, and she agrees to admit the patient to his services. The patient is hemodynamically stable alert and oriented x 3. - Diagnoses Differential Diagnosis/HQI/PQRI: Positive: Cerebral Vascular Accident, Coronary Artery Disease, Dysrhythmia, Metabolic Reaction, Myocardial Infarction, Seizure , Transient Ischemic Attack, Vasovagal Episode Provider Diagnoses: Syncope - Physician Notifications Discussed Care of Patient With: Madalyn Meraz Time Discussed With Above Provider: 11:51 Instructed by Provider To: Other - Patient's case was discussed with Dr. Meraz, who will admit the patient for syncope. Discharge ED - Sign-Out/Discharge Documenting (check all that apply): Patient Departure - admit - Discharge Plan Condition: Stable Disposition: ADMITTED TO [facility] - Billing Disposition and Condition Condition: STABLE Disposition: Admitted to [facility] - Attestation Statements Document Initiated by Scribe: Yes Documenting Scribe: Lora Perry Provider For Whom Beverly is Documenting (Include Credential): Josue Rodriguez MD Scribe Attestation: I, Lora Perry, scribed for Josue Rodriguez MD on at 2138. Scribe Documentation Reviewed: Yes Provider Attestation: The documentation as recorded by the scribe, Lora Perry accurately reflects the service I personally performed and the decisions made by me, Josue Rodriguez MD Status of Scribe Document: Viewed
[2019-07-15 11:02] LABS: ABS Eosinophils 0.1 10^3/ul (0-0.6); ABS Monocytes 0.8 10^3/ul (0-0.8); ABS Neutrophils 4.2 10^3/ul (1.5-7.7); Eosinophil % 1.5 %; Hematocrit 41 % (42-52); Hemoglobin 14.4 g/dL (14.0-18.0); Lymphocyte % 16.1 %; Mean Corpuscular HGB Conc 35 g/dL (31-36); Mean Corpuscular Hemoglobin 33 pg (27-31); Mean Corpuscular Volume 92 fL (80-94); Platelet Count 170 10^3/uL (150-450); Red Blood Count 4.41 10^6 /uL (4.18-5.48); Red Cell Distribution Width 13 % (10-15); White Blood Count 6.1 10^3/uL (3.5-10.8)
[2019-07-15 11:12] LABS: INR 2.17 (0.82-1.09)
[2019-07-15 11:19] LABS: ALT 12 U/L (7-52); AST 13 U/L (13-39); Albumin 3.8 g/dL (3.2-5.2); Albumin/Globulin Ratio 1.5 (1-3); Alkaline Phosphatase 55 U/L (34-104); Anion Gap 6 mmol/L (2-11); BUN/Creatinine Ratio 30.6 (8-20); Blood Urea Nitrogen 34 mg/dL (6-24); CO2 Carbon Dioxide 29 mmol/L (22-32); Calcium 8.8 mg/dL (8.6-10.3); Chloride 105 mmol/L (101-111); EGFR African American 75.5 (>60); EGFR Non-African American 62.4 (>60); Globulin 2.6 g/dL (2-4); Glucose 138 mg/dL (70-100); Magnesium 1.9 mg/dL (1.9-2.7); Potassium 3.4 mmol/L (3.5-5.0); Sodium 140 mmol/L (135-145); Total Protein 6.4 g/dL (6.4-8.9)
[2019-07-15 11:21] LABS: Troponin I 0.01 ng/mL (<0.03)
[2019-07-15 11:50] LABS: Alcohol < 10 mg/dL (<10)
[2019-07-15 12:03] LABS: TSH (Thyroid Stimulating Horm) 8.92 mcIU/mL (0.34-5.60)
[2019-07-15] MEDS ORDERED: Acetaminophen TAB* 325 MG PO PRN (12:52)
[2019-07-15 13:03] LABS: Urine Appearance Cloudy; Urine Bilirubin Negative (Negative); Urine Blood Negative (Negative); Urine Color Yellow; Urine Glucose Negative (Negative); Urine Ketones Negative (Negative); Urine Nitrite Positive (Negative); Urine Protein Negative (Negative); Urine Specific Gravity 1.018 (1.010-1.030); Urine Urobilinogen Negative (Negative)
[2019-07-15] MEDS ORDERED: Potassium Chlor TAB* 20 MEQ TAB.ER PO ONE (13:04)
[2019-07-15 13:08] LABS: Urine Bacteria Absent (Absent); Urine Red Blood Cell 2+(6-10/hpf) (Absent); Urine Squamous Epithelial Cell Present (Absent); Urine White Blood Cell 3+(>20/hpf) (Absent)
[2019-07-15] MEDS ORDERED: Magnesium Sulfate 2 GM IV* 2 GM/50 ML BAG IVPB ONE (13:08)
[2019-07-15 13:28] LABS: Free T4 0.86 ng/dL (0.61-1.12)
[2019-07-15] MEDS: Levothyroxine TAB* 25 MCG TAB PO SCH (14:31)
--- NOTE | 2019-07-15 15:07 | HP ---
CC: Dr. Tristan; Dr. Driver * HISTORY AND PHYSICAL: DATE OF ADMISSION: 07/15/19 PRIMARY CARE PHYSICIAN: Dr. Tristan. CURATORIAL SPECIALIST: Dr. Driver. ATTENDING PHYSICIAN: Dr. Madalyn Meraz * (dictation provided Comfort Tapia NP). CHIEF COMPLAINT: Syncope. HISTORY OF PRESENT ILLNESS: Mr. Campbell is an 89-year-old male with past medical history of paroxysmal atrial fibrillation, on chronic Coumadin therapy; coronary artery disease with stent placement in 2008; who presents today to the hospital after a syncopal episode while out at a diner. Mr. Campbell states that in the recent month he has had a fair significant bout of a "GI bug." He was seen here in our hospital on 06/23/19 for this concern at which time he had a CT abdomen and pelvis that showed concern for possible enteritis. The patient was discharged to home from the ED and states that his symptoms did resolve. The patient was with his at a local diner when they were waiting for food and the patient had a syncopal episode. The patient was seated at this time. His describes him as leaning forward, being unconscious, having some shaking of his extremities, and some difficulty breathing or apnea. The patient was in and out of consciousness for several minutes and only regained consciousness once EMS arrived. The patient states he is feeling fine now. He has no complaints. He has no chest pain, no shortness of breath, no nausea, vomiting, diarrhea, or abdominal pain. Mr. Campbell was last seen by his Route Contractor Dr. Driver in January 2019. At that time, the patient reported some odd chest "sensations" while seated and the plan was for a Holter monitor. Per the patient's report, the Holter monitor showed no significant relevant abnormalities. I am not able to view that in the [facility] chart today. The patient does confirm that he was having this type of symptoms that are difficult for him to describe in his chest. They do not seem to be related specifically to activity. In addition to the episode today, he describes feeling unusual while walking around in [employer] recently with some perhaps presyncopal type symptoms, but again he has difficulty describing them. In the emergency room, the patient had labs which showed only potassium of 3.4, his TSH was elevated at 8.92. He has no history of hypothyroidism. Free T3 and T4 pending. He has no leukocytosis. His INR is appropriate too given that he is on warfarin. He appears may be perhaps mildly orthostatic via blood pressure criteria and he has been relatively bradycardic with the heart rate running as low as 48, but generally hanging in the 50s. Again he is asymptomatic now. I will note that the patient has had 2 previous admissions that were related to syncope in the setting of not feeling well. In 2014 he was described to have 3 episodes of syncope related to gastroenteritis and he was again admitted in 2017 with syncope thought to be related to paroxysmal atrial fibrillation in the setting of lyme disease. PAST MEDICAL HISTORY: 1. History of atrial fibrillation on Coumadin. 2. Coronary artery disease status post stent to LAD and RCA in 2008. 3. Hyperlipidemia. 4. Hypertension. 5. History of cholecystectomy. 6. BPH. MEDICATIONS: 1. Glucosamine chondroitin 2 caps p.o. daily. 2. Metoprolol tartrate 50 mg p.o. b.i.d. 3. Multivitamin 1 cap p.o. daily. 4. Tylenol 650 mg p.o. q.4 hours p.r.n. 5. Aspirin 81 mg p.o. daily. 6. Atorvastatin 40 mg p.o. daily. 7. Finasteride 5 mg p.o. daily. 8. Hydrochlorothiazide 25 mg p.o. daily. 9. Lisinopril 10 mg p.o. daily. 10. Potassium chloride 10 mEq p.o. daily. 11. Tamsulosin 0.4 mg p.o. daily. 12. Warfarin 3 mg everyday except for Tuesday when he takes 2 mg. ALLERGIES: No known drug allergies. FAMILY HISTORY: No report of early heart disease in the family. His uncle did have a brain tumor. SOCIAL HISTORY: The patient is a former smoker, but he quit more than 30 years ago. Only occasional alcohol use. He lives with his Amanda who is his health care proxy. REVIEW OF SYSTEMS: A 14-point review of systems was completed with Mr. Campbell and those mentioned above were negative. PHYSICAL EXAMINATION GENERAL: Mr. Campbell is lying in bed with his Amanda at the bedside. VITAL SIGNS: Temperature 97.8, pulse rate 54, respiratory rate 17, O2 saturation 95% on room air, blood pressure 142/63. LUNGS: Clear to auscultation bilaterally with no accessory muscle use and good aeration. HEART: S1 and S2. No murmur, rub, or gallop and regular. ABDOMEN: Soft and nontender with bowel sounds positive x4. EXTREMITIES: No cyanosis or edema. SKIN: Intact. NEUROLOGIC: He is alert, he is oriented x3. He moves all extremities equally. There is no facial asymmetry or focal weakness. Extraocular movements are intact. LABORATORY DATA: WBC is 6.1, hemoglobin 14.4, hematocrit 41, platelet count 170, INR 2.17. Sodium 140, potassium 3.4, chloride 105, serum bicarbonate 34, creatinine 1.11, glucose 138, lactic acid 1.3, magnesium 1.9. Troponin 0.01. Ammonia 61, TSH 8.92, free T4 and T3 pending. Brain CT shows no acute abnormality. Chest x-ray shows no acute abnormality. EKG shows sinus bradycardia with a heart rate of about 45. ASSESSMENT: Mr. Campbell is an 89-year-old male with a past medical history of atrial fibrillation on Coumadin and coronary artery disease with stent placement in 2008, who presents today with concern for syncope. PLAN/RECOMMENDATIONS: As follows: 1. Syncope: Certainly, the patient has a history of syncope but his symptoms are concerning for potential cardiac abnormality. He will be monitored on telemetry unit at all times. I am encouraging him to get up and ambulate on the unit to see if we can provoke any symptoms while we are having him monitored and he will go on for a transthoracic echocardiogram. Plan to replete potassium and magnesium. He does show bradycardia, and plan to reduce the metoprolol by half. He has some relative orthostasis though this is mild, but for now plan to hold lisinopril and hydrochlorothiazide until we can reevaluate and reconsider whether or not this should be dosed in the a.m. He does seem to have some relative hypothyroidism and I am starting a low dose of levothyroxine now while we await free T3, T4 given that he perhaps has symptomatic bradycardia. I suspect that he would greatly benefit from a loop recorder placement outpatient as he has had a Holter monitor with no finding. 2. Atrial fibrillation, on Coumadin. Plan to continue Coumadin. His INR is therapeutic. He will be on telemetry monitoring. 3. Coronary artery disease. No evidence of acute coronary syndrome. Troponin is negative. 4. Hypertension. Again we are holding lisinopril/hydrochlorothiazide and reducing his dose of metoprolol for now, but these may need to be resumed in the a.m. 5. History of BPH. Continue home medications. 6. DVT prophylaxis with Coumadin. 7. Code status is full home. This was reviewed with him and his at the bedside. TIME SPENT: Approximately 60 minutes was spent in the admission of this patient , more than half the time was spent with the patient at the bedside reviewing the events leading up to this hospitalization, performing physical examination, and reviewing my plan of care. COMFORT TAPIA NP [id number]/CPS #: [id number] MTDYohannes
[2019-07-15] MEDS ORDERED: Warfarin TAB(*) 2 MG PO SCH (17:00)
[2019-07-15] MEDS: cefTRIAXone(*) 1 GM in NS 0.9% 50 ML* 50 ML IVPB SCH (20:20)
[2019-07-15] MEDS: Metoprolol Tartrate TAB* 25 MG PO SCH (21:16)
[2019-07-15] MEDS ORDERED: Calcium Carbonate CHEW TAB* 500 MG (TUMS) PO PRN (21:29)
[2019-07-16] MEDS: Levothyroxine TAB* 25 MCG TAB PO SCH (05:24)
[2019-07-16] MEDS ORDERED: Lisinopril TAB* 10 MG PO SCH (09:00)
[2019-07-16] MEDS ORDERED: Hydrochlorothiazide TAB* 25 MG PO SCH (09:00)
[2019-07-16] MEDS: Tamsulosin CAP* 0.4 MG PO SCH ×3 (09:42→16:53)
[2019-07-16] MEDS: Metoprolol Tartrate TAB* 25 MG PO SCH ×2 (09:42→21:01)
[2019-07-16] MEDS: Atorvastatin* 40 MG TAB PO SCH (09:42)
[2019-07-16] MEDS: Potassium Chlor TAB* 10 MEQ TAB.ER PO SCH (09:43)
[2019-07-16] MEDS: Finasteride TAB* 5 MG PO SCH (09:43)
[2019-07-16] MEDS: Aspirin EC TAB* 81 MG TAB.EC PO SCH (09:44)
--- NOTE | 2019-07-16 10:14 | PN ---
Subjective Date of Service: 07/16/19 Interval History: Pt is feeling ok this AM. No episodes of syncope since being admitted. He has not been up and walking more than to the bathroom but during that walk his HR got up to about 130 but he was asymptomatic. He tolerated breakfast. Objective Active Medications: Acetaminophen (Tylenol Tab*) 650 mg PO Q4H PRN PRN Reason: FEVER,PAIN Aspirin (Aspirin Ec Tab*) 81 mg PO DAILY [facility] Last Admin: 07/16/19 09:44 Dose: 81 mg Atorvastatin Calcium (Lipitor*) 40 mg PO DAILY [facility] Last Admin: 07/16/19 09:42 Dose: 40 mg Calcium Carbonate (Tums*) 500 mg PO Q4H PRN PRN Reason: HEARTBURN Last Admin: 07/15/19 21:38 Dose: 500 mg Finasteride (Proscar Tab*) 5 mg PO DAILY [facility] Last Admin: 07/16/19 09:43 Dose: 5 mg Ceftriaxone Sodium 1 gm/ (Sodium Chloride) 50 mls @ 100 mls/hr IVPB Q24H [facility] Last Admin: 07/15/19 20:20 Dose: 100 mls/hr Levothyroxine Sodium (Synthroid Tab*) 25 mcg PO DAILY@0600 [facility] Last Admin: 07/16/19 05:24 Dose: 25 mcg Metoprolol Tartrate (Lopressor Tab*) 25 mg PO BID [facility] Last Admin: 07/16/19 09:42 Dose: 25 mg Potassium Chloride (Klor Con Er Tab*) 10 meq PO DAILY [facility] Last Admin: 07/16/19 09:43 Dose: 10 meq Tamsulosin HCl (Flomax Cap*) 0.4 mg PO DAILY [facility] Warfarin Sodium (Coumadin Tab(*)) 2 mg PO MoWeThFr@1700 [facility]; Protocol Warfarin Sodium (Coumadin Tab(*)) 3 mg PO Tu@1700 [facility]; Protocol Warfarin Sodium (Coumadin Tab(*)) 2 mg PO Sa@1700 [facility] Warfarin Sodium (Coumadin Tab(*)) 2 mg PO Mendoza@1700 [facility] Last Admin: 07/15/19 17:19 Dose: 2 mg Vital Signs - 8 hr 07/16/19 07/16/19 07/16/19 03:38 07:29 07:32 Temperature 98.4 F 98.1 F 98.3 F Pulse Rate 74 64 55 Respiratory 16 16 16 Rate Blood Pressure 117/57 129/54 132/73 (mmHg) O2 Sat by Pulse 95 94 100 Oximetry 07/16/19 07:59 Temperature Pulse Rate 62 Respiratory Rate Blood Pressure (mmHg) O2 Sat by Pulse Oximetry Oxygen Devices in Use Now: None Appearance: Elderly male sitting up in bed, NAD Eyes: No Scleral Icterus Ears/Nose/Mouth/Throat: Mucous Membranes Moist Respiratory: Symmetrical Chest Expansion and Respiratory Effort, Clear to Auscultation Cardiovascular: NL Sounds; No Murmurs; No JVD, RRR, No Edema Abdominal: NL Sounds; No Tenderness; No Distention Extremities: No Clubbing, Cyanosis Skin: No Nodules or Sclerosis Neurological: Alert and Oriented x 3 Result Diagrams: 07/15/19 10:55 07/15/19 10:55 Assess/Plan/Problems-Billing Mr Campbell is an 89 yo M who has a h/o afib on coumadin, CAD, HTN and HLD who presented to the ER with c/o syncope. - Patient Problems (1) Syncope Current Visit: Yes Status: Acute Code(s): R55 - SYNCOPE AND COLLAPSE SNOMED Code(s): 960365516 Comment: Pt with episode of syncope yesterday while sitting at a resturant waiting for his food to be delivered. He states he may have felt a little odd before passing out but he denied lightheadedness or a sensation that he was going to pass out. This is similar to episodes he has had in the past. Cardiology consultation requested for determining if he would be a candidate for a linx monitor. Check orthostatic vitals. I doubt he is volume deplete from his recent GI bug as he was eating/drinking normally. He was mildly bradycardic on admission but no longer. (2) PAF (paroxysmal atrial fibrillation) Current Visit: Yes Status: Acute Code(s): I48.0 - PAROXYSMAL ATRIAL FIBRILLATION SNOMED Code(s): 588105006 Comment: Pt is in NSR currently with PVCs. Continue metoprolol- dose was reduced to 25mg BID due to bradycardia. INR is therapeutic. Continue current dose of coumadin. (3) HTN (hypertension) Current Visit: Yes Status: Chronic Priority: High Code(s): I10 - ESSENTIAL (PRIMARY) HYPERTENSION SNOMED Code(s): 98807751 Comment: BP is under good control on metoprolol alone, HCTZ and lisinopril are on hold. (4) CAD (coronary artery disease) Current Visit: Yes Status: Chronic Code(s): I25.10 - ATHSCL HEART DISEASE OF [place] CORONARY ARTERY W/O ANG PCTRS SNOMED Code(s): 51700169 Comment: No c/o chest pain. Continue ASA, lipitor and metoprolol. (5) Hyperlipidemia Current Visit: Yes Status: Chronic Code(s): E78.5 - HYPERLIPIDEMIA, UNSPECIFIED SNOMED Code(s): 83143230 Comment: Continue lipitor. (6) BPH (benign prostatic hypertrophy) Current Visit: Yes Status: Chronic Code(s): N40.0 - BENIGN PROSTATIC HYPERPLASIA WITHOUT LOWER URINRY TRACT SYMP SNOMED Code(s): 231799484 Comment: Continue flomax and proscar. (7) GERD (gastroesophageal reflux disease) Current Visit: Yes Status: Acute Code(s): K21.9 - GASTRO-ESOPHAGEAL REFLUX DISEASE WITHOUT ESOPHAGITIS SNOMED Code(s): 273828494 Comment: Continue omeprazole. (8) DVT prophylaxis Current Visit: Yes Status: Acute Onset Date: 08/10/14 Code(s): IXH3833 - SNOMED Code(s): 052104890 Comment: therapeutic INR (9) Full code status Current Visit: Yes Status: Acute Code(s): Z78.9 - OTHER SPECIFIED HEALTH STATUS SNOMED Code(s): 172469576
--- NOTE | 2019-07-16 13:50 | ECHO ---
*[facility]* [place] [address] Fax #: [phone] Transthoracic Echocardiogram Patient: Gene Campbell : 1930 Study Date: 07/16/2019 Age: 89 Gender: M HR: 66 bpm Height: 68 in /172.7 cm BSA: 1.87 m^2 Weight: 159.7 lb /72.6 kg BMI: 24.3 kg/m^2 *Bull Riveter: Tiffanie Collins [facility] *Referring Physician: * Comfort Tapia *Reading Physician: * Odell Ritchie MD Indications: Syncope. History: Coronary artery disease. Risk factors: Hypertension. Dyslipidemia. Labs, prior tests, procedures, and surgery: Catheterization. There was a stenosis which was treated with a stent. Conclusions Summary: - Left ventricle: Systolic function is at the lower limits of normal. The estimated ejection fraction is 50-55%. Wall motion is normal; there are no regional wall motion abnormalities. - Mitral valve: There is trace regurgitation. - Aortic valve: The findings are consistent with mild stenosis. There is mild regurgitation. The mean systolic gradient is 8.0 mm Hg. The valve area by the velocity-time integral method is 1.40 cm^2. The valve area by the peak velocity method is 1.50 cm^2. The regurgitation pressure half-time is 466 ms. - Tricuspid valve: There is trace to mild regurgitation. - Pulmonary arteries: Systolic pressure is mildly increased. - Compared to study of 11/29/16, there is no significant change Study data: Transthoracic echocardiogram. Procedure: Transthoracic echocardiography was performed. Image quality was fair. Complete 2D, spectral Doppler, and color flow Doppler. Location: Bedside. Patient status: Inpatient. Patient room number: 448 01. Rhythm: Normal sinus rhythm with PVC's. Findings Left ventricle: The cavity size is normal. Wall thickness is normal. Systolic function is at the lower limits of normal. The estimated ejection fraction is 50-55%. Wall motion is normal; there are no regional wall motion abnormalities. Doppler parameters are consistent with abnormal left ventricular relaxation (grade 1 diastolic dysfunction). Right ventricle: The cavity size is normal. Systolic function is normal. Left atrium: The atrium is at the upper limits of normal in size. Right atrium: The atrium is normal in size. Mitral valve: The Mitral valve annulus appears calcified. The leaflets are mildly thickened. There is no evidence of stenosis. There is trace regurgitation. Aortic valve: The annulus is mildly calcified. The valve is trileaflet. The leaflets are moderately thickened. Left coronary cusp mobility is restricted. The findings are consistent with mild stenosis. There is mild regurgitation. Tricuspid valve: The leaflets are normal thickness. There is no evidence of stenosis. There is trace to mild regurgitation. Pulmonic valve: The leaflets are normal thickness. There is no evidence of stenosis. There is mild regurgitation. Aorta: Aortic root: The aortic root is mildly dilated. Ascending aorta: The ascending aorta is mildly dilated. Aortic arch: The aortic arch is appears normal. Pericardium: There is no significant pericardial effusion. Pulmonary arteries: Systolic pressure is mildly increased. Systemic veins: Inferior vena cava: Not well visualized. Measurements Left ventricle Value Ref Aortic valve continued Value Ref JOIE, LAX 4.9 cm 4.2 - 5.8 Peak grad, S 14.0 mm Hg ----- ESD, LAX 3.0 cm 2.5 - 4.0 LVOT/AV, VTI ratio 0.4 ----- FS, LAX 39 % 25 - 43 VALERIANO, VTI 1.40 cm^2 ----- PW, ED, LAX 1.0 cm 0.6 - 1.0 VALERIANO, Vmax 1.50 cm^2 ----- E', lat nereyda, TDI (L) 5.0 cm/sec >=10.0 AR peak v 3.71 m/sec ----- E/e', lat nereyda, 11 AR decel time 1606 ms --- -- TDI AR PHT 466 ms ----- E', med nereyda, TDI (L) 5.0 cm/sec >=7.0 AR peak grad 55 mm Hg ----- E/e', med nereyda, 11 TDI Mitral valve Value Ref E', avg, TDI 5.0 cm/sec Peak E 0.54 m/sec --- -- E/e', avg, TDI 11 <=14 Peak A 0.92 m/sec ----- VTI leaflet coapt 29.4 cm ----- LVOT Value Ref Decel time 229 ms ----- Diam, S 2.00 cm PHT 94 ms ----- Area 3.1 cm^2 Mean grad, D 1.7 mm Hg ----- Peak matthias, S 0.9 m/sec Peak grad, D 4.7 mm Hg ----- VTI, S 19.2 cm Peak E/A ratio 0.59 ----- Peak grad, S 3 mm Hg MVA, PHT 2.4 cm^2 ----- Mean grad, S 2 mm Hg Pulmonic valve Value Ref Ventricular septum Value Ref Peak v, S 0.6 m/sec ----- IVS, ED 0.9 cm 0.6 - 1.0 Peak grad, S 1.4 mm Hg ----- Right ventricle Value Ref Tricuspid valve Value Ref JOIE, LAX 2.9 cm Peak grad, D 31.0 mm Hg ----- Pressure, S 39 mm Hg TR peak v 2.8 m/sec <=2.8 Left atrium Value Ref Aortic root Value Ref AP dim, ES 3.50 cm 3.00 - Root diam 3.6 cm <4.0 4.00 ML dim, A4C 4.7 cm Ascending aorta Value Ref SI dim, A4C 6.5 cm AAo AP diam, S 3.6 cm ----- Vol/bsa, ES, 2-p 33 ml/m^2 16 - 34 AAo AP diam/bsa, S 1.9 cm/m^2 ----- Right atrium Value Ref Aortic arch Value Ref SI dim, ES 4.5 cm 3.4 - 5.3 Arch diam 2.7 cm ----- ML dim, ES, A4C 4.1 cm 2.6 - 4.4 Estimated RAP 8 mm Hg Decending aorta Value Ref Alfonso peak matthias 0.39 m/sec ----- Aortic valve Value Ref Nereyda diam, ED 2.0 cm Pulmonary artery Value Ref Nereyda diam/bsa, ED 1.1 cm/m^2 Pressure, S 37.6 mm Hg ----- Peak v, S 1.9 m/sec VTI, S 44.0 cm Mean grad, S 8.0 mm Hg Legend: (L) and (H) smiley values outside specified reference range. Prepared and electronically signed by Odell Ritchie MD 07/16/2019 13:50
--- NOTE | 2019-07-16 14:20 | CONS ---
CONSULTATION REPORT: DATE OF CONSULT: 07/16/19 ATTENDING PHYSICIAN: Dr. Odell Ritchie, Cardiology.* (DICTATED BY MARISA NORRIS NP) PRIMARY CHAR FILTER TANK TENDER HEAD: Historically, Dr. Driver. CHIEF COMPLAINT: Syncope. HISTORY OF PRESENT ILLNESS: This is a pleasant 89-year-old male patient who follows Dr. Driver of our practice due to a notable history of paroxysmal AFib, coronary artery disease with prior intervention, hypertension, hyperlipidemia, who presented to [facility] on 07/15/19 due to complaints of syncope. The patient states over the course of the last 3 to 4 weeks he has been noticing exertional fatigue in addition to lightheadedness. The patient states his last episode of syncope was several years ago when he had paroxysmal AFib with RVR. He denies chest pain. States historically his prior anginal equivalent was exertional fatigue and dyspnea. Yesterday morning around 9 o'clock, he states that he was at a restaurant with his daughter. The patient states he had a syncopal episode that was witnessed with no prodromal symptoms. He adds that afterwards he was diaphoretic and pale. I spoke to his daughter who is present, who states that the patient was unconscious for approximately 10 minutes. It was verified that he was pale and diaphoretic post episode. The patient denied chest pain or palpitations. While being evaluated at [facility], troponin was normal, TSH was 8.9, ammonia level 61, potassium was 3.4, urinalysis was nitrite positive. We were asked to see the patient in consultation for possible loop recorder implantation due to recurrent syncope. Last ischemic evaluation 2014; per MPI report there was mild decrease in activity in the inferior wall on both resting and stress imaging. ? dur to infarct versus attenuation artifact. normal wall motion. LVEF 73%. Last cardiac catheterization according to our medical records was in 2008. At that time, left main was short, luminal irregularities. LAD 95% to 99% stenosis. Left circumflex 30% stenosis. Right coronary artery proximal to mid 70% stenosis. The patient states he underwent intervention at [facility]. I have requested outpatient medical records to confirm PCI in addition to last ischemic evaluation. [facility] cardiac cath report from 10/11/2008; successful PTCA /4x18mm endeavor stent to mid RCA, PTCA/2.5x12mm endeavor stent to proximal LAD. Last echocardiogram in November of 2018. Per report, LVEF 50% to 55%, left atrium severely dilated. [id number] aortic regurgitation. Trace to mild mitral insufficiency, moderate tricuspid regurgitation, moderate pulmonary hypertension. PAST MEDICAL HISTORY: 1. Pulmonary hypertension. 2. Aortic insufficiency. 3. Tricuspid insufficiency. 4. Coronary artery disease. 5. Hypertension. 6. Hyperlipidemia. 7. GERD. 8. BPH. 9. Paroxysmal AFib, on Coumadin therapy. PAST SURGICAL HISTORY: Includes: 1. ERCP. 2. Cholecystectomy. 3. Cataract surgery. 4. Coronary intervention at [place]. HOME MEDICATIONS: Per admission med rec. ALLERGIES: No known drug allergies. FAMILY HISTORY: Noncontributory. SOCIAL HISTORY: The patient is listed as full code. Denies tobacco abuse, alcohol abuse, or illegal drug use. PHYSICAL EXAM: Temperature 98.8, pulse 60, respirations 16, oxygenation 97% on room air, blood pressure 122/62. General: The patient is lying upright in bed , appears in no apparent distress, is cooperative with examination, daughter at bedside. HEENT: Head is atraumatic, normocephalic. Oral mucosa is moist. Tongue is midline. Neck: Supple. Trachea midline. No JVD. No carotid bruits. Cardiac: Normal S1, S2. Regular rate and rhythm. Diastolic aortic murmur noted. No gallop or rub. Lungs: Auscultated posteriorly. Slight inspiratory rhonchi noted in bilateral bases. /GI: Abdomen is soft, nontender, nondistended. Normoactive bowel sounds x4. Extremities: No pedal edema, no clubbing, no cyanosis. Peripheral Vascular: 2 + brachial and dorsalis pedis pulse palpated bilaterally and symmetrically. DIAGNOSTIC STUDIES/LAB DATA: Blood work reviewed. White count 6.1, hemoglobin 14.4, hematocrit 41, platelets 170. Sodium 140, potassium 3.4, chloride 105, carbon dioxide 29, BUN 34, creatinine 1.1, glucose 138. Ammonia 61. TSH 8.92. Troponin negative x1. Urinalysis nitrite positive. Please note, urine culture is pending. INR 2.17. Brain CT, 07/15/19; per Radiology report, no acute intracranial process. EKG, 07/15/19: Sinus bradycardia, rate 49 beats per minute. No ischemic ECG changes appreciated. Telemetry reviewed. The patient had an episode of sinus tachycardia while ambulating to the bathroom at 0935 on 07/16/19 with multifocal P wave morphology noted. He was asymptomatic. ASSESSMENT AND PLAN: 1. Syncope. Historically would occur in the setting of atrial fibrillation with rapid ventricular response. The patient did not have prodromal symptoms. The patient does note exertional lightheadedness and fatigue occurring over the last several weeks. In the past, his coronary equivalent would be exertional fatigue. Troponin negative x1. Echocardiogram pending at this time. We would recommend updating exercise nuclear stress test, hold beta-delbert morning of stress test to evaluate for chronotropic insufficiency. The patient did have a period of sinus tachycardia while ambulating to the bathroom this morning with multifocal P wave morphology noted. The patient may need eventual permanent pacemaker. We will follow closely post ischemic evaluation. The patient has not had atrial fibrillation while on telemetry during this stay. 2. History of coronary artery disease, on aspirin, statin, and beta blockade therapy, with prior intervention in [place] to mid RCA and Proximal LAD. He denies chest pain, although in the past his coronary equivalent would be exertional fatigue. Troponin is normal x1. No ischemic EKG changes noted. Echocardiogram pending to rule out regional wall motion abnormality. We will update exercise nuclear stress test on 07/17/19. Noted reduction in Lopressor therapy. 3. History of PAF; Currently in NSR. On Coumaidn therapy goal INR 2-3. 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 4. Abnormal urinalysis, positive nitrite. Pending urine culture. Was recently on antibiotic therapy with Dr. Moser due to abnormal urinalysis per the patient. We will defer to primary team. 5. Elevated TSH. We will defer to primary team. The patient is now on levothyroxine. 6. Hypokalemia. K replaced. Recommend keeping K greater than 4, mag greater than 2. 7. Disposition: Pending course. The patient is listed as full code. Dr. Odell Ritchie has personally seen and examined the patient and agrees with the above assessment and plan. Thank you for this kind consultation. Any future questions or concerns, please do not hesitate to contact our practice. MARISA NORRIS NP [id number]/[facility] #: [id number] JERRY
[2019-07-16] MEDS ORDERED: Warfarin TAB(*) 2 MG PO SCH (17:00)
[2019-07-16] MEDS: cefTRIAXone(*) 1 GM in NS 0.9% 50 ML* 50 ML IVPB SCH (18:24)
[2019-07-17 07:21] LABS: BUN/Creatinine Ratio 24.2 (8-20); Calcium 8.8 mg/dL (8.6-10.3); EGFR African American 86.1 (>60); EGFR Non-African American 71.2 (>60); Potassium 3.6 mmol/L (3.5-5.0)
[2019-07-17 08:32] LABS: INR 2.34 (0.82-1.09)
[2019-07-17] MEDS ORDERED: Regadenoson* 0.4 MG/5 ML SYRINGE ONE (08:50)
[2019-07-17] MEDS ORDERED: Aminophylline IV* 25 MG/ML 10 ML VIAL ONE (08:51)
[2019-07-17] MEDS: Aspirin EC TAB* 81 MG TAB.EC PO SCH (10:17)
[2019-07-17] MEDS: Atorvastatin* 40 MG TAB PO SCH (10:17)
[2019-07-17] MEDS: Finasteride TAB* 5 MG PO SCH (10:17)
[2019-07-17] MEDS: Metoprolol Tartrate TAB* 25 MG PO SCH ×2 (10:18→20:26)
[2019-07-17] MEDS: Potassium Chlor TAB* 10 MEQ TAB.ER PO SCH (10:18)
[2019-07-17] MEDS ORDERED: Potassium Chlor TAB* 10 MEQ TAB.ER PO ONE (10:43)
--- NOTE | 2019-07-17 11:10 | PN ---
Subjective Date of Service: 07/17/19 - Syncope Interval History: No events last night, On telemetry around 8:18pm HR 120 BPM MAT,patient not symptomatic. Denies dizziness or any other complaints. Daughter at bedside. Medications Active Medications: Acetaminophen (Tylenol Tab*) 650 mg PO Q4H PRN PRN Reason: FEVER,PAIN Aspirin (Aspirin Ec Tab*) 81 mg PO DAILY [facility] Last Admin: 07/17/19 10:17 Dose: 81 mg Atorvastatin Calcium (Lipitor*) 40 mg PO DAILY [facility] Last Admin: 07/17/19 10:17 Dose: 40 mg Calcium Carbonate (Tums*) 500 mg PO Q4H PRN PRN Reason: HEARTBURN Last Admin: 07/15/19 21:38 Dose: 500 mg Finasteride (Proscar Tab*) 5 mg PO DAILY [facility] Last Admin: 07/17/19 10:17 Dose: 5 mg Ceftriaxone Sodium 1 gm/ (Sodium Chloride) 50 mls @ 100 mls/hr IVPB Q24H [facility] Last Admin: 07/16/19 18:24 Dose: 100 mls/hr Metoprolol Tartrate (Lopressor Tab*) 25 mg PO BID [facility] Last Admin: 07/17/19 10:18 Dose: 25 mg Potassium Chloride (Klor Con Er Tab*) 10 meq PO DAILY [facility] Last Admin: 07/17/19 10:18 Dose: 10 meq Tamsulosin HCl (Flomax Cap*) 0.4 mg PO QPM [facility] Last Admin: 07/16/19 16:53 Dose: 0.4 mg Objective Vital Signs: Temp Pulse Resp BP Pulse Ox 97.3 F 63 18 134/70 98 07/17/19 10:55 07/17/19 07:15 07/17/19 10:55 07/17/19 10:55 07/17/19 10:55 Oxygen Devices in Use Now: None Appearance: sitting upright in bed, reading newspaper, offers no complaints. A+ Ox3 Eyes: No Scleral Icterus, PERRLA Ears/Nose/Mouth/Throat: NL Teeth, Lips, Gums, Clear Oropharnyx, Mucous Membranes Moist Neck: NL Appearance and Movements; NL JVP, Trachea Midline Respiratory: Symmetrical Chest Expansion and Respiratory Effort, Clear to Auscultation Cardiovascular: NL Sounds; No Murmurs; No JVD, No Edema Extremities: No Edema Neurological: Alert and Oriented x 3 Lines/Tubes/Other Access: Clean, Dry and Intact Peripheral IV Laboratory Results: 07/15/19 10:55 07/17/19 06:56 INR (Anticoag Therapy) 2.34 (0.82-1.09) H 07/17/19 06:56 Total Bilirubin 1.00 mg/dL (0.2-1.0) 07/15/19 10:55 AST 13 U/L (13-39) 07/15/19 10:55 ALT 12 U/L (7-52) 07/15/19 10:55 Alkaline Phosphatase 55 U/L (34-104) 07/15/19 10:55 B-Natriuretic Peptide 41 pg/mL (<=100) 07/15/19 10:55 Total Protein 6.4 g/dL (6.4-8.9) 07/15/19 10:55 Albumin 3.8 g/dL (3.2-5.2) 07/15/19 10:55 Globulin 2.6 g/dL (2-4) 07/15/19 10:55 Albumin/Globulin Ratio 1.5 (1-3) 07/15/19 10:55 TSH 8.92 mcIU/mL (0.34-5.60) H 07/15/19 10:55 07/15/19 10:55 Troponin I 0.01 Laboratory Results - last 24 hr 07/17/19 07/17/19 06:56 06:56 INR (Anticoag Therapy) 2.34 H Sodium 140 Potassium 3.6 Chloride 105 Carbon Dioxide 30 Anion Gap 5 BUN 24 Creatinine 0.99 Est GFR ( Amer) 86.1 Est GFR (Non-Af Amer) 71.2 BUN/Creatinine Ratio 24.2 H Glucose 105 H Calcium 8.8 Diagnostic Imaging: *[facility]* [place] [address] Fax #: [phone] Transthoracic Echocardiogram Patient: Gene Campbell : 1930 Study Date: 07/16/2019 Age: 89 Gender: M HR: 66 bpm Height: 68 in /172.7 cm BSA: 1.87 m^2 Weight: 159.7 lb /72.6 kg BMI: 24.3 kg/m^2 *Meat Service Team Member: * Tiffanie Sweeney [facility] *Referring Physician: * Comfort TapiaReading Physician: * Odell Ritchie MD Indications: Syncope. History: Coronary artery disease. Risk factors: Hypertension. Dyslipidemia. Labs, prior tests, procedures, and surgery: Catheterization. There was a stenosis which was treated with a stent. Conclusions Summary: - Left ventricle: Systolic function is at the lower limits of normal. The estimated ejection fraction is 50-55%. Wall motion is normal; there are no regional wall motion abnormalities. - Mitral valve: There is trace regurgitation. - Aortic valve: The findings are consistent with mild stenosis. There is mild regurgitation. The mean systolic gradient is 8.0 mm Hg. The valve area by the velocity-time integral method is 1.40 cm^2. The valve area by the peak velocity method is 1.50 cm^2. The regurgitation pressure half-time is 466 ms. - Tricuspid valve: There is trace to mild regurgitation. - Pulmonary arteries: Systolic pressure is mildly increased. - Compared to study of 11/29/16, there is no significant change This report is only to be considered final once signed by the Provider(s) as displayed in the "<Electronically Signed by >" field (s). Absence of a signature indicates the report is in a draft status and still needs to be finalized. In the event this document was created by someone other than the signing Provider, the individual initiating the document will be listed in the "Entered by:" or "Dictated by:" lim. Assessment/Plan #1 Syncope 07/15/2019; While in ER had HR in 40's but was asymptomatic. On telemetry he has been having periods of MAT (120's) again asymptomatic at this time. EST with MPI is pending. Treadmill portion intermediate risk given he was only able to exercise for 3 minutes achieving 4.6 mets. He did achieve 116% MPHR. Await nuclear imaging. He may need PPM implant for tachy dre syndrome will d/w Dr. Ritchie. Of note INR 2.3, he would need Vit k tonight for reversal. Currently being treated for + UTI ( E. Coli) #2 h/o CAD with prior intervention to mid RCA and proximal LAD in 2008; On ASA, statin and bblocker therapy. Trop negative. Await MPI report. Echo 07/16/2019 normal wall motion. #3 h/o mild . follow up outpatient. #4 UTI ( E. Coli) primary team managing. On IV ceftriaxone therapy. Attending: Odell Ritchie
--- NOTE | 2019-07-17 11:53 | PN ---
Subjective Date of Service: 07/17/19 Interval History: Pt is feeling well. He is hungry and is awaiting the results of his stress test. He denies any recurrent symptoms of lightheadedness/near syncope. However , he has not walked much. Objective Active Medications: Acetaminophen (Tylenol Tab*) 650 mg PO Q4H PRN PRN Reason: FEVER,PAIN Aspirin (Aspirin Ec Tab*) 81 mg PO DAILY [facility] Last Admin: 07/17/19 10:17 Dose: 81 mg Atorvastatin Calcium (Lipitor*) 40 mg PO DAILY [facility] Last Admin: 07/17/19 10:17 Dose: 40 mg Calcium Carbonate (Tums*) 500 mg PO Q4H PRN PRN Reason: HEARTBURN Last Admin: 07/15/19 21:38 Dose: 500 mg Finasteride (Proscar Tab*) 5 mg PO DAILY [facility] Last Admin: 07/17/19 10:17 Dose: 5 mg Ceftriaxone Sodium 1 gm/ (Sodium Chloride) 50 mls @ 100 mls/hr IVPB Q24H [facility] Last Admin: 07/16/19 18:24 Dose: 100 mls/hr Metoprolol Tartrate (Lopressor Tab*) 25 mg PO BID [facility] Last Admin: 07/17/19 10:18 Dose: 25 mg Potassium Chloride (Klor Con Er Tab*) 10 meq PO DAILY [facility] Last Admin: 07/17/19 10:18 Dose: 10 meq Tamsulosin HCl (Flomax Cap*) 0.4 mg PO QPM [facility] Last Admin: 07/16/19 16:53 Dose: 0.4 mg Vital Signs - 8 hr 07/17/19 07/17/19 07/17/19 07:15 08:00 10:55 Temperature 97.1 F 97.3 F Pulse Rate 63 Respiratory 20 16 18 Rate Blood Pressure 132/57 134/70 (mmHg) O2 Sat by Pulse 95 98 Oximetry Oxygen Devices in Use Now: None Appearance: Elderly male sitting up in bed, NAD Eyes: No Scleral Icterus Ears/Nose/Mouth/Throat: Mucous Membranes Moist Respiratory: Symmetrical Chest Expansion and Respiratory Effort, Clear to Auscultation - few crackles RLL Cardiovascular: NL Sounds; No Murmurs; No JVD, RRR, No Edema Abdominal: NL Sounds; No Tenderness; No Distention Extremities: No Clubbing, Cyanosis Skin: No Nodules or Sclerosis Neurological: Alert and Oriented x 3 Result Diagrams: 07/15/19 10:55 07/17/19 06:56 Microbiology and Other Data: Microbiology 07/15/19 12:53 Urine Culture - Final Urine Escherichia Coli Assess/Plan/Problems-Billing Mr Campbell is an 89 yo M who has a h/o afib on coumadin, CAD, HTN and HLD who presented to the ER with c/o syncope. - Patient Problems (1) Syncope Current Visit: Yes Status: Acute Code(s): R55 - SYNCOPE AND COLLAPSE SNOMED Code(s): 819820316 Comment: Pt with episode of syncope while sitting at a resturant waiting for his food to be delivered. He states he may have felt a little odd before passing out but he denied lightheadedness or a sensation that he was going to pass out. This is similar to episodes he has had in the past. Tele is showing MAT, on admission his HR was in the 40's. He may need pacemaker. Await further cardiology input. (2) PAF (paroxysmal atrial fibrillation) Current Visit: Yes Status: Acute Code(s): I48.0 - PAROXYSMAL ATRIAL FIBRILLATION SNOMED Code(s): 535985660 Comment: Pt is in NSR currently with PVCs. Continue metoprolol- dose was reduced to 25mg BID due to bradycardia. INR is therapeutic-holding further doses of coumadin for possible pacemaker. May need vitamin K. (3) HTN (hypertension) Current Visit: Yes Status: Chronic Priority: High Code(s): I10 - ESSENTIAL (PRIMARY) HYPERTENSION SNOMED Code(s): 78329715 Comment: BP is under good control on metoprolol alone, HCTZ and lisinopril are on hold. (4) CAD (coronary artery disease) Current Visit: Yes Status: Chronic Code(s): I25.10 - ATHSCL HEART DISEASE OF [place] CORONARY ARTERY W/O ANG PCTRS SNOMED Code(s): 20904668 Comment: No c/o chest pain. Continue ASA, lipitor and metoprolol. (5) Hyperlipidemia Current Visit: Yes Status: Chronic Code(s): E78.5 - HYPERLIPIDEMIA, UNSPECIFIED SNOMED Code(s): 86714880 Comment: Continue lipitor. (6) BPH (benign prostatic hypertrophy) Current Visit: Yes Status: Chronic Code(s): N40.0 - BENIGN PROSTATIC HYPERPLASIA WITHOUT LOWER URINRY TRACT SYMP SNOMED Code(s): 527567567 Comment: Continue flomax and proscar. (7) GERD (gastroesophageal reflux disease) Current Visit: Yes Status: Acute Code(s): K21.9 - GASTRO-ESOPHAGEAL REFLUX DISEASE WITHOUT ESOPHAGITIS SNOMED Code(s): 000512424 Comment: Continue omeprazole. (8) DVT prophylaxis Current Visit: Yes Status: Acute Onset Date: 08/10/14 Code(s): SNJ2679 - SNOMED Code(s): 530668608 Comment: therapeutic INR (9) Full code status Current Visit: Yes Status: Acute Code(s): Z78.9 - OTHER SPECIFIED HEALTH STATUS SNOMED Code(s): 145649214
[2019-07-17] MEDS: Tamsulosin CAP* 0.4 MG PO SCH (16:18)
[2019-07-17] MEDS ORDERED: Warfarin TAB(*) 3 MG PO SCH (17:00)
[2019-07-17] MEDS: cefTRIAXone(*) 1 GM in NS 0.9% 50 ML* 50 ML IVPB SCH (20:26)
[2019-07-17] MEDS ORDERED: NS 0.9% 1000 ML** 1,000 ML IV SCH (23:45)
[2019-07-18 06:31] LABS: INR 2.26 (0.82-1.09)
[2019-07-18] MEDS: Finasteride TAB* 5 MG PO SCH (08:05)
[2019-07-18] MEDS: Potassium Chlor TAB* 10 MEQ TAB.ER PO SCH (08:05)
[2019-07-18] MEDS: Atorvastatin* 40 MG TAB PO SCH (08:05)
[2019-07-18] MEDS: Metoprolol Tartrate TAB* 25 MG PO SCH ×2 (08:05→21:53)
[2019-07-18] MEDS: Aspirin EC TAB* 81 MG TAB.EC PO SCH (08:05)
--- NOTE | 2019-07-18 09:21 | PN ---
<Zaria Broderick - Last Filed: 07/18/19 09:12> Subjective Date of Service: 07/18/19 - Syncope, abnormal stress test, tachy dre syndrome Interval History: No events last night, On telemetry patient had periods of bradycardia with non conducting p waves. He offers no further complaints. Denies chest pain, sob, ferrari , palpitations or dizziness. Medications Active Medications: Acetaminophen (Tylenol Tab*) 650 mg PO Q4H PRN PRN Reason: FEVER,PAIN Aspirin (Aspirin Ec Tab*) 81 mg PO DAILY [facility] Last Admin: 07/18/19 08:05 Dose: 81 mg Atorvastatin Calcium (Lipitor*) 40 mg PO DAILY [facility] Last Admin: 07/18/19 08:05 Dose: 40 mg Calcium Carbonate (Tums*) 500 mg PO Q4H PRN PRN Reason: HEARTBURN Last Admin: 07/15/19 21:38 Dose: 500 mg Finasteride (Proscar Tab*) 5 mg PO DAILY [facility] Last Admin: 07/18/19 08:05 Dose: 5 mg Ceftriaxone Sodium 1 gm/ (Sodium Chloride) 50 mls @ 100 mls/hr IVPB Q24H [facility] Last Admin: 07/17/19 20:26 Dose: 100 mls/hr Metoprolol Tartrate (Lopressor Tab*) 25 mg PO BID [facility] Last Admin: 07/18/19 08:05 Dose: 25 mg Potassium Chloride (Klor Con Er Tab*) 10 meq PO DAILY [facility] Last Admin: 07/18/19 08:05 Dose: 10 meq Tamsulosin HCl (Flomax Cap*) 0.4 mg PO QPM [facility] Last Admin: 07/17/19 16:18 Dose: 0.4 mg Objective Vital Signs: Temp Pulse Resp BP Pulse Ox 97.0 F 54 16 131/52 96 07/18/19 08:47 07/18/19 08:47 07/18/19 08:47 07/18/19 08:47 07/18/19 08:47 Oxygen Devices in Use Now: None Appearance: sitting upright in bed, reading newspaper, offers no complaints. A+ Ox3 Eyes: No Scleral Icterus, PERRLA Ears/Nose/Mouth/Throat: NL Teeth, Lips, Gums, Clear Oropharnyx, Mucous Membranes Moist Neck: NL Appearance and Movements; NL JVP, Trachea Midline Respiratory: Symmetrical Chest Expansion and Respiratory Effort, Clear to Auscultation Cardiovascular: NL Sounds; No Murmurs; No JVD, No Edema Extremities: No Edema Neurological: Alert and Oriented x 3 Lines/Tubes/Other Access: Clean, Dry and Intact Peripheral IV Laboratory Results: 07/15/19 10:55 07/17/19 06:56 INR (Anticoag Therapy) 2.26 (0.82-1.09) H 07/18/19 06:11 Total Bilirubin 1.00 mg/dL (0.2-1.0) 07/15/19 10:55 AST 13 U/L (13-39) 07/15/19 10:55 ALT 12 U/L (7-52) 07/15/19 10:55 Alkaline Phosphatase 55 U/L (34-104) 07/15/19 10:55 B-Natriuretic Peptide 41 pg/mL (<=100) 07/15/19 10:55 Total Protein 6.4 g/dL (6.4-8.9) 07/15/19 10:55 Albumin 3.8 g/dL (3.2-5.2) 07/15/19 10:55 Globulin 2.6 g/dL (2-4) 07/15/19 10:55 Albumin/Globulin Ratio 1.5 (1-3) 07/15/19 10:55 TSH 8.92 mcIU/mL (0.34-5.60) H 07/15/19 10:55 07/15/19 10:55 Troponin I 0.01 Laboratory Results - last 24 hr 07/18/19 06:11 INR (Anticoag Therapy) 2.26 H Diagnostic Imaging: *[facility]* [place] [address] Fax #: [phone] Transthoracic Echocardiogram Patient: Natan Campbell : 1930 Study Date: 07/16/2019 Age: 89 Gender: M HR: 66 bpm Height: 68 in /172.7 cm BSA: 1.87 m^2 Weight: 159.7 lb /72.6 kg BMI: 24.3 kg/m^2 *Sales And Service Specialist: Tiffanie Collins [facility] *Referring Physician: * Comfort TapiaReading Physician: * Odell Ritchie MD Indications: Syncope. History: Coronary artery disease. Risk factors: Hypertension. Dyslipidemia. Labs, prior tests, procedures, and surgery: Catheterization. There was a stenosis which was treated with a stent. Conclusions Summary: - Left ventricle: Systolic function is at the lower limits of normal. The estimated ejection fraction is 50-55%. Wall motion is normal; there are no regional wall motion abnormalities. - Mitral valve: There is trace regurgitation. - Aortic valve: The findings are consistent with mild stenosis. There is mild regurgitation. The mean systolic gradient is 8.0 mm Hg. The valve area by the velocity-time integral method is 1.40 cm^2. The valve area by the peak velocity method is 1.50 cm^2. The regurgitation pressure half-time is 466 ms. - Tricuspid valve: There is trace to mild regurgitation. - Pulmonary arteries: Systolic pressure is mildly increased. - Compared to study of 11/29/16, there is no significant change This report is only to be considered final once signed by the Provider(s) as displayed in the "<Electronically Signed by >" field (s). Absence of a signature indicates the report is in a draft status and still needs to be finalized. In the event this document was created by someone other than the signing Provider, the individual initiating the document will be listed in the "Entered by:" or "Dictated by:" lim. Patient Name: NATAN CAMPBELL Medical Record#: [id number] Ordering Physician: Zaria Broderick NP Acct.#: [id number] : 1930 Age: 89 Sex: M Location: [address] [place] [address]/TELEMETRY Exam Date: 07/17/19 0700 ADM Status: ADM IN Order Information: NUCLEAR CARDIAC STRESS TEST Accession Number: [id number] CPT: 05518 INDICATION: Syncope. Paroxysmal atrial fibrillation. COMPARISON: August 12, 2014 nuclear stress test. TECHNIQUE: #. One day protocol. #. On July 17, 2019: 10.880 mCi of Tc-99m Myoview were administered IV. SPECT images of the heart were obtained. #. On July 17, 2019: Under the direction of Dr. Khan, an exercise stress test was performed. The patient achieved a peak heart rate of 152 bpm, 116 % of the age- predicted maximum. Subsequently, the patient was given an IV injection of 25.030 mCi Tc- 99m Myoview. SPECT images of the heart were obtained and a gated wall motion study was performed. #. Body habitus precluded obtaining CT for attenuation correction. FINDINGS: Gated wall motion images were obtained at stress and demonstrate mild hypokinesia at the septum. The calculated left ventricular ejection fraction is 68 % at stress. Estimated LEFT ventricular end diastolic volume is 49 mL. Transient Ischemic Dilatation (TID) of the left ventricle 0.73. Abnormal is greater than 1.13 to 1.38. Large perfusion defect from the apical through the basilar inferior wall segments significantly greater at stress than rest. No additional LEFT ventricular perfusion abnormalities. IMPRESSION: #. Normal range estimated LEFT ventricular ejection fraction. Mild hypokinesia at the septum. #. While the exam is limited without CT for attenuation correction and the perfusion abnormality at the inferior wall may be secondary to diaphragmatic attenuation the observation that the perfusion defect appears significantly worse at stress than rest is concerning for potential stress-induced ischemia. ASSESSMENT: Intermediate risk based on nuclear portion. Based on imaging criteria from ACC/AHA 2002 Guideline Update for the Management of Patients With Chronic Stable Angina Table 23. Noninvasive Risk Stratification. <Electronically signed by Josue Jacobsen MD in [place]> 07/17/19 1136 Dictated By: Josue Jacobsen MD Dictated Date/Time: 07/17/19 1129 Transcribed Date/Time: 07/17/19 1129 Copy to: This report is only to be considered final once signed by the Provider(s) as displayed in the "<Electronically Signed by >" field (s). Absence of a signature indicates the report is in a draft status and still needs to be finalized. In the event this document was created by someone other than the signing Provider, the individual initiating the document will be listed in the "Entered by:" or "Dictated by:" lim. 1 of 2 EKG Data: Telemetry reviewed from 07/17-07/18; Sinus rhythm with periods of non conducting p waves. rate 60-70's. Assessment/Plan #1 Syncope 07/15/2019; While in ER had HR in 40's but was asymptomatic. On telemetry he has been having periods of MAT (120's) again asymptomatic at this time. EST with MPI showed + reversible ischemia. Plan is C once INR is subtherapeutic. Will order INR for 07/19/2019 and make patient NPO. 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 #2 h/o CAD with prior intervention to mid RCA and proximal LAD in 2008; On ASA, statin and bblocker therapy. Trop negative. MPI 07/17/2019 revealed +ischemia in apical through basilar inferior wall segmants. Echo 07/16/2019 normal wall motion. Plan is C once INR is < 2. #3 h/o mild . follow up outpatient. #4 UTI ( E. Coli) primary team managing. On IV ceftriaxone therapy. Attending: Maribel Orozco <Maribel Orozco - Last Filed: 07/18/19 12:34> Medications Active Medications: Acetaminophen (Tylenol Tab*) 650 mg PO Q4H PRN PRN Reason: FEVER,PAIN Aspirin (Aspirin Ec Tab*) 81 mg PO DAILY [facility] Last Admin: 07/18/19 08:05 Dose: 81 mg Atorvastatin Calcium (Lipitor*) 40 mg PO DAILY [facility] Last Admin: 07/18/19 08:05 Dose: 40 mg Calcium Carbonate (Tums*) 500 mg PO Q4H PRN PRN Reason: HEARTBURN Last Admin: 07/15/19 21:38 Dose: 500 mg Finasteride (Proscar Tab*) 5 mg PO DAILY [facility] Last Admin: 07/18/19 08:05 Dose: 5 mg Ceftriaxone Sodium 1 gm/ (Sodium Chloride) 50 mls @ 100 mls/hr IVPB Q24H [facility] Last Admin: 07/17/19 20:26 Dose: 100 mls/hr Metoprolol Tartrate (Lopressor Tab*) 25 mg PO BID [facility] Last Admin: 07/18/19 08:05 Dose: 25 mg Potassium Chloride (Klor Con Er Tab*) 10 meq PO DAILY [facility] Last Admin: 07/18/19 08:05 Dose: 10 meq Tamsulosin HCl (Flomax Cap*) 0.4 mg PO QPM [facility] Last Admin: 07/17/19 16:18 Dose: 0.4 mg Objective Vital Signs: Temp Pulse Resp BP Pulse Ox 97.5 F 66 20 128/55 97 07/18/19 11:15 07/18/19 11:15 07/18/19 11:15 07/18/19 11:15 07/18/19 11:15 Laboratory Results: 07/15/19 10:55 07/17/19 06:56 INR (Anticoag Therapy) 2.26 (0.82-1.09) H 07/18/19 06:11 Total Bilirubin 1.00 mg/dL (0.2-1.0) 07/15/19 10:55 AST 13 U/L (13-39) 07/15/19 10:55 ALT 12 U/L (7-52) 07/15/19 10:55 Alkaline Phosphatase 55 U/L (34-104) 07/15/19 10:55 B-Natriuretic Peptide 41 pg/mL (<=100) 07/15/19 10:55 Total Protein 6.4 g/dL (6.4-8.9) 07/15/19 10:55 Albumin 3.8 g/dL (3.2-5.2) 07/15/19 10:55 Globulin 2.6 g/dL (2-4) 07/15/19 10:55 Albumin/Globulin Ratio 1.5 (1-3) 07/15/19 10:55 TSH 8.92 mcIU/mL (0.34-5.60) H 07/15/19 10:55 07/15/19 10:55 Troponin I 0.01 Assessment/Plan I examined the patient personally. Pt presented with sycope, evidence of SSS, but also known CAD and abnormal stress test, possible inferior ischemia which could effect rhythm too. E. coli UTI could also increase chance of syncope via increase in vagal tone. Awaiting cath results as above. If no intervention needed pacer planned (need to ensure infection cleared). I agree with the above recommendationas.
[2019-07-18] MEDS: Tamsulosin CAP* 0.4 MG PO SCH (16:17)
--- NOTE | 2019-07-18 16:30 | PN ---
Subjective Date of Service: 07/18/19 Interval History: Pt is feeling well. He is bored and getting depressed that he is still here. He denies any lightheadedness. No chest pain or SOB. He has not really walked much except to the bathroom. Objective Active Medications: Acetaminophen (Tylenol Tab*) 650 mg PO Q4H PRN PRN Reason: FEVER,PAIN Aspirin (Aspirin Ec Tab*) 81 mg PO DAILY [facility] Last Admin: 07/18/19 08:05 Dose: 81 mg Atorvastatin Calcium (Lipitor*) 40 mg PO DAILY [facility] Last Admin: 07/18/19 08:05 Dose: 40 mg Calcium Carbonate (Tums*) 500 mg PO Q4H PRN PRN Reason: HEARTBURN Last Admin: 07/15/19 21:38 Dose: 500 mg Finasteride (Proscar Tab*) 5 mg PO DAILY [facility] Last Admin: 07/18/19 08:05 Dose: 5 mg Ceftriaxone Sodium 1 gm/ (Sodium Chloride) 50 mls @ 100 mls/hr IVPB Q24H [facility] Last Admin: 07/17/19 20:26 Dose: 100 mls/hr Metoprolol Tartrate (Lopressor Tab*) 25 mg PO BID [facility] Last Admin: 07/18/19 08:05 Dose: 25 mg Potassium Chloride (Klor Con Er Tab*) 10 meq PO DAILY [facility] Last Admin: 07/18/19 08:05 Dose: 10 meq Tamsulosin HCl (Flomax Cap*) 0.4 mg PO QPM [facility] Last Admin: 07/18/19 16:17 Dose: 0.4 mg Vital Signs - 8 hr 07/18/19 07/18/19 07/18/19 08:47 11:15 15:15 Temperature 97.0 F 97.5 F 98.9 F Pulse Rate 54 66 56 Respiratory 16 20 16 Rate Blood Pressure 131/52 128/55 126/53 (mmHg) O2 Sat by Pulse 96 97 97 Oximetry Oxygen Devices in Use Now: None Appearance: Elderly male lying flat in bed, NAD Eyes: No Scleral Icterus Ears/Nose/Mouth/Throat: Mucous Membranes Moist Respiratory: Symmetrical Chest Expansion and Respiratory Effort, Clear to Auscultation Cardiovascular: NL Sounds; No Murmurs; No JVD, RRR, No Edema Abdominal: NL Sounds; No Tenderness; No Distention Extremities: No Clubbing, Cyanosis Skin: No Nodules or Sclerosis Neurological: Alert and Oriented x 3 Result Diagrams: 07/15/19 10:55 07/17/19 06:56 Microbiology and Other Data: Microbiology 07/15/19 12:53 Urine Culture - Final Urine Escherichia Coli Assess/Plan/Problems-Billing Mr Campbell is an 89 yo M who has a h/o afib on coumadin, CAD, HTN and HLD who presented to the ER with c/o syncope. - Patient Problems (1) Syncope Current Visit: Yes Status: Acute Code(s): R55 - SYNCOPE AND COLLAPSE SNOMED Code(s): 111089586 Comment: ? secondary to SSS. Plan is for pacemaker once catheterization complete. For now monitor on tele. (2) PAF (paroxysmal atrial fibrillation) Current Visit: Yes Status: Acute Code(s): I48.0 - PAROXYSMAL ATRIAL FIBRILLATION SNOMED Code(s): 075917689 Comment: Pt is in NSR currently with PVCs. Continue metoprolol- dose was reduced to 25mg BID due to bradycardia. INR is still therapeutic-holding further doses of coumadin for catheterization tomorrow. INR needs to be <2. No vitamin K per cardiology. (3) HTN (hypertension) Current Visit: Yes Status: Chronic Code(s): I10 - ESSENTIAL (PRIMARY) HYPERTENSION SNOMED Code(s): 84189325 Comment: BP is under good control on reduced dose of metoprolol alone, HCTZ and lisinopril are on hold. (4) CAD (coronary artery disease) Current Visit: Yes Status: Chronic Code(s): I25.10 - ATHSCL HEART DISEASE OF [place] CORONARY ARTERY W/O ANG PCTRS SNOMED Code(s): 53069157 Comment: No c/o chest pain. Pt underwent stress test yesterday which came back abnormal with possible ischemia. Plan for catheterization tomorrow if INR< 2. Continue ASA, lipitor and metoprolol. (5) Hyperlipidemia Current Visit: Yes Status: Chronic Code(s): E78.5 - HYPERLIPIDEMIA, UNSPECIFIED SNOMED Code(s): 79603369 Comment: Continue lipitor. (6) BPH (benign prostatic hypertrophy) Current Visit: Yes Status: Chronic Code(s): N40.0 - BENIGN PROSTATIC HYPERPLASIA WITHOUT LOWER URINRY TRACT SYMP SNOMED Code(s): 412636833 Comment: Continue flomax and proscar. (7) GERD (gastroesophageal reflux disease) Current Visit: Yes Status: Acute Code(s): K21.9 - GASTRO-ESOPHAGEAL REFLUX DISEASE WITHOUT ESOPHAGITIS SNOMED Code(s): 143065682 Comment: Continue omeprazole. (8) DVT prophylaxis Current Visit: Yes Status: Acute Onset Date: 08/10/14 Code(s): BJP9601 - SNOMED Code(s): 335045733 Comment: therapeutic INR (9) Full code status Current Visit: Yes Status: Acute Code(s): Z78.9 - OTHER SPECIFIED HEALTH STATUS SNOMED Code(s): 376123531
[2019-07-18] MEDS: cefTRIAXone(*) 1 GM in NS 0.9% 50 ML* 50 ML IVPB SCH (21:48)
[2019-07-19 07:42] LABS: INR 1.67 (0.82-1.09)
[2019-07-19] MEDS: Finasteride TAB* 5 MG PO SCH (08:29)
[2019-07-19] MEDS: Atorvastatin* 40 MG TAB PO SCH (08:29)
[2019-07-19] MEDS: Aspirin EC TAB* 81 MG TAB.EC PO SCH (08:29)
[2019-07-19] MEDS: Metoprolol Tartrate TAB* 25 MG PO SCH ×2 (08:29→21:01)
[2019-07-19] MEDS: Potassium Chlor TAB* 10 MEQ TAB.ER PO SCH (08:29)
[2019-07-19 11:26] LABS: ABS Basophils 0.1 10^3/ul (0-0.2); ABS Eosinophils 0.2 10^3/ul (0-0.6); ABS Monocytes 0.7 10^3/ul (0-0.8); ABS Neutrophils 3.1 10^3/ul (1.5-7.7); Hematocrit 41 % (42-52); Hemoglobin 14.2 g/dL (14.0-18.0); Lymphocyte % 20.7 %; Mean Corpuscular HGB Conc 35 g/dL (31-36); Mean Corpuscular Hemoglobin 32 pg (27-31); Mean Corpuscular Volume 92 fL (80-94); Mean Platelet Volume 8.4 fL (7.4-10.4); Nucleated Red Blood Cells % 0.1; Platelet Count 158 10^3/uL (150-450); Red Blood Count 4.45 10^6 /uL (4.18-5.48); Red Cell Distribution Width 13 % (10-15); White Blood Count 5.1 10^3/uL (3.5-10.8)
[2019-07-19 11:55] LABS: Calcium 8.6 mg/dL (8.6-10.3); Magnesium 1.8 mg/dL (1.9-2.7)
[2019-07-19 12:01] LABS: BUN/Creatinine Ratio 23.7 (8-20); EGFR African American 92.6 (>60); EGFR Non-African American 76.5 (>60)
[2019-07-19] MEDS ORDERED: Magnesium Sulfate 1 GM IV* 1 GM/100 ML BAG IV ONE (14:15)
--- NOTE | 2019-07-19 14:29 | PN ---
Subjective Date of Service: 07/19/19 Interval History: Patient resting in bed on assessment. Reports he feels well, but is depressed because he is still hospitalized. Reports he has been walking to the bathroom and on the unit without difficulty. No symptoms with position changes or ambulation. Denies dizziness, syncope/near syncope, cp, sob, nausea, vomiting. 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[employer] Finasteride (Proscar Tab*) 5 mg PO DAILY [facility] Last Admin: 07/19/19 08:29 Dose: 5 mg Ceftriaxone Sodium 1 gm/ (Sodium Chloride) 50 mls @ 100 mls/hr IVPB Q24H [facility] Last Admin: 07/18/19 21:48 Dose: 100 mls/hr Sodium Chloride (Ns 0.9% 1000 Ml) 1,000 mls @ 75 mls/hr IV .per rate [facility] Magnesium Sulfate/Dextrose (Magnesium Sulfate 1 Gm Iv*) 1 gm in 100 mls @ 200 mls/hr IV ONCE ONE Stop: 07/19/19 14:44 Last Admin: 07/19/19 14:20 Dose: 200 mls/hr Metoprolol Tartrate (Lopressor Tab*) 25 mg PO BID [facility] Last Admin: 07/19/19 08:29 Dose: 25 mg Potassium Chloride (Klor Con Er Tab*) 10 meq PO DAILY [facility] Last Admin: 07/19/19 08:29 Dose: 10 meq Tamsulosin HCl (Flomax Cap*) 0.4 mg PO QPM [facility] Last Admin: 07/18/19 16:17 Dose: 0.4 mg Vital Signs - 8 hr 07/19/19 07/19/19 07/19/19 07:15 08:00 11:15 Temperature 97.5 F 97.7 F Pulse Rate 65 58 Respiratory 20 18 20 Rate Blood Pressure 135/71 127/69 (mmHg) O2 Sat by Pulse 95 97 Oximetry Oxygen Devices in Use Now: None Appearance: Comfortable, NAD Eyes: No Scleral Icterus Ears/Nose/Mouth/Throat: Clear Oropharnyx, Mucous Membranes Moist Neck: NL Appearance and Movements; NL JVP Respiratory: Symmetrical Chest Expansion and Respiratory Effort, Clear to Auscultation Cardiovascular: NL Sounds; No Murmurs; No JVD, RRR, No Edema Abdominal: NL Sounds; No Tenderness; No Distention Lymphatic: No Cervical Adenopathy Extremities: No Clubbing, Cyanosis Skin: No Rash or Ulcers Neurological: Alert and Oriented x 3 Nutrition: Taking PO's Result Diagrams: 07/19/19 07:11 07/19/19 07:11 Additional Lab and Data: Laboratory Results - last 24 hr 07/19/19 07/19/19 07/19/19 07:11 07:11 07:14 WBC 5.1 RBC 4.45 Hgb 14.2 Hct 41 L MCV 92 MCH 32 H MCHC 35 RDW 13 Plt Count 158 MPV 8.4 Neut % (Auto) 61.4 Lymph % (Auto) 20.7 [place] % (Auto) 13.5 Eos % (Auto) 3.0 Baso % (Auto) 1.4 Absolute Neuts (auto) 3.1 Absolute Lymphs (auto) 1.0 Absolute Monos (auto) 0.7 Absolute Eos (auto) 0.2 Absolute Basos (auto) 0.1 Absolute Nucleated RBC 0.0 Nucleated RBC % 0.1 INR (Anticoag Therapy) 1.67 H APTT Sodium 140 Potassium 4.0 Chloride 106 Carbon Dioxide 28 Anion Gap 6 BUN 22 Creatinine 0.93 Est GFR ( Amer) 92.6 Est GFR (Non-Af Amer) 76.5 BUN/Creatinine Ratio 23.7 H Glucose 105 H Calcium 8.6 Magnesium 1.8 L Blood Type Antibody Screen 07/19/19 07/19/19 09:36 09:36 WBC RBC Hgb Hct MCV MCH MCHC RDW Plt Count MPV Neut % (Auto) Lymph % (Auto) [place] % (Auto) Eos % (Auto) Baso % (Auto) Absolute Neuts (auto) Absolute Lymphs (auto) Absolute Monos (auto) Absolute Eos (auto) Absolute Basos (auto) Absolute Nucleated RBC Nucleated RBC % INR (Anticoag Therapy) APTT 46.1 H Sodium Potassium Chloride Carbon Dioxide Anion Gap BUN Creatinine Est GFR ( Amer) Est GFR (Non-Af Amer) BUN/Creatinine Ratio Glucose Calcium Magnesium Blood Type O Positive Antibody Screen Negative Microbiology and Other Data: Microbiology 07/15/19 12:53 Urine Culture - Final Urine Escherichia Coli EKG Data: Sinus with occasional dre in 50s Assess/Plan/Problems-Billing Mr Campbell is an 89 yo M who has a h/o afib on coumadin, CAD, HTN and HLD who presented to the ER with c/o syncope. - Patient Problems (1) Syncope Comment: - No dizziness, syncope or near syncope since admission. - Likely secondary to SSS. - Possible pacemaker once catheterization complete. - Cont to monitor on tele. (2) PAF (paroxysmal atrial fibrillation) Comment: - Sinus Rhythm and occasional Sinus Dre in 50s on tele - Continue metoprolol at reduced dose of 25mg BID - Holding Coumadin to get INR <2 for cath - No vitamin K per cardiology. (3) CAD (coronary artery disease) Comment: - No chest pain or other associated symptoms. - Stress test was abnormal with possible ischemia. - Plan for catheterization tomorrow. Was on hold as we waited for INR<2. C - Continue ASA, lipitor and metoprolol. (4) GERD (gastroesophageal reflux disease) Comment: - No symptoms - Continue omeprazole. (5) BPH (benign prostatic hypertrophy) Comment: - No urinary symptoms - Continue flomax and proscar. (6) HTN (hypertension) Comment: - BP wnl - Currently on only reduced dose of metoprolol alone - Home HCTZ and lisinopril are on hold. (7) Hyperlipidemia Comment: - Continue lipitor. (8) Urinary tract infection Comment: - Urine grew Ecoli and patient was started on Ceftriaxone and has received 4 days. Continue as patient may be receiving pacer maker in near future (9) Hypothyroid Comment: - TSH slightly elevated on admission and patient was started on Synthroid which was later d/c'd as elevated TSH is likely sick thyroid. Will need repeat thryoid studies in 4 to 6 weeks (10) Full code status (11) DVT prophylaxis Comment: - SCDs and Ambulation - Holding Coumadin for cath Attending: Melissa Gutierrez
[2019-07-19] MEDS: Tamsulosin CAP* 0.4 MG PO SCH (16:05)
[2019-07-19] MEDS: cefTRIAXone(*) 1 GM in NS 0.9% 50 ML* 50 ML IVPB SCH (21:01)
[2019-07-20] MEDS ORDERED: NS 0.9% 1000 ML** 1,000 ML IV SCH (06:00)
[2019-07-20 06:43] LABS: INR 1.43 (0.82-1.09)
[2019-07-20] MEDS ORDERED: diPHENhydraMINE PO* 25 MG PO PRN (07:00)
[2019-07-20] MEDS ORDERED: Diazepam TAB(*) 5 MG PO PRN (07:00)
[2019-07-20] MEDS ORDERED: fentaNYL* 50 MCG/ML 2 ML VIAL (100 MCG VIAL) ONE (07:59)
[2019-07-20] MEDS ORDERED: Midazolam* 1 MG/ML 5 ML VIAL (5 MG) ONE (07:59)
[2019-07-20] MEDS ORDERED: Heparin 2 UNITS/ML IVPREMIX* 2,000 ML IV ONE (08:00)
[2019-07-20] MEDS ORDERED: nitroGLYCERIN DRIP* 25,000 MCG/250 ML BTL ONE (08:00)
[2019-07-20] MEDS ORDERED: Lidocaine 1% INJ* 10 MG/ML 30 ML SDV ONE (08:00)
[2019-07-20] MEDS ORDERED: Iohexol 350 (CONTRAST) 200 ML MDV IV ONE (08:00)
[2019-07-20] MEDS ORDERED: Heparin(*) 1000 UNIT/ML 10 ML VIAL CATH LAB IV ONE (08:00)
[2019-07-20] MEDS ORDERED: VERAPAMIL 2.5 MG/ML 2 ML VIAL ** 5 mg/2 ml ONE (08:00)
[2019-07-20] MEDS: Atorvastatin* 40 MG TAB PO SCH (08:03)
[2019-07-20] MEDS: Aspirin EC TAB* 81 MG TAB.EC PO SCH (08:03)
[2019-07-20] MEDS: Finasteride TAB* 5 MG PO SCH (08:04)
[2019-07-20] MEDS: Metoprolol Tartrate TAB* 25 MG PO SCH ×3 (08:04→19:46)
[2019-07-20] MEDS: Potassium Chlor TAB* 10 MEQ TAB.ER PO SCH (08:04)
--- NOTE | 2019-07-20 12:05 | PN ---
Subjective Date of Service: 07/20/19 Interval History: f/u e.coli uti, syncope patient feels well telemetry reviewed, benign all week on lower dose beta-delbert cardiac catheterization today no obstructive cad Medications Active Medications: Acetaminophen (Tylenol Tab*) 650 mg PO Q4H PRN PRN Reason: FEVER,PAIN Aspirin (Aspirin Ec Tab*) 81 mg PO DAILY [facility] Last Admin: 07/20/19 08:03 Dose: 81 mg Atorvastatin Calcium (Lipitor*) 40 mg PO DAILY [facility] Last Admin: 07/20/19 08:03 Dose: 40 mg Calcium Carbonate (Tums*) 500 mg PO Q4H PRN PRN Reason: HEARTBURN Last Admin: 07/15/19 21:38 Dose: 500 mg Diazepam (Valium Tab(*)) 2.5 mg PO ONCE PRN PRN 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[employer] Diphenhydramine HCl (Benadryl Po*) 25 mg PO ONCE PRN PRN 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[employer] Finasteride (Proscar Tab*) 5 mg PO DAILY [facility] Last Admin: 07/20/19 08:04 Dose: 5 mg Ceftriaxone Sodium 1 gm/ (Sodium Chloride) 50 mls @ 100 mls/hr IVPB Q24H [facility] Last Admin: 07/19/19 21:01 Dose: 100 mls/hr Sodium Chloride (Ns 0.9% 1000 Ml) 1,000 mls @ 75 mls/hr IV .per rate [facility] Last Admin: 07/20/19 06:19 Dose: 75 mls/hr Metoprolol Tartrate (Lopressor Tab*) 25 mg PO BID [facility] Last Admin: 07/20/19 08:04 Dose: 25 mg Potassium Chloride (Klor Con Er Tab*) 10 meq PO DAILY [facility] Last Admin: 07/20/19 08:04 Dose: 10 meq Tamsulosin HCl (Flomax Cap*) 0.4 mg PO QPM [facility] Last Admin: 07/19/19 16:05 Dose: 0.4 mg Objective Vital Signs: Temp Pulse Resp BP Pulse Ox 96.7 F 50 16 136/60 96 07/20/19 09:46 07/20/19 11:15 07/20/19 11:15 07/20/19 11:03 07/20/19 11:15 Oxygen Devices in Use Now: None Appearance: nad pleasant Eyes: No Scleral Icterus, PERRLA Ears/Nose/Mouth/Throat: Mucous Membranes Moist Neck: NL Appearance and Movements; NL JVP, Trachea Midline Respiratory: Symmetrical Chest Expansion and Respiratory Effort, Clear to Auscultation Cardiovascular: No Edema, - - rrr, soft murmur Extremities: No Edema Neurological: Alert and Oriented x 3 Lines/Tubes/Other Access: Clean, Dry and Intact Peripheral IV Laboratory Results: 07/19/19 07:11 07/19/19 07:11 INR (Anticoag Therapy) 1.43 (0.82-1.09) H 07/20/19 06:18 APTT 46.1 seconds (26.0-38.0) H 07/19/19 09:36 Total Bilirubin 1.00 mg/dL (0.2-1.0) 07/15/19 10:55 AST 13 U/L (13-39) 07/15/19 10:55 ALT 12 U/L (7-52) 07/15/19 10:55 Alkaline Phosphatase 55 U/L (34-104) 07/15/19 10:55 B-Natriuretic Peptide 41 pg/mL (<=100) 07/15/19 10:55 Total Protein 6.4 g/dL (6.4-8.9) 07/15/19 10:55 Albumin 3.8 g/dL (3.2-5.2) 07/15/19 10:55 Globulin 2.6 g/dL (2-4) 07/15/19 10:55 Albumin/Globulin Ratio 1.5 (1-3) 07/15/19 10:55 TSH 8.92 mcIU/mL (0.34-5.60) H 07/15/19 10:55 07/15/19 10:55 Troponin I 0.01 EKG Data: ekg on admission: sinus rhythm 50 bpm, borderline 1 avb Assessment/Plan continue UTI treatment does not want to wait until next week for pacemaker, can change warfarin to noac , continue reduced dose of BB and be arranged as an outpatient.
--- NOTE | 2019-07-20 13:43 | CATH ---
CC: Dr. Jem Driver, [facility]; Dr. Esvin Tristan * CARDIAC CATHETERIZATION REPORT: DATE OF PROCEDURE: 07/20/19 - ROOM #448 INDICATION FOR THE PROCEDURE: Asked by Dr. Odell Ritchie to perform diagnostic coronary arteriography to rule out the presence of significant disease, particularly in the right coronary artery in light of an exercise nuclear stress test suggesting reversible ischemia to the inferior wall with prior history of a stent placed in both the mid right coronary artery and the mid LAD in 2008. CONSENT: The patient was interviewed and examined on the floor of the hospital with his family member present. The risks and benefits were explained. He understood them and wished to proceed. PROCEDURE: Coronary arteriography via the right radial artery. APPROACH: The right radial artery was assessed by ultrasound on the floor of the hospital and found to be acceptable for an approach. PRE-CARDIAC CATHETERIZATION LABORATORY RESULTS: The hemoglobin and hematocrit were 14.2 and 41 with a platelet count of 158,000, BUN was 22, creatinine 0.93. Sodium 140, potassium 4.0, chloride 106, bicarb 28. INR was 1.43 (of note the patient had been on Coumadin but it has been held several days in order for the INR to drop down to perform the procedure). Troponin was 0.01. EQUIPMENT UTILIZED: 1. Right radial artery sheath with a 6-Vincentian Glidesheath Slender. 2. The diagnostic guidewires included a 260 length Chavez curved guidewire and a 145 length Wholey wire to negotiate tortuosity within the forearm area as well as in the subclavian into the brachiocephalic artery. 3. Diagnostic coronary catheter utilized was a 5-Vincentian TIG4 catheter. 4. The closure device utilized was a regular length Vasc Band closure device. MEDICATIONS GIVEN DURING THE PROCEDURE: The patient received a radial artery cocktail including 3000 units of heparin, 300 mcg of nitroglycerin, and 3 mg of verapamil. He received 1% lidocaine locally and had already received aspirin prior to coming to the tutorial laboratory supervisor. DESCRIPTION OF PROCEDURE: The patient was brought to the cardiovascular laboratory where a formal time-out was performed. He was prepped and draped in sterile fashion, and under ultrasound guidance, right radial artery was cannulated, sheath was placed. Diagnostic coronary arteriography was performed and the films were reviewed. Following this, the catheter was removed as well as the sheath and hemostasis was obtained with Vasc Band, the reverse Barbeau was a B. The total contrast used was 60 cc of Omnipaque dye. The radiation exposure included 5.7 minutes of fluoro time. The air kerma radiation was 521 milligray. The DAP radiation was 3339 microgray per meter square. RESULTS: CORONARY ARTERIOGRAPHY: A. Left coronary artery. 1. Left main - the left main artery was noted to have mild calcium seen within it as well as in the proximal to mid LAD and proximal circumflex. The left main itself had minimal narrowing noted. 2. Left anterior descending artery. The left anterior descending artery supplied a high bifurcating first diagonal branch followed by a mid diagonal branch. There were mild luminal irregularity seen throughout the course of the vessel. Of note, the area of prior stent placement in the mid LAD had no evidence of significant in- stent restenosis. Of note, the LAD extended to the apical region, but not well onto the distal inferior wall. The ostium of the left anterior descending artery had a narrowing of approximately 35%. The mid portion of left anterior descending artery had areas of luminal reduction of approximately 30% to 35% with calcification seen. The distal portion of the first diagonal branch is larger branch, had 35% to 40% narrowing noted. 3. Circumflex artery, supplying a very thin trifurcation marginal/first obtuse marginal branch followed by moderate size bifurcating obtuse marginal branch. There was mild luminal irregularity of 25% to 30% seen throughout the course of this vessel. B. Right coronary artery - a dominant vessel supplying the PDA and multiple posterior left ventricular branches. There is calcium seen in the proximal and mid and distal portion of the vessel. The area of prior stenting appeared to have mild in-stent restenosis of approximately 30% to 35% without significant obstruction. The posterior descending artery had a 45% to 50% lesion proximal to mid narrowing noted in a somewhat small caliber vessel barely 2 mm. The continuation of the right coronary artery supplied 2 small posterior left ventricular branches followed by moderate one, which extended to the posteroapical region followed by another small posterior left ventricular branch. There was no focal significant obstruction seen within those vessels. OVERALL ASSESSMENT: Moderate coronary artery disease in proximal portion of a somewhat small caliber right-sided posterior left ventricular branch without critical stenosis seen. Patent stents to both the mid right coronary artery and the mid left anterior descending artery. No critical focal stenosis identified on current study. These results were shared with Dr. Florentino Villatoro, the director of enterprise strategy rounding in the hospital on the day of the cardiac catheterization. This information will also be sent to Dr. Driver, the patient's outpatient primary director of enterprise strategy. I did personally spoke to the hospitalist GERALDINE Vargas, regarding the patient. The issue of whether to restart Coumadin versus a NOAC agent will be made by Dr. Villatoro and the hospitalist, as well as the decision of timing of possible pacemaker. [id number]/[facility] #: [id number] MTDD
--- NOTE | 2019-07-20 16:12 | PN ---
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 Dr Villatoro updated patient on cath results and discussed plan going forward. Patient initially wanted to go home and come back for pacemaker. Patient visited on at noon. Reports he does not feel safe going home giving syncopal episode and the fact that he lives alone, therefore, he would like to stay til tuesday for pacemaker placement. Patient reports he has not had any cp, sob, near syncope, palpitations, dizziness, nausea, vomiting. Reports he is feeling overall well. Objective Active Medications: Acetaminophen (Tylenol Tab*) 650 mg PO Q4H PRN PRN Reason: FEVER,PAIN Aspirin (Aspirin Ec Tab*) 81 mg PO DAILY [facility] Last Admin: 07/20/19 08:03 Dose: 81 mg Atorvastatin Calcium (Lipitor*) 40 mg PO DAILY [facility] Last Admin: 07/20/19 08:03 Dose: 40 mg Calcium Carbonate (Tums*) 500 mg PO Q4H PRN PRN Reason: HEARTBURN Last Admin: 07/15/19 21:38 Dose: 500 mg Diazepam (Valium Tab(*)) 2.5 mg PO ONCE PRN PRN Reason: call center support representative to Stabilizer Operator Diphenhydramine HCl (Benadryl Po*) 25 mg PO ONCE PRN PRN Reason: call center support representative to Stabilizer Operator Enoxaparin Sodium (Lovenox(*)) 80 mg SUBCUT Q12H [facility] Stop: 07/22/19 07:01 Finasteride (Proscar Tab*) 5 mg PO DAILY [facility] Last Admin: 07/20/19 08:04 Dose: 5 mg Ceftriaxone Sodium 1 gm/ (Sodium Chloride) 50 mls @ 100 mls/hr IVPB Q24H [facility] Last Admin: 07/19/19 21:01 Dose: 100 mls/hr Metoprolol Tartrate (Lopressor Tab*) 25 mg PO BID [facility] Last Admin: 07/20/19 08:04 Dose: 25 mg Potassium Chloride (Klor Con Er Tab*) 10 meq PO DAILY [facility] Last Admin: 07/20/19 08:04 Dose: 10 meq Tamsulosin HCl (Flomax Cap*) 0.4 mg PO QPM [facility] Last Admin: 07/19/19 16:05 Dose: 0.4 mg Vital Signs - 8 hr 07/20/19 07/20/19 07/20/19 09:16 09:17 09:30 Temperature Pulse Rate 50 Respiratory 15 17 14 Rate Blood Pressure 133/75 (mmHg) O2 Sat by Pulse 90 Oximetry 07/20/19 07/20/19 07/20/19 09:33 09:45 09:46 Temperature 96.7 F Pulse Rate 50 56 Respiratory 17 14 Rate Blood Pressure 110/65 (mmHg) O2 Sat by Pulse 96 96 Oximetry 07/20/19 07/20/19 07/20/19 09:48 10:00 10:03 Temperature Pulse Rate 52 55 Respiratory 16 14 16 Rate Blood Pressure 127/61 116/73 (mmHg) O2 Sat by Pulse 96 96 Oximetry 07/20/19 07/20/19 07/20/19 10:15 10:18 10:30 Temperature Pulse Rate 58 51 55 Respiratory 27 16 14 Rate Blood Pressure 137/62 (mmHg) O2 Sat by Pulse 87 95 97 Oximetry 07/20/19 07/20/19 07/20/19 10:33 10:45 10:48 Temperature Pulse Rate 53 52 55 Respiratory 18 18 18 Rate Blood Pressure 122/64 129/65 (mmHg) O2 Sat by Pulse 96 96 96 Oximetry 07/20/19 07/20/19 07/20/19 11:00 11:03 11:15 Temperature Pulse Rate 49 49 50 Respiratory 16 14 16 Rate Blood Pressure 136/60 (mmHg) O2 Sat by Pulse 96 96 96 Oximetry 07/20/19 15:15 Temperature 97.1 F Pulse Rate 70 Respiratory 20 Rate Blood Pressure 141/62 (mmHg) O2 Sat by Pulse 97 Oximetry Oxygen Devices in Use Now: None Appearance: Comfortable, NAD Eyes: No Scleral Icterus Ears/Nose/Mouth/Throat: Clear Oropharnyx, Mucous Membranes Moist Neck: NL Appearance and Movements; NL JVP Respiratory: Symmetrical Chest Expansion and Respiratory Effort, Clear to Auscultation Cardiovascular: NL Sounds; No Murmurs; No JVD, RRR, No Edema Abdominal: NL Sounds; No Tenderness; No Distention Extremities: - - Dressing to right wrist benign. Skin: No Rash or Ulcers Neurological: Alert and Oriented x 3 Nutrition: Taking PO's Result Diagrams: 07/19/19 07:11 07/19/19 07:11 Additional Lab and Data: Laboratory Results - last 24 hr 07/20/19 06:18 INR (Anticoag Therapy) 1.43 H Microbiology and Other Data: Microbiology 07/15/19 12:53 Urine Culture - Final Urine Escherichia Coli EKG Data: Sinus rhythm and occasional sinus arrhythmia Assess/Plan/Problems-Billing Mr Campbell is an 89 yo M who has a h/o afib on coumadin, CAD, HTN and HLD who presented to the ER with c/o syncope. - Patient Problems (1) Syncope Comment: - No recurrence of symptoms since admission - Pacemaker Tuesday - Cardiac Cath revealed no obstructive CAD - Cont to monitor on tele. (2) PAF (paroxysmal atrial fibrillation) Comment: - Sinus Rhythm and occasional Sinus Arrhythmia - Continue metoprolol at reduced dose of 25mg BID - Lovenox starting tomorrow (discussed with Dr Villatoro) with possible transition to NOAC after pacemaker (3) CAD (coronary artery disease) Comment: - Cardiac cath revealed no obstructive CAD - No chest pain or other associated symptoms. - Continue ASA, lipitor and metoprolol. (4) GERD (gastroesophageal reflux disease) Comment: - No symptoms - Continue omeprazole. (5) BPH (benign prostatic hypertrophy) Comment: - No new urinary symptoms. Reports he always has some incontinence - Continue flomax and proscar. (6) HTN (hypertension) Comment: - BP wnl - Currently on only reduced dose of metoprolol alone - Home HCTZ and lisinopril are on hold. (7) Hyperlipidemia Comment: - Continue lipitor. (8) Urinary tract infection Comment: - Urine grew Ecoli and patient was started on Ceftriaxone and has received 5 days. - Continue Ceftriaxone. Will have received 7 days by Tuesday. - Can be discharged on usual oral abx after pacemaker (9) Hypothyroid Comment: - TSH slightly elevated on admission and patient was started on Synthroid which was later d/c'd as elevated TSH is likely sick thyroid. Will need repeat thryoid studies in 4 to 6 weeks (10) Full code status (11) DVT prophylaxis Comment: - SCDs and Ambulation - Lovenox starting tomorrow Attending: Melissa Gutierrez
[2019-07-20] MEDS: Tamsulosin CAP* 0.4 MG PO SCH (17:05)
[2019-07-20] MEDS: cefTRIAXone(*) 1 GM in NS 0.9% 50 ML* 50 ML IVPB SCH (19:36)
[2019-07-21 05:52] LABS: ABS Basophils 0.1 10^3/ul (0-0.2); ABS Eosinophils 0.3 10^3/ul (0-0.6); ABS Lymphocytes 1.2 10^3/ul (1.0-4.8); ABS Monocytes 0.7 10^3/ul (0-0.8); ABS Neutrophils 3.3 10^3/ul (1.5-7.7); Eosinophil % 4.5 %; Hematocrit 37 % (42-52); Hemoglobin 13.4 g/dL (14.0-18.0); Lymphocyte % 22.1 %; Mean Corpuscular HGB Conc 36 g/dL (31-36); Mean Corpuscular Hemoglobin 33 pg (27-31); Mean Corpuscular Volume 91 fL (80-94); Mean Platelet Volume 7.8 fL (7.4-10.4); Platelet Count 145 10^3/uL (150-450); Red Blood Count 4.13 10^6 /uL (4.18-5.48); Red Cell Distribution Width 13 % (10-15); White Blood Count 5.5 10^3/uL (3.5-10.8)
[2019-07-21 06:14] LABS: Calcium 8.4 mg/dL (8.6-10.3); Magnesium 1.9 mg/dL (1.9-2.7); Potassium 3.7 mmol/L (3.5-5.0)
[2019-07-21 06:19] LABS: BUN/Creatinine Ratio 19.8 (8-20); EGFR African American 89.2 (>60); EGFR Non-African American 73.8 (>60)
[2019-07-21] MEDS: Aspirin EC TAB* 81 MG TAB.EC PO SCH (07:29)
[2019-07-21] MEDS: Potassium Chlor TAB* 10 MEQ TAB.ER PO SCH (07:29)
[2019-07-21] MEDS: Enoxaparin(*) 80 MG/0.8 ML SYR SUBCUT SCH ×2 (07:29→19:56)
[2019-07-21] MEDS: Metoprolol Tartrate TAB* 25 MG PO SCH ×2 (07:29→20:11)
[2019-07-21] MEDS: Finasteride TAB* 5 MG PO SCH (07:29)
[2019-07-21] MEDS: Atorvastatin* 40 MG TAB PO SCH (07:29)
[2019-07-21] MEDS ORDERED: Potassium Chlor TAB* 10 MEQ TAB.ER PO ONE (10:27)
[2019-07-21] MEDS ORDERED: Magnesium Oxide TAB* 400 MG PO ONE (10:27)
--- NOTE | 2019-07-21 10:28 | PN ---
Subjective Date of Service: 07/21/19 Interval History: Dr Khan into see patient and assess PCI access site. Dressing also changed per nurse. Patient resting in bed on assessment. Reports he feels well. No dizziness, near syncope, palpitations, cp, sob, nausea, vomiting, fever, chills, urinary symptoms. Objective Active Medications: Acetaminophen (Tylenol Tab*) 650 mg PO Q4H PRN PRN Reason: FEVER,PAIN Aspirin (Aspirin Ec Tab*) 81 mg PO DAILY [facility] Last Admin: 07/21/19 07:29 Dose: 81 mg Atorvastatin Calcium (Lipitor*) 40 mg PO DAILY [facility] Last Admin: 07/21/19 07:29 Dose: 40 mg Calcium Carbonate (Tums*) 500 mg PO Q4H PRN PRN Reason: HEARTBURN Last Admin: 07/15/19 21:38 Dose: 500 mg Diazepam (Valium Tab(*)) 2.5 mg PO ONCE PRN PRN Reason: long winder tender to As400 Administrator Diphenhydramine HCl (Benadryl Po*) 25 mg PO ONCE PRN PRN Reason: long winder tender to As400 Administrator Enoxaparin Sodium (Lovenox(*)) 80 mg SUBCUT Q12H [facility] Stop: 07/22/19 07:01 Last Admin: 07/21/19 07:29 Dose: 80 mg Finasteride (Proscar Tab*) 5 mg PO DAILY [facility] Last Admin: 07/21/19 07:29 Dose: 5 mg Ceftriaxone Sodium 1 gm/ (Sodium Chloride) 50 mls @ 100 mls/hr IVPB Q24H [facility] Last Admin: 07/20/19 19:36 Dose: 100 mls/hr Metoprolol Tartrate (Lopressor Tab*) 25 mg PO BID [facility] Last Admin: 07/21/19 07:29 Dose: 25 mg Potassium Chloride (Klor Con Er Tab*) 10 meq PO DAILY [facility] Last Admin: 07/21/19 07:29 Dose: 10 meq Tamsulosin HCl (Flomax Cap*) 0.4 mg PO QPM [facility] Last Admin: 07/20/19 17:05 Dose: 0.4 mg Vital Signs - 8 hr 07/21/19 07/21/19 07/21/19 03:35 06:40 07:15 Temperature 98.3 F 97.6 F Pulse Rate 61 74 Respiratory 16 18 18 Rate Blood Pressure 117/57 142/64 (mmHg) O2 Sat by Pulse 95 95 Oximetry Oxygen Devices in Use Now: None Appearance: Comfortable, NAD Eyes: No Scleral Icterus Ears/Nose/Mouth/Throat: Clear Oropharnyx, Mucous Membranes Moist Neck: NL Appearance and Movements; NL JVP Respiratory: Symmetrical Chest Expansion and Respiratory Effort, Clear to Auscultation Cardiovascular: NL Sounds; No Murmurs; No JVD, RRR, No Edema Abdominal: NL Sounds; No Tenderness; No Distention Lymphatic: No Cervical Adenopathy Extremities: No Edema Skin: No Rash or Ulcers Neurological: Alert and Oriented x 3 Nutrition: Taking PO's Result Diagrams: 07/21/19 05:35 07/21/19 05:35 Additional Lab and Data: Laboratory Results - last 24 hr 07/21/19 07/21/19 05:35 05:35 WBC 5.5 RBC 4.13 L Hgb 13.4 L Hct 37 L MCV 91 MCH 33 H MCHC 36 RDW 13 Plt Count 145 L MPV 7.8 Neut % (Auto) 59.9 Lymph % (Auto) 22.1 [place] % (Auto) 12.5 Eos % (Auto) 4.5 Baso % (Auto) 1.0 Absolute Neuts (auto) 3.3 Absolute Lymphs (auto) 1.2 Absolute Monos (auto) 0.7 Absolute Eos (auto) 0.3 Absolute Basos (auto) 0.1 Absolute Nucleated RBC 0.0 Nucleated RBC % 0.0 Sodium 140 Potassium 3.7 Chloride 106 Carbon Dioxide 30 Anion Gap 4 BUN 19 Creatinine 0.96 Est GFR ( Amer) 89.2 Est GFR (Non-Af Amer) 73.8 BUN/Creatinine Ratio 19.8 Glucose 99 Calcium 8.4 L Magnesium 1.9 Microbiology and Other Data: Microbiology 07/15/19 12:53 Urine Culture - Final Urine Escherichia Coli EKG Data: Tele: Sinus rhythm and occasional sinus arrhythmia. No significant bradycardia noted. Per RN patient has mild tachycardia (into 120s bpm) when ambulating to bathroom Assess/Plan/Problems-Billing Mr Campbell is an 89 yo M who has a h/o afib on coumadin, CAD, HTN and HLD who presented to the ER with c/o syncope. - Patient Problems (1) Electrolyte abnormality Comment: - K+ 3.7 and Mag 1.9. - Given cardiac hx will provide gentle replacement (2) Syncope Comment: - No syncope, near syncope or dizziness with position change - Pacemaker Tuesday - Cardiac Cath revealed no obstructive CAD - Cont to monitor on tele. (3) PAF (paroxysmal atrial fibrillation) Comment: - Sinus Rhythm and occasional Sinus Arrhythmia. RN reports he can become tachy into 120s when up ambulating but he is asymptomatic - Continue metoprolol at reduced dose of 25mg BID - Lovenox until pacemaker placement (last dose scheduled tuesday morning) with possible transition to OAC after pacemaker (4) CAD (coronary artery disease) Comment: - Cardiac cath revealed no obstructive CAD - No chest pain or other associated symptoms. - Continue ASA, lipitor and metoprolol. (5) GERD (gastroesophageal reflux disease) Comment: - No symptoms - Continue omeprazole. (6) BPH (benign prostatic hypertrophy) Comment: - No new urinary symptoms. Reports he always has some incontinence - Continue flomax and proscar. (7) HTN (hypertension) Comment: - Mildly elevated. May need BP adjustment after pacemaker placement - Currently on only reduced dose of metoprolol alone - Home HCTZ and lisinopril are on hold. (8) Hyperlipidemia Comment: - Continue lipitor. (9) Urinary tract infection Comment: - Urine grew Ecoli and patient was started on Ceftriaxone and has received 5 days. - Continue Ceftriaxone. Will have received 7 days by Tuesday. (10) Hypothyroid Comment: - TSH slightly elevated on admission and patient was started on Synthroid which was later d/c'd as elevated TSH is likely sick thyroid. Will need repeat thryoid studies in 4 to 6 weeks (11) Full code status (12) DVT prophylaxis Comment: - Lovenox
--- NOTE | 2019-07-21 11:28 | PN ---
Subjective Date of Service: 07/21/19 - CC: LOC Interval History: No c/o post cath. No further LOC, dizziness. No urinary c/o (but pt had been unaware of UTI on arrival). 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 Enoxaparin Sodium (Lovenox(*)) 80 mg SUBCUT Q12H [facility] Stop: 07/22/19 07:01 Last Admin: 07/21/19 07:29 Dose: 80 mg Finasteride (Proscar Tab*) 5 mg PO DAILY [facility] Last Admin: 07/21/19 07:29 Dose: 5 mg Ceftriaxone Sodium 1 gm/ (Sodium Chloride) 50 mls @ 100 mls/hr IVPB Q24H [facility] Last Admin: 07/20/19 19:36 Dose: 100 mls/hr Metoprolol Tartrate (Lopressor Tab*) 25 mg PO BID [facility] Last Admin: 07/21/19 07:29 Dose: 25 mg Potassium Chloride (Klor Con Er Tab*) 10 meq PO DAILY [facility] Last Admin: 07/21/19 07:29 Dose: 10 meq Tamsulosin HCl (Flomax Cap*) 0.4 mg PO QPM [facility] Last Admin: 07/20/19 17:05 Dose: 0.4 mg Mv-Mn/Folic Acid/Lutein/Nhy771 [Martin Multivit For Men Caplet] 1 tab PO DAILY 12/18 [History Confirmed 07/15/19] Aspirin EC TAB* [Ecotrin EC Low Dose 81 MG*] 81 mg PO DAILY 11/26/16 [History Confirmed 07/15/19] Atorvastatin* [Lipitor 20 MG*] 40 mg PO DAILY 11/26/16 [History Confirmed ] Acetaminophen TAB* [Tylenol TAB*] 650 mg PO Q4H PRN #0 tab 11/28/16 [Rx Confirmed 07/15/19] Metoprolol Tartrate TAB* [Lopressor TAB*] 50 mg PO BID #60 tab 11/28/16 [Rx Confirmed 07/15/19] Finasteride TAB* [Proscar TAB*] 5 mg PO DAILY 06/23/19 [History Confirmed ] Glucosam/Chondr/Collagn/Hyalur [Th Glucosamine/Chondroiti] 2 cap PO DAILY [History Confirmed 07/15/19] Hydrochlorothiazide TAB* [Hydrodiuril TAB*] 25 mg PO DAILY 06/23/19 [History Confirmed 07/15/19] Lisinopril TAB* [Prinivil TAB*] 10 mg PO DAILY 06/23/19 [History Confirmed 07/15] Potassium Chlor TAB* [Klor Con ER TAB*] 10 meq PO DAILY 06/23/19 [History Confirmed 07/15/19] Tamsulosin HCl 0.4 mg PO DAILY 06/23/19 [History Confirmed 07/15/19] Warfarin TAB(*) [Coumadin TAB(*)] 2 mg PO SEE INSTRUCTIONS 06/23/19 [History Confirmed 07/15/19] Warfarin TAB(*) [Coumadin TAB(*)] 3 mg PO SEE INSTRUCTIONS 06/23/19 [History Confirmed 07/15/19] Objective Vital Signs: Temp Pulse Resp BP Pulse Ox 97.6 F 74 18 142/64 95 07/21/19 07:15 07/21/19 07:15 07/21/19 07:15 07/21/19 07:15 07/21/19 07:15 Oxygen Devices in Use Now: None Appearance: nad pleasant, lying in bed. Eyes: No Scleral Icterus, PERRLA Ears/Nose/Mouth/Throat: Mucous Membranes Moist Neck: NL Appearance and Movements; NL JVP, Trachea Midline Respiratory: Symmetrical Chest Expansion and Respiratory Effort, Clear to Auscultation Cardiovascular: RRR, No Edema, - Abdominal: NL Sounds; No Tenderness; No Distention, No Hepatosplenomegaly Extremities: - - Right wrist: bandaid on cath site, no ecymosis or fullness, brisk radial pulse distal to stick. No hematoma. Skin: No Rash or Ulcers Neurological: Alert and Oriented x 3 Lines/Tubes/Other Access: Clean, Dry and Intact Peripheral IV Laboratory Results: 07/21/19 05:35 07/21/19 05:35 INR (Anticoag Therapy) 1.43 (0.82-1.09) H 07/20/19 06:18 APTT 46.1 seconds (26.0-38.0) H 07/19/19 09:36 Total Bilirubin 1.00 mg/dL (0.2-1.0) 07/15/19 10:55 AST 13 U/L (13-39) 07/15/19 10:55 ALT 12 U/L (7-52) 07/15/19 10:55 Alkaline Phosphatase 55 U/L (34-104) 07/15/19 10:55 B-Natriuretic Peptide 41 pg/mL (<=100) 07/15/19 10:55 Total Protein 6.4 g/dL (6.4-8.9) 07/15/19 10:55 Albumin 3.8 g/dL (3.2-5.2) 07/15/19 10:55 Globulin 2.6 g/dL (2-4) 07/15/19 10:55 Albumin/Globulin Ratio 1.5 (1-3) 07/15/19 10:55 TSH 8.92 mcIU/mL (0.34-5.60) H 07/15/19 10:55 07/15/19 10:55 Troponin I 0.01 Diagnostic Imaging: *[facility]* [place] [address] Fax #: [phone] Transthoracic Echocardiogram Patient: Natan Campbell : 1930 Study Date: 07/16/2019 Age: 89 Gender: M HR: 66 bpm Height: 68 in /172.7 cm BSA: 1.87 m^2 Weight: 159.7 lb /72.6 kg BMI: 24.3 kg/m^2 *Tester Equipment: Tiffanie Collins [facility] *Referring Physician: * Comfort TapiaReading Physician: * Odell Ritchie MD Indications: Syncope. History: Coronary artery disease. Risk factors: Hypertension. Dyslipidemia. Labs, prior tests, procedures, and surgery: Catheterization. There was a stenosis which was treated with a stent. Conclusions Summary: - Left ventricle: Systolic function is at the lower limits of normal. The estimated ejection fraction is 50-55%. Wall motion is normal; there are no regional wall motion abnormalities. - Mitral valve: There is trace regurgitation. - Aortic valve: The findings are consistent with mild stenosis. There is mild regurgitation. The mean systolic gradient is 8.0 mm Hg. The valve area by the velocity-time integral method is 1.40 cm^2. The valve area by the peak velocity method is 1.50 cm^2. The regurgitation pressure half-time is 466 ms. - Tricuspid valve: There is trace to mild regurgitation. - Pulmonary arteries: Systolic pressure is mildly increased. - Compared to study of 11/29/16, there is no significant change This report is only to be considered final once signed by the Provider(s) as displayed in the "<Electronically Signed by >" field (s). Absence of a signature indicates the report is in a draft status and still needs to be finalized. In the event this document was created by someone other than the signing Provider, the individual initiating the document will be listed in the "Entered by:" or "Dictated by:" lim. Patient Name: NATAN CAMPBELL Medical Record#: [id number] Ordering Physician: Zaria Broderick NP Acct.#: [id number] : 1930 Age: 89 Sex: M Location: [address] [place] [address]/TELEMETRY Exam Date: 07/17/19 0700 ADM Status: ADM IN Order Information: NUCLEAR CARDIAC STRESS TEST Accession Number: [id number] CPT: 03116 INDICATION: Syncope. Paroxysmal atrial fibrillation. COMPARISON: August 12, 2014 nuclear stress test. TECHNIQUE: #. One day protocol. #. On July 17, 2019: 10.880 mCi of Tc-99m Myoview were administered IV. SPECT images of the heart were obtained. #. On July 17, 2019: Under the direction of Dr. Khan, an exercise stress test was performed. The patient achieved a peak heart rate of 152 bpm, 116 % of the age- predicted maximum. Subsequently, the patient was given an IV injection of 25.030 mCi Tc- 99m Myoview. SPECT images of the heart were obtained and a gated wall motion study was performed. #. Body habitus precluded obtaining CT for attenuation correction. FINDINGS: Gated wall motion images were obtained at stress and demonstrate mild hypokinesia at the septum. The calculated left ventricular ejection fraction is 68 % at stress. Estimated LEFT ventricular end diastolic volume is 49 mL. Transient Ischemic Dilatation (TID) of the left ventricle 0.73. Abnormal is greater than 1.13 to 1.38. Large perfusion defect from the apical through the basilar inferior wall segments significantly greater at stress than rest. No additional LEFT ventricular perfusion abnormalities. IMPRESSION: #. Normal range estimated LEFT ventricular ejection fraction. Mild hypokinesia at the septum. #. While the exam is limited without CT for attenuation correction and the perfusion abnormality at the inferior wall may be secondary to diaphragmatic attenuation the observation that the perfusion defect appears significantly worse at stress than rest is concerning for potential stress-induced ischemia. ASSESSMENT: Intermediate risk based on nuclear portion. Based on imaging criteria from ACC/AHA 2002 Guideline Update for the Management of Patients With Chronic Stable Angina Table 23. Noninvasive Risk Stratification. <Electronically signed by Josue Jacobsen MD in OV> 07/17/19 1136 Dictated By: Josue Jacobsen MD Dictated Date/Time: 07/17/19 1129 Transcribed Date/Time: 07/17/19 1129 Copy to: This report is only to be considered final once signed by the Provider(s) as displayed in the "<Electronically Signed by >" field (s). Absence of a signature indicates the report is in a draft status and still needs to be finalized. In the event this document was created by someone other than the signing Provider, the individual initiating the document will be listed in the "Entered by:" or "Dictated by:" lim. 1 of 2 Cardiac Catheterization Report NATAN CAMPBELL [id number] 07/16/19 The total contrast used was 60 cc of Omnipaque dye. The radiation exposure included 5.7 minutes of fluoro time. The air kerma radiation was 521 milligray. The DAP radiation was 3339 microgray per meter square. RESULTS: CORONARY ARTERIOGRAPHY: A. Left coronary artery. 1. Left main - the left main artery was noted to have mild calcium seen within it as well as in the proximal to mid LAD and proximal circumflex. The left main itself had minimal narrowing noted. 2. Left anterior descending artery. The left anterior descending artery supplied a high bifurcating first diagonal branch followed by a mid diagonal branch. There were mild luminal irregularity seen throughout the course of the vessel. Of note, the area of prior stent placement in the mid LAD had no evidence of significant in- stent restenosis. Of note, the LAD extended to the apical region, but not well onto the distal inferior wall. The ostium of the left anterior descending artery had a narrowing of approximately 35%. The mid portion of left anterior descending artery had areas of luminal reduction of approximately 30% to 35% with calcification seen. The distal portion of the first diagonal branch is larger branch, had 35% to 40% narrowing noted. 3. Circumflex artery, supplying a very thin trifurcation marginal/first obtuse marginal branch followed by moderate size bifurcating obtuse marginal branch. There was mild luminal irregularity of 25% to 30% seen throughout the course of this vessel. B. Right coronary artery - a dominant vessel supplying the PDA and multiple posterior left ventricular branches. There is calcium seen in the proximal and mid and distal portion of the vessel. The area of prior stenting appeared to have mild in-stent restenosis of approximately 30% to 35% without significant obstruction. The posterior descending artery had a 45% to 50% lesion proximal to mid narrowing noted in a somewhat small caliber vessel barely 2 mm. The continuation of the right coronary artery supplied 2 small posterior left ventricular branches followed by moderate one, which extended to the posteroapical region followed by another small posterior left ventricular branch. There was no focal significant obstruction seen within those vessels. OVERALL ASSESSMENT: Moderate coronary artery disease in proximal portion of a somewhat small caliber right-sided posterior left ventricular branch without critical stenosis seen. Patent stents to both the mid right coronary artery and the mid left anterior descending artery. No critical focal stenosis identified on current study. These results were shared with Dr. Folrentino Villatoro, the cloth handler rounding in the hospital on the day of the cardiac catheterization. This information will also be sent to Dr. Driver, the patient's outpatient primary cloth handler. I did personally spoke to the hospitalist GERALDINE Vargas, regarding the patient. The issue of whether to restart Coumadin versus a NOAC agent will be made by Dr. Villatoro and the hospitalist, as well as the decision of timing of possible pacemaker. [id number]/[facility] #: [id number] Mario Khan MD Dictated Date/Time: 07/20/19 1220 Transcribed Date/Time 07/20/19 1317 Copy to: This report is only to be considered final once signed by the Provider(s) as displayed in the "<Electronically Signed by >" field (s). Absence of a signature indicates the report is in a draft status and still needs to be finalized. In the event this document was created by someone other than the signing Provider, the individual initiating the document will be listed in the "Entered by:" or "Dictated by:" lim. 2 of 3 EKG Data: Tele: NSR, rate increases standing/activity. No significant bradycardia/pauses. Assessment/Plan 89 yo who presented with syncope sitting at a restaurant, LOC x 10 minutes, found w/sinus bradycardia, UTI, CAD non obstructive on cath. Hx of distant syncope associated with AFib. Syncope: -recurrent, possibly related to SSS, lopressor dose, UTI and vagal tone, but no prodrome and has occurred several times. -Pacer implant scheduled Tuesday. -On lower BB dose doing well for now. CAD: -As per hospitalist note, CAD risks addressed. -Can fine tune meds for BP after pacer implanted. UTI: -s/p abx, should not impact implant/place at infectious risk. PAF: -On lovenox until pacer, then option of resuming Coumadin vs OAC.
[2019-07-21] MEDS ORDERED: Warfarin TAB(*) 2 MG PO SCH (17:00)
[2019-07-21] MEDS: Tamsulosin CAP* 0.4 MG PO SCH (17:12)
[2019-07-21] MEDS: cefTRIAXone(*) 1 GM in NS 0.9% 50 ML* 50 ML IVPB SCH (19:50)
[2019-07-22] MEDS: Enoxaparin(*) 80 MG/0.8 ML SYR SUBCUT SCH (07:31)
[2019-07-22] MEDS: Finasteride TAB* 5 MG PO SCH (08:29)
[2019-07-22] MEDS: Atorvastatin* 40 MG TAB PO SCH (08:30)
[2019-07-22] MEDS: Potassium Chlor TAB* 10 MEQ TAB.ER PO SCH (08:30)
[2019-07-22] MEDS: Aspirin EC TAB* 81 MG TAB.EC PO SCH (08:30)
[2019-07-22] MEDS: Metoprolol Tartrate TAB* 25 MG PO SCH ×2 (08:30→21:47)
[2019-07-22] MEDS: Tamsulosin CAP* 0.4 MG PO SCH (17:32)
[2019-07-22] MEDS: cefTRIAXone(*) 1 GM in NS 0.9% 50 ML* 50 ML IVPB SCH (18:31)
--- NOTE | 2019-07-22 18:35 | PN ---
Subjective Date of Service: 07/22/19 Interval History: Patient stated that he felt fine today. Denied lightheadedness, dizziness, palpitations, chest pain, abdominal pain, nausea, vomiting, issues moving bowel/ bladder. After initial assessment, he did have a 6 beat run of V-tach through which he was asymptomatic. 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 Diazepam (Valium Tab(*)) 5 mg PO ONCE ONE Stop: 07/23/19 08:01 Diphenhydramine HCl (Benadryl Po*) 25 mg PO ONCE PRN PRN 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: 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 Finasteride (Proscar Tab*) 5 mg PO DAILY [facility] Last Admin: 07/22/19 08:29 Dose: 5 mg Ceftriaxone Sodium 1 gm/ (Sodium Chloride) 50 mls @ 100 mls/hr IVPB Q24H [facility] Last Admin: 07/21/19 19:50 Dose: 100 mls/hr Cefazolin Sodium (Kefzol 2 Gm In Ns Premix(*)) 2 gm in 100 mls @ 200 mls/hr IVPB ONCE ONE Stop: 07/23/19 08:29 Sodium Chloride (Ns 0.9% 1000 Ml) 1,000 mls @ 125 mls/hr IV PER RATE [facility] Metoprolol Tartrate (Lopressor Tab*) 25 mg PO BID [facility] Last Admin: 07/22/19 08:30 Dose: 25 mg Potassium Chloride (Klor Con Er Tab*) 10 meq PO DAILY [facility] Last Admin: 07/22/19 08:30 Dose: 10 meq Tamsulosin HCl (Flomax Cap*) 0.4 mg PO QPM [facility] Last Admin: 07/22/19 17:32 Dose: 0.4 mg Vital Signs - 8 hr 07/22/19 07/22/19 11:52 16:00 Temperature 98.3 F 98.2 F Pulse Rate 64 56 Respiratory 20 20 Rate Blood Pressure 147/65 152/67 (mmHg) O2 Sat by Pulse 94 97 Oximetry Oxygen Devices in Use Now: None Appearance: This is a well developed older gentleman seen resting in bed, no acute distress. Eyes: No Scleral Icterus, PERRLA Ears/Nose/Mouth/Throat: NL Teeth, Lips, Gums, Clear Oropharnyx, Mucous Membranes Moist Neck: NL Appearance and Movements; NL JVP, Trachea Midline Respiratory: Symmetrical Chest Expansion and Respiratory Effort, Clear to Auscultation Cardiovascular: NL Sounds; No Murmurs; No JVD, No Edema Abdominal: NL Sounds; No Tenderness; No Distention Lymphatic: No Cervical Adenopathy Extremities: No Edema, No Clubbing, Cyanosis Skin: No Rash or Ulcers, No Nodules or Sclerosis Neurological: Alert and Oriented x 3 Lines/Tubes/Other Access: Clean, Dry and Intact Peripheral IV Result Diagrams: 07/21/19 05:35 07/21/19 05:35 Additional Lab and Data: Laboratory Results - last 24 hr 07/21/19 07/21/19 05:35 05:35 WBC 5.5 RBC 4.13 L Hgb 13.4 L Hct 37 L MCV 91 MCH 33 H MCHC 36 RDW 13 Plt Count 145 L MPV 7.8 Neut % (Auto) 59.9 Lymph % (Auto) 22.1 [place] % (Auto) 12.5 Eos % (Auto) 4.5 Baso % (Auto) 1.0 Absolute Neuts (auto) 3.3 Absolute Lymphs (auto) 1.2 Absolute Monos (auto) 0.7 Absolute Eos (auto) 0.3 Absolute Basos (auto) 0.1 Absolute Nucleated RBC 0.0 Nucleated RBC % 0.0 Sodium 140 Potassium 3.7 Chloride 106 Carbon Dioxide 30 Anion Gap 4 BUN 19 Creatinine 0.96 Est GFR ( Amer) 89.2 Est GFR (Non-Af Amer) 73.8 BUN/Creatinine Ratio 19.8 Glucose 99 Calcium 8.4 L Magnesium 1.9 Microbiology and Other Data: Microbiology 07/15/19 12:53 Urine Culture - Final Urine Escherichia Coli EKG Data: Tele: Sinus rhythm and occasional sinus arrhythmia. No significant bradycardia noted. Per RN patient has mild tachycardia (into 120s bpm) when ambulating to bathroom Assess/Plan/Problems-Billing Mr Campbell is an 89 yo M who has a h/o afib on coumadin, CAD, HTN and HLD who presented to the ER with c/o syncope. - Patient Problems (1) Syncope Current Visit: Yes Status: Acute Code(s): R55 - SYNCOPE AND COLLAPSE SNOMED Code(s): 603110168 Comment: - No syncope, near syncope or dizziness with position change - Pacemaker Tuesday - Cardiac Cath revealed no obstructive CAD - Cont to monitor on tele. (2) Electrolyte abnormality Current Visit: Yes Status: Acute Code(s): E87.8 - OTH DISORDERS OF ELECTROLYTE AND FLUID BALANCE, NEC SNOMED Code(s): 124006737 Comment: - Resolved. (3) Hypothyroid Current Visit: Yes Status: Acute Code(s): E03.9 - HYPOTHYROIDISM, UNSPECIFIED SNOMED Code(s): 67092165 Comment: - TSH slightly elevated on admission and patient was started on Synthroid which was later d/c'd as elevated TSH is likely sick thyroid. Will need repeat thryoid studies in 4 to 6 weeks (4) PAF (paroxysmal atrial fibrillation) Current Visit: Yes Status: Acute Code(s): I48.0 - PAROXYSMAL ATRIAL FIBRILLATION SNOMED Code(s): 601016952 Comment: - Sinus Rhythm with a 6 beat run of VTACH today. - Continue metoprolol at reduced dose of 25mg BID, tolerating well. - Lovenox until pacemaker placement (last dose scheduled tuesday morning) with possible transition to OAC after pacemaker (5) Urinary tract infection Current Visit: Yes Status: Acute Comment: - Urine grew Ecoli and patient was started on Ceftriaxone and has received 5 days. - Continue Ceftriaxone. Will have received 7 days by Tuesday. (6) BPH (benign prostatic hypertrophy) Current Visit: Yes Status: Chronic Code(s): N40.0 - BENIGN PROSTATIC HYPERPLASIA WITHOUT LOWER URINRY TRACT SYMP SNOMED Code(s): 707022026 Comment: - No new urinary symptoms. Reports he always has some incontinence - Continue flomax and proscar. (7) HTN (hypertension) Current Visit: Yes Status: Chronic Code(s): I10 - ESSENTIAL (PRIMARY) HYPERTENSION SNOMED Code(s): 47967508 Comment: - Mildly elevated in the 140's on average. May need BP adjustment after pacemaker placement - Currently on only reduced dose of metoprolol alone - Home HCTZ and lisinopril are on hold. (8) CAD (coronary artery disease) Current Visit: Yes Status: Chronic Code(s): I25.10 - ATHSCL HEART DISEASE OF [place] CORONARY ARTERY W/O ANG PCTRS SNOMED Code(s): 35056936 Comment: - Cardiac cath revealed no obstructive CAD - No chest pain or other associated symptoms. - Continue ASA, lipitor and metoprolol. (9) Hyperlipidemia Current Visit: Yes Status: Chronic Code(s): E78.5 - HYPERLIPIDEMIA, UNSPECIFIED SNOMED Code(s): 35327014 Comment: - Continue lipitor. (10) DVT prophylaxis Current Visit: Yes Status: Acute Onset Date: 08/10/14 Code(s): DTG7018 - SNOMED Code(s): 257509626 Comment: - Lovenox, on hold for cardiac cath tomorrow. (11) Full code status Current Visit: Yes Status: Acute Code(s): Z78.9 - OTHER SPECIFIED HEALTH STATUS SNOMED Code(s): 149098155 Status and Disposition: Condition: Guarded Dispo: Admit inpatient to . Attending: Maylin Garcia
[2019-07-23 06:15] LABS: ABS Eosinophils 0.2 10^3/ul (0-0.6); ABS Lymphocytes 1.1 10^3/ul (1.0-4.8); ABS Monocytes 0.6 10^3/ul (0-0.8); ABS Neutrophils 2.7 10^3/ul (1.5-7.7); Eosinophil % 4.5 %; Hematocrit 38 % (42-52); Hemoglobin 13.4 g/dL (14.0-18.0); Lymphocyte % 24.1 %; Mean Corpuscular HGB Conc 35 g/dL (31-36); Mean Corpuscular Hemoglobin 32 pg (27-31); Mean Corpuscular Volume 91 fL (80-94); Mean Platelet Volume 8.1 fL (7.4-10.4); Platelet Count 162 10^3/uL (150-450); Red Blood Count 4.16 10^6 /uL (4.18-5.48); Red Cell Distribution Width 13 % (10-15); White Blood Count 4.7 10^3/uL (3.5-10.8)
[2019-07-23 06:44] LABS: Calcium 8.7 mg/dL (8.6-10.3); EGFR African American 85.1 (>60); EGFR Non-African American 70.4 (>60); Potassium 3.8 mmol/L (3.5-5.0)
[2019-07-23] MEDS: NS 0.9% 1000 ML** 1,000 ML IV SCH (06:50)
[2019-07-23] MEDS ORDERED: Diazepam TAB(*) 5 MG PO ONE (08:00)
[2019-07-23] MEDS ORDERED: ceFAZolin 2 GM in NS PREMIX(*) 2 GM/100 ML BAG IVPB ONE (08:00)
[2019-07-23] MEDS: Aspirin EC TAB* 81 MG TAB.EC PO SCH (08:43)
[2019-07-23] MEDS: Metoprolol Tartrate TAB* 25 MG PO SCH ×2 (08:43→21:49)
[2019-07-23] MEDS: Finasteride TAB* 5 MG PO SCH (08:44)
[2019-07-23] MEDS: Atorvastatin* 40 MG TAB PO SCH (08:44)
[2019-07-23] MEDS: Potassium Chlor TAB* 10 MEQ TAB.ER PO SCH (08:44)
--- NOTE | 2019-07-23 09:55 | PN ---
Subjective Date of Service: 07/23/19 Interval History: Patient states he feels well, has no acute complaints. Is awaiting pacemaker placement with Dr. Ritchie. Denies lightheadedness/dizziness, chest pain, palpitations, abdominal pain, nausea, vomiting. Family History: Unchanged from Admission Social History: Unchanged from Admission Past Medical History: Unchanged from Admission Objective Active Medications: Acetaminophen (Tylenol Tab*) 650 mg PO Q4H PRN PRN Reason: FEVER,PAIN Aspirin (Aspirin Ec Tab*) 81 mg PO DAILY [facility] Last Admin: 07/23/19 08:43 Dose: 81 mg Atorvastatin Calcium (Lipitor*) 40 mg PO DAILY [facility] Last Admin: 07/23/19 08:44 Dose: 40 mg Calcium Carbonate (Tums*) 500 mg PO Q4H PRN PRN Reason: HEARTBURN Last Admin: 07/15/19 21:38 Dose: 500 mg Diazepam (Valium Tab(*)) 2.5 mg PO ONCE PRN PRN 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 Diphenhydramine HCl (Benadryl Po*) 25 mg PO ONCE PRN PRN 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 Finasteride (Proscar Tab*) 5 mg PO DAILY [facility] Last Admin: 07/23/19 08:44 Dose: 5 mg Ceftriaxone Sodium 1 gm/ (Sodium Chloride) 50 mls @ 100 mls/hr IVPB Q24H [facility] Last Admin: 07/22/19 18:31 Dose: 100 mls/hr Sodium Chloride (Ns 0.9% 1000 Ml) 1,000 mls @ 125 mls/hr IV PER RATE [facility] Last Admin: 07/23/19 06:50 Dose: 125 mls/hr Metoprolol Tartrate (Lopressor Tab*) 25 mg PO BID [facility] Last Admin: 07/23/19 08:43 Dose: 25 mg Potassium Chloride (Klor Con Er Tab*) 10 meq PO DAILY [facility] Last Admin: 07/23/19 08:44 Dose: 10 meq Tamsulosin HCl (Flomax Cap*) 0.4 mg PO QPM [facility] Last Admin: 07/22/19 17:32 Dose: 0.4 mg Vital Signs - 8 hr 07/23/19 07/23/19 07/23/19 03:26 07:31 08:00 Temperature 97.7 F 98.2 F Pulse Rate 70 65 Respiratory 14 16 16 Rate Blood Pressure 134/59 142/67 (mmHg) O2 Sat by Pulse 97 95 Oximetry Oxygen Devices in Use Now: None Appearance: This is a well developed older gentleman in no acute distress. Eyes: No Scleral Icterus, PERRLA Ears/Nose/Mouth/Throat: NL Teeth, Lips, Gums, Clear Oropharnyx, Mucous Membranes Moist Neck: NL Appearance and Movements; NL JVP, Trachea Midline Respiratory: Symmetrical Chest Expansion and Respiratory Effort, Clear to Auscultation Cardiovascular: NL Sounds; No Murmurs; No JVD, RRR, No Edema Abdominal: NL Sounds; No Tenderness; No Distention Lymphatic: No Cervical Adenopathy Extremities: No Edema, No Clubbing, Cyanosis Skin: No Rash or Ulcers, No Nodules or Sclerosis Neurological: Alert and Oriented x 3 Lines/Tubes/Other Access: Clean, Dry and Intact Peripheral IV Result Diagrams: 07/23/19 05:45 07/23/19 05:45 Additional Lab and Data: Laboratory Results - last 24 hr 07/21/19 07/21/19 05:35 05:35 WBC 5.5 RBC 4.13 L Hgb 13.4 L Hct 37 L MCV 91 MCH 33 H MCHC 36 RDW 13 Plt Count 145 L MPV 7.8 Neut % (Auto) 59.9 Lymph % (Auto) 22.1 [place] % (Auto) 12.5 Eos % (Auto) 4.5 Baso % (Auto) 1.0 Absolute Neuts (auto) 3.3 Absolute Lymphs (auto) 1.2 Absolute Monos (auto) 0.7 Absolute Eos (auto) 0.3 Absolute Basos (auto) 0.1 Absolute Nucleated RBC 0.0 Nucleated RBC % 0.0 Sodium 140 Potassium 3.7 Chloride 106 Carbon Dioxide 30 Anion Gap 4 BUN 19 Creatinine 0.96 Est GFR ( Amer) 89.2 Est GFR (Non-Af Amer) 73.8 BUN/Creatinine Ratio 19.8 Glucose 99 Calcium 8.4 L Magnesium 1.9 Microbiology and Other Data: Microbiology 07/15/19 12:53 Urine Culture - Final Urine Escherichia Coli EKG Data: Tele: Sinus rhythm and occasional sinus arrhythmia. No significant bradycardia noted. Per RN patient has mild tachycardia (into 120s bpm) when ambulating to bathroom Assess/Plan/Problems-Billing Mr Campbell is an 89 yo M who has a h/o afib on coumadin, CAD, HTN and HLD who presented to the ER with c/o syncope. - Patient Problems (1) Syncope Current Visit: Yes Status: Acute Code(s): R55 - SYNCOPE AND COLLAPSE SNOMED Code(s): 780414829 Comment: - No syncope, near syncope or dizziness with position change - Pacemaker today with Dr. Ritchie. Had a 6 beat run of v-tach yesterday. Goal is to increase metoprolol after pacer placement. - Cardiac Cath revealed no obstructive CAD - Cont to monitor on tele. (2) Electrolyte abnormality Current Visit: Yes Status: Acute Code(s): E87.8 - OTH DISORDERS OF ELECTROLYTE AND FLUID BALANCE, NEC SNOMED Code(s): 297360269 Comment: - Resolved. (3) Hypothyroid Current Visit: Yes Status: Acute Code(s): E03.9 - HYPOTHYROIDISM, UNSPECIFIED SNOMED Code(s): 51921213 Comment: - TSH slightly elevated on admission and patient was started on Synthroid which was later d/c'd as elevated TSH is likely sick thyroid. Will need repeat thryoid studies in 4 to 6 weeks (4) PAF (paroxysmal atrial fibrillation) Current Visit: Yes Status: Acute Code(s): I48.0 - PAROXYSMAL ATRIAL FIBRILLATION SNOMED Code(s): 248236289 Comment: - Currently in sinus rhythm - Continue metoprolol at reduced dose of 25mg BID, tolerating well, goal is to increase it after pacer. - Lovenox until pacemaker placement (last dose scheduled tuesday morning) with possible transition to OAC after pacemaker (5) Urinary tract infection Current Visit: Yes Status: Acute Comment: - Urine grew Ecoli and patient was started on Ceftriaxone and has received 5 days. - Continue Ceftriaxone, ending after today's dose. Will have received 7 days by today. (6) BPH (benign prostatic hypertrophy) Current Visit: Yes Status: Chronic Code(s): N40.0 - BENIGN PROSTATIC HYPERPLASIA WITHOUT LOWER URINRY TRACT SYMP SNOMED Code(s): 177435833 Comment: - No new urinary symptoms. Reports he always has some incontinence - Continue flomax and proscar. (7) HTN (hypertension) Current Visit: Yes Status: Chronic Code(s): I10 - ESSENTIAL (PRIMARY) HYPERTENSION SNOMED Code(s): 30957384 Comment: - Mildly elevated in the 140's on average. - Currently on only reduced dose of metoprolol alone. Will increase metoprolol after pacer. - Home HCTZ and lisinopril are on hold. (8) CAD (coronary artery disease) Current Visit: Yes Status: Chronic Code(s): I25.10 - ATHSCL HEART DISEASE OF [place] CORONARY ARTERY W/O ANG PCTRS SNOMED Code(s): 43042150 Comment: - Cardiac cath revealed no obstructive CAD - No chest pain or other associated symptoms. - Continue ASA, lipitor and metoprolol. (9) Hyperlipidemia Current Visit: Yes Status: Chronic Code(s): E78.5 - HYPERLIPIDEMIA, UNSPECIFIED SNOMED Code(s): 19412397 Comment: - Continue lipitor. (10) DVT prophylaxis Current Visit: Yes Status: Acute Onset Date: 08/10/14 Code(s): UGA0758 - SNOMED Code(s): 639799932 Comment: - Lovenox, on hold for pacer today (11) Full code status Current Visit: Yes Status: Acute Code(s): Z78.9 - OTHER SPECIFIED HEALTH STATUS SNOMED Code(s): 695438414 Status and Disposition: Condition: Guarded Dispo: Admit inpatient to . Attending: Tristin Caballero
[2019-07-23] MEDS ORDERED: cefTRIAXone(*) 1 GM in NS 0.9% 50 ML* 50 ML IVPB SCH (10:30)
[2019-07-23] MEDS ORDERED: ceFAZolin 1 GM ADVAN(*) 1 GM in NS 0.9% 50 ML* 50 ML IVPB ONE (13:00)
[2019-07-23] MEDS ORDERED: ceFAZolin VIAL 1 GM in NS *SYRINGE * * 10 ML ONE (13:30)
[2019-07-23] MEDS ORDERED: Midazolam* 1 MG/ML 5 ML VIAL (5 MG) ONE (13:42)
[2019-07-23] MEDS ORDERED: fentaNYL* 50 MCG/ML 2 ML VIAL (100 MCG VIAL) ONE (13:42)
[2019-07-23] MEDS ORDERED: Lidocaine 1% INJ* 10 MG/ML 30 ML SDV ONE (13:42)
[2019-07-23] MEDS ORDERED: oxyCODONE/Acetamin 5/325 MG* TAB PO PRN (15:01)
[2019-07-23] MEDS: Tamsulosin CAP* 0.4 MG PO SCH (17:10)
[2019-07-23] MEDS: ceFAZolin VIAL(*) 1 GM in NS 0.9% 50 ML* 50 ML IVPB SCH (21:49)
[2019-07-24] MEDS: ceFAZolin VIAL(*) 1 GM in NS 0.9% 50 ML* 50 ML IVPB SCH (05:33)
[2019-07-24] MEDS: NS 0.9% 1000 ML** 1,000 ML IV SCH (05:34)
[2019-07-24 05:54] LABS: ABS Eosinophils 0.2 10^3/ul (0-0.6); ABS Lymphocytes 0.9 10^3/ul (1.0-4.8); ABS Monocytes 0.7 10^3/ul (0-0.8); ABS Neutrophils 4.5 10^3/ul (1.5-7.7); Eosinophil % 3.8 %; Hematocrit 37 % (42-52); Hemoglobin 13.1 g/dL (14.0-18.0); Lymphocyte % 13.9 %; Mean Corpuscular HGB Conc 36 g/dL (31-36); Mean Corpuscular Hemoglobin 32 pg (27-31); Mean Corpuscular Volume 91 fL (80-94); Mean Platelet Volume 8.1 fL (7.4-10.4); Nucleated Red Blood Cells % 0.1; Platelet Count 146 10^3/uL (150-450); Red Blood Count 4.05 10^6 /uL (4.18-5.48); Red Cell Distribution Width 13 % (10-15); White Blood Count 6.4 10^3/uL (3.5-10.8)
[2019-07-24 06:05] LABS: Calcium 8.5 mg/dL (8.6-10.3); Potassium 3.7 mmol/L (3.5-5.0)
[2019-07-24 06:11] LABS: BUN/Creatinine Ratio 22.7 (8-20); EGFR African American 88.2 (>60); EGFR Non-African American 72.9 (>60)
--- NOTE | 2019-07-24 08:30 | PN ---
Subjective Date of Service: 07/24/19 - syncope, SSS s/p PPM implant 07/23/2019 Interval History: No c/o post cath. No further LOC, dizziness. No c/o chest pain, sob. Patient's daughter is inquiring about [facility] 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 Diphenhydramine HCl (Benadryl Po*) 25 mg PO ONCE PRN PRN 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 Finasteride (Proscar Tab*) 5 mg PO DAILY [facility] Last Admin: 07/23/19 08:44 Dose: 5 mg Sodium Chloride (Ns 0.9% 1000 Ml) 1,000 mls @ 125 mls/hr IV PER RATE [facility] Last Admin: 07/24/19 05:34 Dose: 125 mls/hr Cefazolin Sodium 1 gm/ Sodium (Chloride) 50 mls @ 200 mls/hr IVPB Q8H [facility] Stop: 07/24/19 14:14 Last Admin: 07/24/19 05:33 Dose: 200 mls/hr Metoprolol Tartrate (Lopressor Tab*) 50 mg PO BID [facility] Last Admin: 07/23/19 21:49 Dose: 50 mg Oxycodone/Acetaminophen (Percocet 5/325 Tab*) 1 tab PO Q4H PRN PRN Reason: PAIN - MODERATE Potassium Chloride (Klor Con Er Tab*) 10 meq PO DAILY [facility] Last Admin: 07/23/19 08:44 Dose: 10 meq Tamsulosin HCl (Flomax Cap*) 0.4 mg PO QPM [facility] Last Admin: 07/23/19 17:10 Dose: 0.4 mg Objective Vital Signs: Temp Pulse Resp BP Pulse Ox 97.0 F 59 16 134/64 94 07/24/19 07:33 07/24/19 07:33 07/24/19 07:33 07/24/19 07:33 07/24/19 07:33 Oxygen Devices in Use Now: None Appearance: nad pleasant, lying in bed. Eyes: No Scleral Icterus, PERRLA Ears/Nose/Mouth/Throat: Mucous Membranes Moist Neck: NL Appearance and Movements; NL JVP, Trachea Midline Respiratory: Symmetrical Chest Expansion and Respiratory Effort, Clear to Auscultation Cardiovascular: RRR, No Edema, - Abdominal: NL Sounds; No Tenderness; No Distention, No Hepatosplenomegaly Extremities: - - Right wrist: bandaid on cath site, no ecymosis or fullness, brisk radial pulse distal to stick. No hematoma. Skin: No Rash or Ulcers, - - left anterior device site intact, slight ooxing noted from staple insertion, no erythema, no pocket hematoma. non tender to inflamation Neurological: Alert and Oriented x 3 Lines/Tubes/Other Access: Clean, Dry and Intact Peripheral IV Laboratory Results: 07/24/19 05:32 07/24/19 05:32 INR (Anticoag Therapy) 1.43 (0.82-1.09) H 07/20/19 06:18 APTT 46.1 seconds (26.0-38.0) H 07/19/19 09:36 Total Bilirubin 1.00 mg/dL (0.2-1.0) 07/15/19 10:55 AST 13 U/L (13-39) 07/15/19 10:55 ALT 12 U/L (7-52) 07/15/19 10:55 Alkaline Phosphatase 55 U/L (34-104) 07/15/19 10:55 B-Natriuretic Peptide 41 pg/mL (<=100) 07/15/19 10:55 Total Protein 6.4 g/dL (6.4-8.9) 07/15/19 10:55 Albumin 3.8 g/dL (3.2-5.2) 07/15/19 10:55 Globulin 2.6 g/dL (2-4) 07/15/19 10:55 Albumin/Globulin Ratio 1.5 (1-3) 07/15/19 10:55 TSH 8.92 mcIU/mL (0.34-5.60) H 07/15/19 10:55 07/15/19 10:55 Troponin I 0.01 Laboratory Results - last 24 hr 07/24/19 07/24/19 05:32 05:32 WBC 6.4 RBC 4.05 L Hgb 13.1 L Hct 37 L MCV 91 MCH 32 H MCHC 36 RDW 13 Plt Count 146 L MPV 8.1 Neut % (Auto) 70.0 Lymph % (Auto) 13.9 [place] % (Auto) 11.7 Eos % (Auto) 3.8 Baso % (Auto) 0.6 Absolute Neuts (auto) 4.5 Absolute Lymphs (auto) 0.9 L Absolute Monos (auto) 0.7 Absolute Eos (auto) 0.2 Absolute Basos (auto) 0.0 Absolute Nucleated RBC 0.0 Nucleated RBC % 0.1 Sodium 140 Potassium 3.7 Chloride 106 Carbon Dioxide 31 Anion Gap 3 BUN 22 Creatinine 0.97 Est GFR ( Amer) 88.2 Est GFR (Non-Af Amer) 72.9 BUN/Creatinine Ratio 22.7 H Glucose 106 H Calcium 8.5 L Diagnostic Imaging: *[facility]* [place] [address] Fax #: [phone] Transthoracic Echocardiogram Patient: Natan Campbell : 1930 Study Date: 07/16/2019 Age: 89 Gender: M HR: 66 bpm Height: 68 in /172.7 cm BSA: 1.87 m^2 Weight: 159.7 lb /72.6 kg BMI: 24.3 kg/m^2 *Licensed Guide: * Tiffanie Sweeney RD RDMS *Referring Physician: * Comfort Tapia *Reading Physician: * Odell Ritchie MD Indications: Syncope. History: Coronary artery disease. Risk factors: Hypertension. Dyslipidemia. Labs, prior tests, procedures, and surgery: Catheterization. There was a stenosis which was treated with a stent. Conclusions Summary: - Left ventricle: Systolic function is at the lower limits of normal. The estimated ejection fraction is 50-55%. Wall motion is normal; there are no regional wall motion abnormalities. - Mitral valve: There is trace regurgitation. - Aortic valve: The findings are consistent with mild stenosis. There is mild regurgitation. The mean systolic gradient is 8.0 mm Hg. The valve area by the velocity-time integral method is 1.40 cm^2. The valve area by the peak velocity method is 1.50 cm^2. The regurgitation pressure half-time is 466 ms. - Tricuspid valve: There is trace to mild regurgitation. - Pulmonary arteries: Systolic pressure is mildly increased. - Compared to study of 11/29/16, there is no significant change This report is only to be considered final once signed by the Provider(s) as displayed in the "<Electronically Signed by >" field (s). Absence of a signature indicates the report is in a draft status and still needs to be finalized. In the event this document was created by someone other than the signing Provider, the individual initiating the document will be listed in the "Entered by:" or "Dictated by:" lim. Patient Name: NATAN CAMPBELL Medical Record#: [id number] Ordering Physician: Zaria Broderick NP Acct.#: [id number] : 1930 Age: 89 Sex: M Location: [address] [place] [address] MEDICAL/TELEMETRY Exam Date: 07/17/19 0700 ADM Status: ADM IN Order Information: NUCLEAR CARDIAC STRESS TEST Accession Number: [id number] CPT: 46195 INDICATION: Syncope. Paroxysmal atrial fibrillation. COMPARISON: August 12, 2014 nuclear stress test. TECHNIQUE: #. One day protocol. #. On July 17, 2019: 10.880 mCi of Tc-99m Myoview were administered IV. SPECT images of the heart were obtained. #. On July 17, 2019: Under the direction of Dr. Khan, an exercise stress test was performed. The patient achieved a peak heart rate of 152 bpm, 116 % of the age- predicted maximum. Subsequently, the patient was given an IV injection of 25.030 mCi Tc- 99m Myoview. SPECT images of the heart were obtained and a gated wall motion study was performed. #. Body habitus precluded obtaining CT for attenuation correction. FINDINGS: Gated wall motion images were obtained at stress and demonstrate mild hypokinesia at the septum. The calculated left ventricular ejection fraction is 68 % at stress. Estimated LEFT ventricular end diastolic volume is 49 mL. Transient Ischemic Dilatation (TID) of the left ventricle 0.73. Abnormal is greater than 1.13 to 1.38. Large perfusion defect from the apical through the basilar inferior wall segments significantly greater at stress than rest. No additional LEFT ventricular perfusion abnormalities. IMPRESSION: #. Normal range estimated LEFT ventricular ejection fraction. Mild hypokinesia at the septum. #. While the exam is limited without CT for attenuation correction and the perfusion abnormality at the inferior wall may be secondary to diaphragmatic attenuation the observation that the perfusion defect appears significantly worse at stress than rest is concerning for potential stress-induced ischemia. ASSESSMENT: Intermediate risk based on nuclear portion. Based on imaging criteria from ACC/AHA 2002 Guideline Update for the Management of Patients With Chronic Stable Angina Table 23. Noninvasive Risk Stratification. <Electronically signed by Josue Jacobsen MD in OV> 07/17/19 1136 Dictated By: Josue Jacobsen MD Dictated Date/Time: 07/17/191128 Transcribed Date/Time: 07/17/191128 Copy to: This report is only to be considered final once signed by the Provider(s) as displayed in the "<Electronically Signed by >" field (s). Absence of a signature indicates the report is in a draft status and still needs to be finalized. In the event this document was created by someone other than the signing Provider, the individual initiating the document will be listed in the "Entered by:" or "Dictated by:" lim. 1 of 2 Cardiac Catheterization Report NATAN CAMPBELL [id number] 07/16/19 The total contrast used was 60 cc of Omnipaque dye. The radiation exposure included 5.7 minutes of fluoro time. The air kerma radiation was 521 milligray. The DAP radiation was 3339 microgray per meter square. RESULTS: CORONARY ARTERIOGRAPHY: A. Left coronary artery. 1. Left main - the left main artery was noted to have mild calcium seen within it as well as in the proximal to mid LAD and proximal circumflex. The left main itself had minimal narrowing noted. 2. Left anterior descending artery. The left anterior descending artery supplied a high bifurcating first diagonal branch followed by a mid diagonal branch. There were mild luminal irregularity seen throughout the course of the vessel. Of note, the area of prior stent placement in the mid LAD had no evidence of significant in- stent restenosis. Of note, the LAD extended to the apical region, but not well onto the distal inferior wall. The ostium of the left anterior descending artery had a narrowing of approximately 35%. The mid portion of left anterior descending artery had areas of luminal reduction of approximately 30% to 35% with calcification seen. The distal portion of the first diagonal branch is larger branch, had 35% to 40% narrowing noted. 3. Circumflex artery, supplying a very thin trifurcation marginal/first obtuse marginal branch followed by moderate size bifurcating obtuse marginal branch. There was mild luminal irregularity of 25% to 30% seen throughout the course of this vessel. B. Right coronary artery - a dominant vessel supplying the PDA and multiple posterior left ventricular branches. There is calcium seen in the proximal and mid and distal portion of the vessel. The area of prior stenting appeared to have mild in-stent restenosis of approximately 30% to 35% without significant obstruction. The posterior descending artery had a 45% to 50% lesion proximal to mid narrowing noted in a somewhat small caliber vessel barely 2 mm. The continuation of the right coronary artery supplied 2 small posterior left ventricular branches followed by moderate one, which extended to the posteroapical region followed by another small posterior left ventricular branch. There was no focal significant obstruction seen within those vessels. OVERALL ASSESSMENT: Moderate coronary artery disease in proximal portion of a somewhat small caliber right-sided posterior left ventricular branch without critical stenosis seen. Patent stents to both the mid right coronary artery and the mid left anterior descending artery. No critical focal stenosis identified on current study. These results were shared with Dr. Florentino Villatoro, the trouble clerk rounding in the hospital on the day of the cardiac catheterization. This information will also be sent to Dr. Driver, the patient's outpatient primary trouble clerk. I did personally spoke to the hospitalist GERALDINE Vargas, regarding the patient. The issue of whether to restart Coumadin versus a NOAC agent will be made by Dr. Villatoro and the hospitalist, as well as the decision of timing of possible pacemaker. [id number]/[facility] #: [id number] Mario Khan MD Dictated Date/Time: 07/20/19 1220 Transcribed Date/Time 07/20/19 1317 Copy to: This report is only to be considered final once signed by the Provider(s) as displayed in the "<Electronically Signed by >" field (s). Absence of a signature indicates the report is in a draft status and still needs to be finalized. In the event this document was created by someone other than the signing Provider, the individual initiating the document will be listed in the "Entered by:" or "Dictated by:" lim. 2 of 3 EKG Data: Tele: NSR, rate increases standing/activity. No significant bradycardia/pauses. Assessment/Plan 89 yo who presented with syncope sitting at a restaurant, LOC x 10 minutes, found w/sinus bradycardia, UTI, CAD non obstructive on cath. Hx of distant syncope associated with AFib. 1; Syncope; -recurrent, possibly related to SSS, lopressor dose, UTI and vagal tone, but no prodrome and has occurred several times. -s/p Pacer implant scheduled Tuesday.07/23/2019. device site intact, no pocket hematoma. To have CXR this morning and device check. Will need to go home on Keflex 250mg Po TIDx3 days then stop. He is aware he may shower starting tomorrow but may not soak device site wound. He is to wear arm immobilizer for 6 weeks and is aware to not lift left arm above should or reach behind him until further directed. Please note left arm restrictions are in discharge plan . If CXR is negative and today's device interrogation reveals adequate pacing thresholds will sign off. 2; CAD; On ASA, bblocker, statin therapy. Non obstructive disease noted on this admits cath. 3; PAF; Historically on Coumadin with goal INR 2-3. Patient and his daughter are asking to be placed on Xarelto. Will differ to primary team and case managed in regards to determining drug cost. He may resume OAC tonight. ON bblocker therapy. Disposition pending course. await CXR and device interrogation.May resume OAC tonight. Will differ initiating Xarelto to primary team. Attending: Odell Ritchie
[2019-07-24] MEDS: Atorvastatin* 40 MG TAB PO SCH (08:40)
[2019-07-24] MEDS: Aspirin EC TAB* 81 MG TAB.EC PO SCH (08:40)
[2019-07-24] MEDS: Potassium Chlor TAB* 10 MEQ TAB.ER PO SCH (08:40)
[2019-07-24] MEDS: Finasteride TAB* 5 MG PO SCH (08:40)
[2019-07-24] MEDS: Metoprolol Tartrate TAB* 25 MG PO SCH (08:40)
[2019-07-24 12:13] VITALS: BP 139/62
--- NOTE | 2019-07-24 17:00 | OP ---
CC: Dr. Driver OPERATIVE REPORT: DATE OF OPERATION: 07/23/19 DATE OF : [birth year] SURGEON: Odell Ritchie MD ANESTHESIA: Local anesthesia with conscious sedation. PRE-OP DIAGNOSES: 1. Sick sinus syndrome. 2. Syncope. POST-OP DIAGNOSES: 1. Sick sinus syndrome. 2. Syncope. OPERATIVE PROCEDURE: Dual-chamber pacemaker implantation. ESTIMATED BLOOD LOSS: Nil. COMPLICATIONS: None. INDICATIONS: The patient is an 89-year-old gentleman with a history of paroxysmal atrial fibrillatio n, who came to the hospital because of a syncopal episode. He has bradycardia down to 40 beats per m inute with runs of atrial fibrillation. Permanent pacemaker was recommended for maximization of medic al therapy. DESCRIPTION OF PROCEDURE: The patient was in a fasting state. Informed consent had been obtained pr ior to the procedure. All labs had been reviewed. The patient was placed supine on the procedure ta ble. His left pectoral area was cleaned and draped in the usual fashion. 1% lidocaine was used for local anesthesia. Under ultrasound guidance, the axillary vein was entered via Seldinger technique a nd a guidewire was placed. A second guidewire was placed in the same technique. A 3.5 cm incision w as made in the pectoral area. Blunt dissection was carried down to the pectoral fascia. A pocket wa s fashioned for the pacemaker. Over the first guidewire, a 7-Swazi sheath introducer was placed thr ough which a right ventricular lead was advanced to the RV septal wall. The right ventricular lead i s a [employer] model 5076, serial number [id number]. It had an R-wave sensitivity of 12, impedance 11 21 ohms, threshold 1 volt at 0.5 milliseconds. The ventricular lead was sutured to the pectoral fasc ia. Over the second guidewire, a 7-Swazi sheath introducer was placed through which the right atria l lead was advanced to the high right atrium. The right atrial lead is a Med[employer]onic model 5076, seria l number [id number]. It had P-wave sensitivity of 5, impedance 781 ohms, threshold 1 volt at 0.5 mil liseconds. The atrial lead was sutured to the pectoral fascia. A generator was attached appropriate ly to the atrial and ventricular leads. The generator is a [employer] model W1DR01, serial number [id number]. The device was placed in the pocket. The surgical incision was closed in 3 layers. The pa tient was returned to the holding area in stable condition. [id number]/[facility] #: [id number]
--- NOTE | 2019-07-24 23:14 | DS ---
CC: Dr. Tristan; Dr. Driver. * DISCHARGE SUMMARY: DATE OF ADMISSION: 07/16/19 DATE OF DISCHARGE: 07/24/19 PROVIDER: Fatmata Suarez NP ATTENDING PHYSICIAN: Dr. Fountain.* (DICTATED BY FATMATA SUAREZ NP) PRIMARY CARE PHYSICIAN: Dr. Tristan and Dr. Driver. CONSULTING PHYSICIAN: Dr. Ritchie. PRIMARY DIAGNOSES: 1. Likely sick sinus syndrome with pacer placement. 2. Electrolyte imbalances. SECONDARY DIAGNOSES: 1. Benign prostatic hyperplasia. 2. Atrial fibrillation. 3. Hypertension. 4. Hyperlipidemia. PROCEDURES: 1. On 07/17/19, he had a nuclear med scan which showed a normal range estimated left ventricular ejection fraction. Mild hypokinesis of the septum. While the exam is limited without CT for attenuation, correction of the perfusion abnormality at the inferior wall may be secondary to diaphragmatic attenuation. The observation that the perfusion defect appears significantly worse at stress than rest is concerning for potential stress induced ischemia. Deemed to be an intermediate risk. 2. Cardiac catheterization on 07/20/19, which showed moderate coronary artery disease in the proximal portion of a somewhat small caliber right-sided posterior left ventricular branch without critical stenosis seen. Patent stents to both the mid right coronary artery and the mid left anterior descending artery. No critical focal stenosis identified on current study. These results were shared with Dr. Florentino Villatoro. DIAGNOSTIC STUDIES: Brain CT showed no acute intracranial pathology. Diffuse involutional changes with chronic small-vessel ischemic changes. Chest x-ray on 07/15/19 showed stable right lower lung atelectasis. Transthoracic echocardiogram showed an ejection fraction of 50% to 55%. No regional wall motion abnormalities. Trace mitral valve regurgitation. Mild aortic valve stenosis and regurgitation. Tricuspid valve had [id number] regurgitation and there was a mild increase in pulmonary artery pressure. PERTINENT LABORATORY DATA: Calcium 8.4, ammonia 61, TSH 8.92, free T4 of 0.86, free T3 of 3.90. RBC 4.05, hemoglobin 13.1, hematocrit 37, MCV 91, MCH 32. Urine on 07/15/19 showed positive nitrites, 3+ leukocyte esterase, 3+ wbc's, 2+ rbc's, and squamous epithelial cells were present. Serum alcohol was less than 10. Urine culture showed E. coli with greater than 100,000 colonies. HISTORY OF PRESENT ILLNESS/HOSPITAL COURSE: This is an 89-year-old male with a past medical history significant for paroxysmal afib on chronic Coumadin therapy , coronary artery disease with a stent placement in 2008 who presented to the emergency room on 07/15/19 after a syncopal episode while out at the diner. He has stated that in the month previous, he had had a significant bout of a "GI bug" and had been seen in the hospital, at which time a CT scan had showed possible enteritis. However, while the syncopal episode had happened they were waiting for their food, he was seated. His described him as leaning forward, was unconscious. Noted some shaking of his extremities and some difficulty breathing. He was in and out of consciousness for several minutes and only fully regained consciousness once EMS arrived. Though once he arrived to the emergency room, his symptoms had resolved. He in January of 2019 had reported odd chest sensations at that time and had a Holter monitor, which showed no relevant abnormalities. In the emergency room, a brain CT scan, chest x-ray was done. Labs were drawn. He was noted to have had mild electrolyte derangement and was repleted with magnesium and potassium supplements. Vitals revealed bradycardia. His metoprolol dosing was cut in half. Initially , the bradycardia was thought to possibly be related to a previously undiagnosed hypothyroidism as the TSH was 8.92 and was given a dose of levothyroxine. However, a free T4 and free T3 came back the next day at normal level and the levothyroxine was discontinued. On 07/16/19, the day passed uneventfully with no syncopal episodes. Bradycardia appeared to have improved. 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 The next day, he had bradycardia without symptoms. He was waiting for an INR to be less than 2 to perform a cardiac catheterization. No vitamin K was given. Eventually, on the 07/20/19, a cardiac catheterization was completed. A tentative plan for a pacemaker the following Tuesday was made with the family. Over the weekend on the Tuesday, he had a 6 beat run of V- tach through which he had no symptoms. The weekend passed by fairly uneventfully. On the , his pacer was placed, which he tolerated well. His metoprolol dosing was increased back to his normal home dosing and continued to be monitored on telemetry. Today, he did not sleep well due to the presence of his immobilizer and some discomfort around his incision. However, he was asymptomatic without any lightheadedness, dizziness, chest pain, palpitations, or shortness of breath. REVIEW OF SYSTEMS: All pertinent positives and negatives were addressed in the HPI. PHYSICAL EXAMINATION: Vital Signs: 97.6 Fahrenheit, 59 pulse, 20 respirations , 97% oxygen on room air, 139/62 blood pressure. General: This is a well- developed, older gentleman seen sitting up at the side of the bed, in no acute distress. HEENT: Conjunctivae pink and moist. PERRLA, EOMs intact. Mucous membranes moist. Oropharynx clear. Neck is supple. Cardiac: S1, S2 present. No murmurs, gallops, or rubs appreciated. Respiratory: Lungs sounds clear throughout bilaterally on room air. No accessory muscle use noted. Abdomen: Soft, nontender, and nondistended with positive bowel sounds x4. Musculoskeletal: Shoulder immobilizer in place to the left arm, 2+ positive radial pulses. Capillary refill was within 3 seconds, he was able to move all digits. Skin: There was an area of ecchymosis spanning several inches to the medial aspect of the . Dressing was clean, dry, and intact. No other open areas appreciated. Neurologic: Sensation intact to light touch. No focal deficits appreciated. Psych: He is alert and oriented x4. Thought content organized. DISCHARGE PLAN: He is to be discharged with a heart-healthy diet which means low fat, low salt. For his activity, he is to use only gentle movements on his left arm; avoid stretching, lifting, and sudden movement. He should not lift his left arm over his head or lift more than 5 pounds for 1 month. He should avoid contact sports or activities that would cause chest trauma for 6 weeks such as heavy lifting or running. He can resume driving 7 days after a pacemaker insertion. He should wear his shoulder immobilizer on the left side for 3 to 4 weeks. WOUND CARE: He is to keep the wound clean and dry. He can shower with soap and water within 48 hours and let the water run over the site. He is not to scrub it. Pat it dry. Avoid tub baths and swimming for 10 days. He is to apply a clean gauze dressing daily until he is seen by Dr. Ritchie and to avoid wearing tight clothing. He is to return to the hospital for any sudden chest pain or shortness of breath or palpitation. PLAN FOR EACH CONDITION: 1. Pacer placement secondary to a sick sinus syndrome. Please see the above paragraph for specific activity and movement restrictions. He is to take the Keflex 3 times a day for 3 days for prophylactic antibiotic infection prevention and to continue his metoprolol and aspirin. 2. Paroxysmal atrial fibrillation. Originally, the patient was taking Coumadin ; however, he was switched to Xarelto during this admission for increased effectiveness. He has remained in sinus rhythm/arrhythmia for the majority of his stay, and he is to continue his metoprolol. 3. Hyperlipidemia. He is to continue his Atorvastatin. 4. Hypertension. Continue hydrochlorothiazide, lisinopril, and potassium supplements. 5. BPH. He is to continue his tamsulosin and finasteride. FOLLOWUP APPOINTMENTS: He is to follow up with Dr. Ritchie on 07/31/19 at 1:30 p.m. and to follow up with Zaria Broderick NP on 08/10/19 at 1 p.m., and with Dr. Tristan within the next 1 to 2 weeks. MEDICATIONS: New Medications upon discharge: 1. Xarelto 20 mg p.o. daily. 2. Percocet 5/325 one tab every 4 hours as needed for moderate pain. 3. Cephalexin 250 mg p.o. t.i.d. x3 days. Other medications to continue upon discharge: 1. Tamsulosin 0.4 mg p.o. daily. 2. Potassium chloride 10 mEq p.o. daily. 3. Multivitamin for men 1 tab p.o. daily. 4. Metoprolol tartrate 50 mg p.o. b.i.d. 5. Lisinopril 10 mg p.o. daily. 6. Hydrochlorothiazide 25 mg p.o. daily. 7. Glucosamine and chondroitin 2 caps p.o. daily. 8. Finasteride 5 mg p.o. daily. 9. Atorvastatin 40 mg p.o. daily. 10. Aspirin 81 mg p.o. daily. 11. Acetaminophen 650 mg p.o. q.4 hours p.r.n. CONDITION ON DISCHARGE: Stable. DISPOSITION: Home. TIME SPENT: Time spent on the patient is about 70 minutes with 30 of that spent [id number]. FATMATA SUAREZ, FISCAL SERVICES DIRECTOR [id number]/[facility] #: [id number] JERRY
[2019-07-25] MEDS ORDERED: Cephalexin CAP* 250 MG PO SCH (09:00)
== END 2019-07-24 13:58 | disposition home health service (06) | DRG 243 ==
LOC: ED 10:18 → MEDTELE 12:51 → OBSVTOIN 07-16 11:00
PROVIDERS: ADMIT Internal Medicine; ATTEND Internal Medicine
PROC: B2111ZZ Fluoroscopy of Multiple Coronary Arteries using Low Osmolar Contrast (ICD-10-PCS; 2019-07-20)
PROC: 02HK3JZ Insertion of Pacemaker Lead into Right Ventricle, Percutaneous Approach (ICD-10-PCS; 2019-07-23)
PROC: 02H63JZ Insertion of Pacemaker Lead into Right Atrium, Percutaneous Approach (ICD-10-PCS; 2019-07-23)
PROC: 0JH606Z Insertion of Pacemaker, Dual Chamber into Chest Subcutaneous Tissue and Fascia, Open Approach (ICD-10-PCS; principal; 2019-07-23 13:30)
DX: I49.5 Sick sinus syndrome (principal); N39.0 Urinary tract infection, site not specified; I47.2 Ventricular tachycardia; I48.0 Paroxysmal atrial fibrillation; I25.10 Atherosclerotic heart disease of native coronary artery without angina pectoris; I10 Essential (primary) hypertension; E78.5 Hyperlipidemia, unspecified; I08.3 Combined rheumatic disorders of mitral, aortic and tricuspid valves; I27.20 Pulmonary hypertension, unspecified; K21.9 Gastro-esophageal reflux disease without esophagitis; N40.0 Benign prostatic hyperplasia without lower urinary tract symptoms; E87.6 Hypokalemia; R94.6 Abnormal results of thyroid function studies; I49.3 Ventricular premature depolarization; B96.20 Unspecified Escherichia coli [E. coli] as the cause of diseases classified elsewhere; E03.9 Hypothyroidism, unspecified; E78.00 Pure hypercholesterolemia, unspecified; Z87.891 Personal history of nicotine dependence; Z79.899 Other long term (current) drug therapy; Z95.5 Presence of coronary angioplasty implant and graft; Z79.82 Long term (current) use of aspirin
CPT/HCPCS: 33208; 36415; 70450; 71045; 71046; 78452; 80048; 80053; 80320; 81003; 81015; 82140; 83605; 83735; 83880; 84439; 84443; 84481; 84484; 85025; 85610; 85730; 86850; 86900; 86901; 87077; 87086; 87186; 93005; 93017; 93306; 93454; 99156; 99157; 99284; A9270-GY; A9502; C1785; C1892; C1898; G0378; G0480; J0280; J0690; J0696; J1644; J1650; J2250; J2785; J3010; J3475

== ENCOUNTER → 2019-08-02 06:35 | Day surgery (SDC) | payer MEDICARE, BC ==
[~2019-08-02 06:35] MED LIST: Acetaminophen TAB* 325 MG PO PRN; Diazepam TAB(*) 5 MG ONE; Lidocaine 1% INJ* 10 MG/ML 30 ML SDV ONE; Midazolam* 1 MG/ML 5 ML VIAL (5 MG) ONE; ceFAZolin 2 GM in NS 100 ml - ONCE (Pharmacy Admix) IVPB ONE; ceFAZolin VIAL 1 GM in NS *SYRINGE * * 10 ML ONE; ceFAZolin VIAL(*) VIAL ONE; fentaNYL* 50 MCG/ML 2 ML VIAL (100 MCG VIAL) ONE
[2019-08-02 10:01] VITALS: BP 114/70
--- NOTE | 2019-08-02 10:47 | OP ---
CC: Dr. Driver; Dr. Tristan * DATE OF OPERATION: 08/02/2019 - [facility] CATH DATE OF : 1930. SURGEON: Dr. Odell Ritchie. ANESTHESIA: Local anesthesia with conscious sedation. PRE-OP DIAGNOSIS: Pacer pocket hematoma. POST-OP DIAGNOSIS: Pacer pocket hematoma. OPERATIVE PROCEDURE: Pacer pocket evacuation. ESTIMATED BLOOD LOSS: Nil. COMPLICATIONS: None. INDICATIONS: The patient is an 89-year-old gentleman who underwent pacemaker implantation last week who went home on blood thinners, Xarelto. He was instructed to stop his Coumadin, but unfortunately it was already in his pill box and he took Coumadin and Xarelto for five days. I saw the patient two days ago with a large hematoma. He was instructed to stop is Xarelto. He is scheduled for pocket evacuation today. DESCRIPTION OF PROCEDURE: The patient was brought to the procedure room in a fasting state. Informed consent had been obtained prior to the procedure. All labs have been reviewed. The patient was placed supine on the procedure table. His left pectoral area was cleaned and draped in the usual fashion. One percent Lidocaine was used for local anesthesia. The previous incision line was opened. The pocket was filled with old blood. The pacemaker was removed from the pocket. The old blood was removed from the pocket. The pocket was flushed with antibiotic infused normal saline. The bleeding was controlled. The pacer was placed back in the pocket. The surgical incision was closed in three layers. The patient tolerated the procedure well. There were no complications. The patient will go home on three days of antibiotics. [id number]/[facility] #: [id number] [facility] MED[facility] CENTERYohannes
== END | disposition home or self-care (01) ==
LOC: CHICATH 06:35
PROVIDERS: ATTEND Specialist
DX: T82.897A Other specified complication of cardiac prosthetic devices, implants and grafts, initial encounter (principal); Z95.0 Presence of cardiac pacemaker; I49.5 Sick sinus syndrome; I25.10 Atherosclerotic heart disease of native coronary artery without angina pectoris; I48.0 Paroxysmal atrial fibrillation; Z79.01 Long term (current) use of anticoagulants; R55 Syncope and collapse; E78.5 Hyperlipidemia, unspecified; I10 Essential (primary) hypertension; I35.8 Other nonrheumatic aortic valve disorders; Z87.891 Personal history of nicotine dependence
CPT/HCPCS: 21501; 99156; A9270-GY; J0690; J2250; J3010